=== PATIENT | female | born 1950 | race African-American/Black ===

== ENCOUNTER 2024-05-02 14:07 | Inpatient (IN) | payer OTHER, SELFPAY ==
--- NOTE | ~2024-05-02 | XR_ITS ---
EXAMINATION: XR chest 2V Exam Date/Time: 05/02/2024 17:30 CDT HISTORY: cough, sob Comparison: None. RESULT: Lines, tubes, and devices: None. Lungs and pleura: Mild diffuse reticular opacities with indistinct vessels. Segmental left lower lob e consolidation. Mild bilateral costophrenic angle blunting. Cardiomediastinal silhouette: Stable. Other: No acute osseous or upper abdominal finding. IMPRESSION: Segmental left lower lobe consolidation concerning for pneumonia, overlying changes of mild edema. Prater bsegmental opacities in the right lung base may represent atelectasis or additional sites of consolid ation. Small bilateral effusions. Reviewed, dictated and finalized at location K. IMPRESSION: Segmental left lower lobe consolidation concerning for pneumonia, overlying debbie nges of mild edema. Subsegmental opacities in the right lung base may represent atelectasis or additional sites of consolidation. Small bilateral effusions.
--- NOTE | ~2024-05-02 | XR_ITS ---
EXAMINATION: XR chest 2V DATE: 05/05/2024 14:23 INDICATION: Increased oxygen requirement. Shortness of breath. TECHNIQUE: Frontal and lateral views of the chest were obtained. COMPARISON: Chest 2 views 05/02/2024 FINDINGS: Calcified right lung nodules are consistent with old granulomatous disease. There are airsp alia opacities in the lower lung zones. No pleural effusion or pneumothorax. Cardiomegaly is noted. IMPRESSION: 1. Improved airspace opacities in the lower lung zones, consistent with atelectasis versus pneumonia. 2. Cardiomegaly. Reviewed, dictated and finalized at location A. IMPRESSION: 1. Improved airspace opacities in the lower lung zones, consistent with atelect asis versus pneumonia. 2. Cardiomegaly.
[2024-05-02 14:29] VITALS: BP 106/53; PULSE 98; RESP 20; TEMP 36.8; O2SAT 93
[2024-05-02 17:00] VITALS: BP 115/66; PULSE 93; RESP 20; TEMP 37.1; O2SAT 95; O2SAT 99
--- NOTE | 2024-05-02 17:14 | ED.SOB ---
HPI - SOB/Dyspnea General Chief Complaint: Shortness of Breath/Dyspnea Stated Complaint: SOb X1 month-weakness Time Seen by Provider: 05/02/24 17:00 History of Present Illness HPI Narrative: 74-year-old female history of hypertension presenting shortness of breath. Patient states that over the last month she has had progressive shortness of breath especially with exertion. States that she can barely go a few steps before she is out of breath. She went into urgent care today and she was found to be hypoxic on room air to 86 88%. She was placed on 2-3 L nasal cannula and her sats came up to the 90s. Patient states that she has used her 's inhaler a few times which seems to help. She denies any pain. She does complain of generalized weakness. No abdominal pain, leg swelling, vomiting, dysuria, lightheadedness, numbness, weakness, Fevers. States that she does start coughing if she tries to take a big breath. Related Data Allergies Allergy/AdvReac Type Severity Reaction Status Date / Time No Known Allergies Allergy Verified 05/02/24 14:08 Review of Systems Review of Systems: All systems reviewed & are unremarkable except as noted in HPI and below Exam Narrative: GENERAL: Nontoxic in no acute distress HEAD: Normocephalic, atraumatic. EYES: PERRLA and EOMI. ENT: Nares clear, no rhinorrhea or epistaxis NECK: Supple. CHEST: coarse sounds in the bases No respiratory distress. HEART: Regular rate and rhythm ABDOMEN: Soft, nontender, nondistended EXTREMITIES: Normal range of motion. No edema. SKIN: Warm, dry, no rash. NEURO: No focal deficits. Alert and oriented x3. PSYCH: Normal mood and affect. Course Vital Signs Vital signs: Vital Signs Temperature 98.3 F 05/02/24 14:29 Pulse Rate 98 05/02/24 14:29 Respiratory Rate 20 05/02/24 14:29 Blood Pressure 106/53 L 05/02/24 14:29 Pulse Oximetry 93 05/02/24 14:29 Oxygen Delivery Nasal Cannula 05/02/24 14:29 Oxygen Flow Rate 3 05/02/24 14:29 Temperature 98.7 F 05/02/24 17:00 Pulse Rate 91 05/02/24 18:29 Respiratory Rate 18 05/02/24 18:29 Blood Pressure 115/66 05/02/24 17:00 Pulse Oximetry 95 05/02/24 17:00 Oxygen Delivery Room Air 05/02/24 17:00 Oxygen Flow Rate 3 05/02/24 14:29 MDM - SOB/Dyspnea MDM Narrative Medical decision making narrative: 74-year-old female presenting with shortness of breath and hypoxia on room air. Patient was on 3 L nasal cannula on arrival, this was removed and she is actually maintaining her sats around 93%. EKG per my interpretation shows normal sinus rhythm, no ST elevations or depressions. chest x-ray is concerning for basilar consolidations. She does have a white count of nearly 13,000. Will cover her with Rocephin and azithromycin for community-acquired pneumonia. Patient states that she has had some symptomatic relief by using her 's inhaler, will order a breathing treatment as well. Feel she would benefit from admission for IV antibiotics given her age, multiple consolidations on x-ray, and the reported hypoxia earlier today. she is agreeable this plan. spoke with the hospitalist who has accepted her for admission. Differential Diagnosis Differential diagnosis: Likely acute exacerbation of chronic obstructive airways disease, congestive heart failure and community acquired pneumonia Medical Records Attestation: I reviewed the patient's medical records. Lab Data Attestation: I reviewed the patient's lab results. 05/02/24 17:52 05/02/24 17:52 Labs: Lab Results 05/02/24 05/02/24 Range/Units 17:52 17:52 WBC 12.3 H (4.5-10.0) K/mm3 RBC 4.76 (4.2-5.4) M/mm3 Hgb 12.9 (12.0-15.0) g/dL Hct 40.8 (37.0-47.0) % MCV 85.7 (80-100) fl MCH 27.1 (26-34) pg MCHC 31.6 L (32-36) g/dl RDW 15.1 H (11.5-14.5) % Plt Count 328 (150-375) k/mm3 MPV 9.2 (7.4-10.4) fl Immature Gran % (Auto) 0.8 H (0-0.5) % Neut % (Auto) 78.0 H (45.5-73.1) % Lymph % (Auto) 12.5 L (18.3-44.2) % [place] % (Auto) 5.9 (2.6-8.5) % Eos % (Auto) 2.2 (0-4.4) % Baso % (Auto) 0.6 (0.2-1.2) % Lymph # (Auto) 1.53 (0.9-3.2) K/mm3 [place] # (Auto) 0.7 H (0.1-0.6) K/mm3 Eos # (Auto) 0.3 (0-0.3) K/mm3 Baso # (Auto) 0.1 (0.0-0.1) K/mm3 Abs Immat Gran (auto) 0.10 H (0.00-0.031) K/mm3 Absolute Neuts (auto) 9.6 H (1.3-6.7) K/mm3 Absolute Nucleated RBC 0.000 (0.0-0.012) K/mm3 Nucleated RBC % 0.0 (0.0-0.2) % PT 15.1 H (11.1-14.7) Seconds INR 1.2 APTT 29.9 (22.3-36.8) Seconds Sodium 138 (137-145) mmol/L Potassium 4.2 (3.4-5.0) mmol/L Chloride 99 (98-107) mmol/L Carbon Dioxide 28 (22-30) mmol/L Anion Gap 11 (4-12) mmol/L BUN 24 H (7-17) mg/dL Creatinine 1.00 (0.7-1.0) mg/dL Estim Creat Clear Calc 46 ml/min Estimated GFR > 60 (59 - ) Glucose 88 (65-110) mg/dL Calcium 9.1 (8.4-10.2) mg/dL Total Bilirubin 0.4 (0.2-1.3) mg/dL AST 94 H (14-36) U/L ALT 27 (6-35) U/L Alkaline Phosphatase 56 (38-126) U/L Troponin I < 0.012 (0.000-0.034) ng/mL NT-Pro-B Natriuret Pep 101 H Cancelled (19.9-100) pg/mL Total Protein 8.0 (6.3-8.2) g/dL Albumin 3.7 (3.5-5.1) g/dL Influenza A (RT-PCR) Negative (Negative) Influenza B (RT-PCR) Negative (Negative) RSV (RT-PCR) Negative (Negative) SARS-CoV-2 RNA (RT-PCR) Negative (Negative) Imaging Data Radiologist's impression: ITS Impressions Chest X-Ray 05/02/24 17:40 IMPRESSION: Segmental left lower lobe consolidation concerning for pneumonia, overlying changes of mild edema. Subsegmental opacities in the right lung base may represent atelectasis or additional sites of consolidation. Small bilateral effusions. Critical Care Time Critical Care Time Critical Care Time: No Discharge Plan Discharge Clinical Impression: Community acquired pneumonia Patient Disposition: Still a Patient Condition: Stable Follow-up/Referrals: PHYSICIAN,INNOVATION ANALYST [Non-Staff] -
--- NOTE | 2024-05-02 17:17 | ECG_ITS ---
Test Date: 2024-05-02 18:10:30 Measurements Intervals [place] Rate: 87 P: 40 WA: 161 QRS: -3 QRSD: 87 T: 7 QT: 361 QTc: 436 Interpretive Statements SINUS RHYTHM NORMAL ELECTROCARDIOGRAM No previous ECG available for comparison Electronically Signed On 05-04-2024 07:12:05 CDT by Gregg Oneill M.D.
[2024-05-02] MEDS: SODIUM CHLORIDE 0.9% IV 1,000 ML 999 ML IV CONT (17:24)
[2024-05-02 17:59] LABS: Basophils Absolute Auto 0.1 K/mm3 (0.0-0.1); Basophils Percent Auto 0.6 % (0.2-1.2); Eosinophils Absolute Auto 0.3 K/mm3 (0-0.3); Eosinophils Percent Auto 2.2 % (0-4.4); Hematocrit 40.8 % (37.0-47.0); Hemoglobin 12.9 g/dL (12.0-15.0); Immature Granulocyte Percent A 0.8 % (0-0.5); Lymphocytes Absolute Auto 1.53 K/mm3 (0.9-3.2); Lymphocytes Percent Auto 12.5 % (18.3-44.2); Mean Corpuscular HGB Conc 31.6 g/dl (32-36); Mean Corpuscular Hemoglobin 27.1 pg (26-34); Mean Corpuscular Volume 85.7 fl (80-100); Mean Platelet Volume 9.2 fl (7.4-10.4); Monocytes Absolute Auto 0.7 K/mm3 (0.1-0.6); Monocytes Percent Auto 5.9 % (2.6-8.5); Neutrophils Absolute Auto 9.6 K/mm3 (1.3-6.7); Platelet Count Result 328 k/mm3 (150-375); Red Blood Count 4.76 M/mm3 (4.2-5.4); Red Cell Distribution Width 15.1 % (11.5-14.5); White Blood Count 12.3 K/mm3 (4.5-10.0)
[2024-05-02 18:10] LABS: INR 1.2; Partial Thromboplastin Time 29.9 Seconds (22.3-36.8); Prothrombin Time 15.1 Seconds (11.1-14.7)
[2024-05-02] MEDS: IPRATROPIUM BR 0.02% INH SOLN 0.5 MG/2.5 ML VIAL INHALATION (18:21)
[2024-05-02] MEDS: ALBUTEROL SULFATE NEB 2.5 MG/3 ML INH 5 MG INHALATION (18:21)
[2024-05-02 18:22] LABS: Alanine Aminotransferase 27 U/L (6-35); Albumin Level 3.7 g/dL (3.5-5.1); Alkaline Phosphatase 56 U/L (38-126); Anion Gap 11 mmol/L (4-12); Aspartate Amino Transferase 94 U/L (14-36); Bilirubin,Total 0.4 mg/dL (0.2-1.3); Blood Urea Nitrogen 24 mg/dL (7-17); Calcium 9.1 mg/dL (8.4-10.2); Carbon Dioxide 28 mmol/L (22-30); Chloride 99 mmol/L (98-107); Estimated CRCL calculation 46 ml/min; Estimated Glomerular Filt Rate > 60; Glucose 88 mg/dL (65-110); Potassium 4.2 mmol/L (3.4-5.0); Sodium 138 mmol/L (137-145)
[2024-05-02 18:23] VITALS: PULSE 85; RESP 15
[2024-05-02 18:29] VITALS: PULSE 91; RESP 18
[2024-05-02 18:34] LABS: NT Pro B Type Natriuretic Pept 101 pg/mL (19.9-100); Troponin I < 0.012 ng/mL (0.000-0.034)
[2024-05-02 18:36] LABS: Influenza A QL RT-PCR Negative (Negative); Influenza B QL RT-PCR Negative (Negative); RSV RNA, RT-PCR Negative (Negative); SARS-CoV-2 RNA PCR Negative (Negative)
--- NOTE | 2024-05-02 22:14 | P.HP_ITS ---
H&P: HPI History of Present Illness Date/Time: 05/02/24 22:14 Chief Complaint: shortness of breath/dyspnea Narrative: This is a 74-year-old female with a significant past medical history of hypertension who presents with shortness of breath/dyspnea and generalized weakness. patient was initially seen at the urgent care for her shortness of breath and they placed her on 2 L nasal cannula because they found her at 88% on room air. patient states that she has been feeling fatigued and short of breath for about a month. When her symptoms started she stated that she had some fevers, chills, and diaphoresis however that has resolved. She denies any fever, chills, nausea, vomiting, diarrhea, abdominal pain, chest pain. She states that her shortness of breath is more with exertion. Workup in the hospital included a chest x-ray which shown segmental left lower lobe consolidation concerning for pneumonia overlying changes of mild edema, subsegmental opacities in the right lung base representing atelectasis or additional sites of consolidation, small bilateral effusions. Initial labs included a white blood cell count of 12.3, AST 94, proBNP 101, troponin was negative. Respiratory panel was negative for influenza a and B, RSV, COVID. Blood cultures were obtained and are pending. Patient was given 1 L of normal saline, DuoNeb, Rocephin, azithromycin while in the ED. Review of Systems Review of Systems: All systems reviewed & are unremarkable except as noted in HPI and below Constitutional: Constitutional: Reports as per HPI and Reports no additional constitutional complaints Eyes: Eyes: Reports as per HPI and Reports no additional eye complaints ENT: Reports system reviewed and no additional complaints, except as documented and Reports as per HPI Cardiovascular: Cardiovascular: Reports as per HPI and Reports no additional cardiovascular complaints Respiratory: Respiratory: Reports as per HPI and Reports no additional respiratory complaints Gastrointestinal: Gastrointestinal: Reports as per HPI and Reports no additional gastrointestinal complaints Genitourinary: Genitourinary: Reports no additional female genitourinary complaints and Reports as per HPI Musculoskeletal: Musculoskeletal: Reports no additional musculoskeletal complaints and Reports as per HPI Integumentary/Breasts: Skin/Breast: Reports system reviewed and no additional complaints, except as docu and Reports as per HPI Neurologic: Reports system reviewed and no additional complaints, except as documented and Reports as per HPI Psychiatric: Psychiatric: Reports no additional psychiatric complaints and Reports as per HPI [facility] Past Medical History Medical History (Updated 05/02/24 @ 22:26 by Kandis Erickson APRN) Hypertension Family History Family History (Updated 05/02/24 @ 20:38 by Kelli Lisa RN) Sibling Acute myocardial infarction Other Dementia Social History Social History Smoking status: Never smoker Alcohol intake: never Substance use: never Substance use type: does not use Do You Feel Safe in your Home?: Yes Lack of Transportation: No Lack of Food: Never True Current Housing: I Have Housing Concerned About Future Housing: No Difficulty Paying Gas/Electric Bills: No Difficulty Paying for Meds: No Currently Unemployed: No Education: High School Diploma/GED Difficulty w/ Childcare or Family Care: No Spiritual care concerns: No Meds Home Medications and Allergies Home Medications Medication Instructions Recorded Confirmed Type cholecalciferol (vitamin D3) 50 50 mcg PO DAILY 05/02/24 05/02/24 History mcg (2,000 unit) tablet lisinopril 5 mg tablet 5 mg PO DAILY 05/02/24 05/02/24 History triamterene 37.5 1 tablet PO DAILY 05/02/24 05/02/24 History mg-hydrochlorothiazide 25 mg tablet Allergies Allergy/AdvReac Type Severity Reaction Status Date / Time No Known Allergies Allergy Verified 05/02/24 14:08 Vital Signs Vital Signs - 24 hr 05/02/24 14:29 05/02/24 17:00 05/02/24 17:00 Temperature 98.3 F 98.7 F Pulse Rate 98 93 Respiratory Rate 20 20 Blood Pressure 106/53 L 115/66 Pulse Oximetry 93 99 95 Oxygen Delivery Nasal Cannula Room Air Oxygen Flow Rate 3 05/02/24 18:23 05/02/24 18:29 Temperature Pulse Rate 85 91 Respiratory Rate 15 18 Blood Pressure Pulse Oximetry Oxygen Delivery Oxygen Flow Rate Exam Narrative: General: In no acute distress, well nourished Head: atraumatic, no encephalopathy Eyes: EOMI, PERRLA, sclera clear ENT: moist mucous membranes, nasal passages clear Neck: supple, no JVD, no adenopathy, trachea midline Cardiac: Normal S1 and S2. RRR,No murmur, gallops or friction rubs, peripheral pulses intact. Respiratory: crackles noted to bilateral lung bases, no adventitious lung sounds, currently on room air Gastrointestinal: soft, non-distended, non-tender, normoactive bowel sounds. : voiding without difficulty. Extremities: moves all extremities well, very mild pitting edema to bilateral lower extremity, good ROM, strength 5/5 Skin: clean, dry, intact. No wounds or lesions. Neuro: Alert and oriented x4, cranial nerves intact, no neuro deficits. Psych: normal mood, normal affect, interactive H&P: Results Labs Labs: Short CBC 05/02/24 Range/Units 17:52 WBC 12.3 H (4.5-10.0) K/mm3 Hgb 12.9 (12.0-15.0) g/dL Hct 40.8 (37.0-47.0) % Plt Count 328 (150-375) k/mm3 BMP 05/02/24 17:52 Sodium 138 Potassium 4.2 Chloride 99 Carbon Dioxide 28 BUN 24 H Creatinine 1.00 Glucose 88 Calcium 9.1 Cardiac Enzymes 05/02/24 Range/Units 17:52 Troponin I < 0.012 (0.000-0.034) ng/mL Liver Function 05/02/24 Range/Units 17:52 Total Bilirubin 0.4 (0.2-1.3) mg/dL AST 94 H (14-36) U/L ALT 27 (6-35) U/L Alkaline Phosphatase 56 (38-126) U/L Albumin 3.7 (3.5-5.1) g/dL Imaging Chest x-ray: Radiologist's impression: EXAMINATION: XR chest 2V Exam Date/Time: 05/02/2024 17:30 CDT HISTORY: cough, sob Comparison: None. RESULT: Lines, tubes, and devices: None. Lungs and pleura: Mild diffuse reticular opacities with indistinct vessels. Segmental left lower lobe consolidation. Mild bilateral costophrenic angle blunting. Cardiomediastinal silhouette: Stable. Other: No acute osseous or upper abdominal finding. IMPRESSION: Segmental left lower lobe consolidation concerning for pneumonia, overlying changes of mild edema. Subsegmental opacities in the right lung base may represent atelectasis or additional sites of consolidation. Small bilateral effusions. Reviewed, dictated and finalized at location K. Assessment and Plan Assessment and plan (1) Acute respiratory failure with hypoxia: Code(s): J96.01 - Acute respiratory failure with hypoxia Status: Acute Assessment and Plan: 05/02/24: * patient initially seen at the urgent care and was found to be hypoxic at 88% on room air and was placed on 2 L nasal cannula sent to the hospital for further evaluation. Patient was weaned to room air while in the ED. * likely secondary to pneumonia * chest x-ray showing pneumonia * Rocephin and azithromycin started * respiratory panel was negative for influenza a and B, RSV, COVID * continue DuoNebs (2) Community acquired pneumonia: Code(s): J18.9 - Pneumonia, unspecified organism Status: Acute Assessment and Plan: 05/02/24: * chest x-ray showing segmental left lower lobe consolidation concerning for pneumonia with overlying changes of mild edema, subsegmental opacities in the right lung base representing atelectasis verses additional site of consolidation, small bilateral effusions. * White blood cell count 12.3, proBNP was 101 * respiratory panel was negative for influenza a and B, RSV, COVID * continue Rocephin and azithromycin for community acquired pneumonia * continue DuoNebs (3) Hypertension: Code(s): I10 - Essential (primary) hypertension Status: Acute Assessment and Plan: 05/02/24: * continue lisinopril and Triamterene/HCTZ Quality VTE Prophylaxis VTE prophylaxis: pharmacologic ordered Hospitalist MIPS Advance Care Plan I have confirmed that the patient's Advanced Care Plan is present, code status is documented, or surrogate decision maker is listed in patient medical record.: Yes Medication Reconciliation I have utilized all available resources to obtain, update and review the patients current medications (includes all prescriptions, OTC, herbals, cannabis, and nutritional supplements).: Yes
--- NOTE | 2024-05-02 22:26 | PC.NURSE ---
Patient required multiple attempts at blood cultures. one set was successfully drawn and patient refused to allow any more sticks. patient stated you can come tomorrow and stick me in the morning phlebotomy is now making an attempt to draw labs. patient was taken to the bathroom with a tech who said that she didn't have an order for urine sample. patient unable to void at the time of transport to [facility].
[2024-05-02] MEDS: AZITHROMYCIN 500 MG/NS 250 ML 500 MG/250 ML BAG 250 MG IVPB (22:38)
[2024-05-02 22:42] VITALS: BMI 27.6
[2024-05-02 22:55] VITALS: BP 119/61; PULSE 110; RESP 22; TEMP 37; O2SAT 91
[2024-05-02 22:56] LABS: Troponin I < 0.012 ng/mL (0.000-0.034)
[2024-05-02 23:00] LABS: Add Urine Microscopic? YES; Appearance Urine Clear (Clear); Bacteria Urine 1+ /hpf; Bilirubin Urine Negative (Negative); Blood Urine Negative (Negative); Color Urine Yellow (Yellow); Glucose Urine UA Negative (Negative); Ketones Urine Negative (Negative); Leukocyte Esterase Ur 1+ LEU/UL (Negative); Nitrate Urine Negative (Negative); Non Pathogenic Casts 0-2; Protein Urine Negative (Negative); RBC Urine 0-2 /hpf (0-2); Specific Grav Ur 1.016 (1.001-1.035); Squamous Epithelial Cell Urine Few /hpf (Few)
[2024-05-03] VITALS (17 sets, daily range): BP systolic 102–125; BP diastolic 55–58; PULSE 79–108; RESP 18–22; TEMP 37–37.2; O2SAT 85–97
--- NOTE | 2024-05-03 | ECHO_ITS ---
Patient Info Name: Niraj Antonio Age: 74 years : 1950 Gender: Female Ht: 66 in Wt: 172 lbs BSA: 1.92 m2 HR: 87 bpm BP: 102 / 55 mmHg Heart Rhythm: Sinus Rhythm Technical Quality: Good Exam Date: 05/03/2024 11:31 AM Exam Location: Echo Lab Patient Status: Outpatient Admit Date: 05/02/2024 Staff Ordering Physician: Kandis Erickson APRN Manager Program Management: Faye Crowley RDCS Attending Provider: Gem Reyna PA-C Referring Physician: Dre HOLLIS; Exam Type: CA echo doppler color flow Study Info Indications - shortness of breath , fatigue Complete two-dimensional, color flow and Doppler transthoracic echocardiogram is performed. Summary 1. Complete two-dimensional, color flow and Doppler transthoracic echocardiogram is performed. 2. Normal left ventricular size and thickness with hyperdynamic systolic contractility. 3. Grade 1 diastolic noncompliance. 4. No valvular dysfunction. 5. Sinus rhythm. Left Ventricle Left ventricular chamber dimension is normal. Left ventricular systolic function is hyperdynamic, estimated at >70%. The left ventricular diastolic function is grade I diastolic dysfunction. Right Ventricle Right ventricular chamber dimension is normal. Left Atria Left atrial chamber dimension is normal. Right Atria Right atrial chamber dimension is normal. Aortic Valve The aortic valve is normal. Pulmonic Valve The pulmonic valve is not well visualized. Mitral Valve The mitral valve has normal leaflets. Tricuspid Valve The tricuspid valve leaflets are normal. Pericardium/Pleural The pericardium appears normal. Aorta The aortic root size at the sinus of Valsalva is normal. Left Ventricular Outflow Tract Name Value Normal LVOT 2D LVOT Diameter 2.1 cm LVOT Doppler LVOT Peak Gradient 5 mmHg LVOT Mean Gradient 3 mmHg LVOT VTI 19 cm LVOT VTI/AV VTI Ratio 0.8 LVOT Stroke Volume 65 ml LVOT CO 5.8 l/min LVOT CI 3.0 l/min/m2 Pulmonic Valve Name Value Normal PV Doppler PV Peak Gradient 6 mmHg Mitral Valve Name Value Normal MV Doppler MV Decel [place] 446 cm/s2 MV PHT 50 ms MV Area (PHT) 4.4 cm2 4.0-5.0 MV Diastolic Function MV E Peak Velocity 77 cm/s MV A Peak Velocity 94 cm/s MV E/A 0.8 MV Decel Time 172 ms MV Annular TDI MV E/e' (Septal) 8.1 <=8.0 MV E/e' (Lateral) 6.8 <=8.0 MV E/e' (Average) 7.5 Tricuspid Valve Name Value Normal TV Regurgitation Doppler TR Peak Velocity 202 cm/s TR Peak Gradient 9 mmHg Estimated PAP/RSVP RA Pressure 10 mmHg <=5 PA Systolic Pressure 26 mmHg <36 RV Systolic Pressure 26 mmHg <36 Aortic Valve Name Value Normal AV Doppler AV Peak Velocity 123 cm/s AV Peak Gradient 6 mmHg AV Mean Gradient 4 mmHg AV VTI 24 cm AV Area (Cont Eq VTI) 2.7 cm2 >=3.0 AV Area (Cont Eq Rinku) 3.0 cm2 AV Regurgitation 2D LVOT Area 3.4 cm2 Ventricles Name Value Normal LV Dimensions 2D/MM IVS Diastolic Thickness (2D) 0.9 cm 0.6-1.0 LVID Diastole (2D) 5.4 cm 3.8-5.2 LVIW Diastolic Thickness (2D) 0.9 cm 0.6-0.9 LVID Systole (2D) 3.4 cm 2.2-3.5 LVOT Diameter 2.1 cm LV Mass (2D Cubed) 176.77 g 67.00-162.00 LV Mass Index (2D Cubed) 92 g/m2 43-95 Relative Wall Thickness (2D) 0.33 LV Fractional Shortening/Ejection Fraction 2D/MM LV Fractional Shortening (2D) 37 % 27-45 LV EF (2D Teicholz) 67 % 54-74 LV Diastolic Volume (4C MOD) 99 ml LV EF (4C MOD) 61 % LV Diastolic Volume (2C MOD) 93 ml LV EF (2C MOD) 63 % LV Diastolic Volume (BP MOD) 96 ml 46-106 LV Diastolic Volume Index (BP MOD) 50 ml/m2 29-61 LV Systolic Volume (BP MOD) 38 ml 14-42 LV Systolic Volume Index (BP MOD) 20 ml/m2 8-24 LV EF (BP MOD) 60 % 54-74 LV Diastolic Length (4C) 8.2 cm LV Systolic Length (4C) 6.9 cm LV Stroke Volume (4C MOD) 60 ml Atria Name Value Normal LA Dimensions LA Volume (4C A-L) 25 ml LA Volume (BP A-L) 27 ml RA Dimensions RA Area (4C) 7.8 cm2 <=18.0 Report Signatures
[2024-05-03] MEDS: IPRATROPIUM 0.5 MG/ALBUTEROL SULFATE 2.5 MG AMPUL.NEB 3 ML INHALATION ×4 (01:39→19:44)
[2024-05-03 07:02] LABS: Basophils Absolute Auto 0.1 K/mm3 (0.0-0.1); Basophils Percent Auto 0.7 % (0.2-1.2); Eosinophils Absolute Auto 0.4 K/mm3 (0-0.3); Eosinophils Percent Auto 3.3 % (0-4.4); Hematocrit 36.1 % (37.0-47.0); Hemoglobin 10.9 g/dL (12.0-15.0); Immature Granulocyte Percent A 0.8 % (0-0.5); Lymphocytes Absolute Auto 1.63 K/mm3 (0.9-3.2); Lymphocytes Percent Auto 13.4 % (18.3-44.2); Mean Corpuscular HGB Conc 30.2 g/dl (32-36); Mean Corpuscular Hemoglobin 26.7 pg (26-34); Mean Corpuscular Volume 88.5 fl (80-100); Mean Platelet Volume 9.7 fl (7.4-10.4); Monocytes Absolute Auto 1.1 K/mm3 (0.1-0.6); Monocytes Percent Auto 9.2 % (2.6-8.5); Neutrophils Absolute Auto 8.8 K/mm3 (1.3-6.7); Neutrophils Percent Auto 72.6 % (45.5-73.1); Platelet Count Result 294 k/mm3 (150-375); Red Blood Count 4.08 M/mm3 (4.2-5.4); Red Cell Distribution Width 15.2 % (11.5-14.5); White Blood Count 12.1 K/mm3 (4.5-10.0)
[2024-05-03 07:31] LABS: Alanine Aminotransferase 22 U/L (6-35); Albumin Level 3.1 g/dL (3.5-5.1); Alkaline Phosphatase 45 U/L (38-126); Anion Gap 10 mmol/L (4-12); Aspartate Amino Transferase 73 U/L (14-36); Bilirubin,Total 0.3 mg/dL (0.2-1.3); Blood Urea Nitrogen 19 mg/dL (7-17); Calcium 8.2 mg/dL (8.4-10.2); Carbon Dioxide 23 mmol/L (22-30); Chloride 103 mmol/L (98-107); Estimated CRCL calculation 46 ml/min; Estimated Glomerular Filt Rate > 60; Glucose 108 mg/dL (65-110); Potassium 3.8 mmol/L (3.4-5.0); Sodium 136 mmol/L (137-145)
--- NOTE | 2024-05-03 07:39 | PM.IMPN ---
Progress Note: A&P Assessment and Plan (1) Acute respiratory failure with hypoxia: Code(s): J96.01 - Acute respiratory failure with hypoxia Status: Acute Assessment and Plan: Patient initially seen at the urgent care and was found to be hypoxic at 88% on room air and was placed on 2 L nasal cannula sent to the hospital for further evaluation. Patient was weaned to room air while in the ED. - likely secondary to pneumonia - chest x-ray: Segmental left lower lobe consolidation concerning for pneumonia, overlying changes of mild edema. Subsegmental opacities in the right lung base may represent atelectasis or additional sites of consolidation. Small bilateral effusions. - Rocephin and azithromycin started on 05/02 - respiratory panel was negative for influenza a and B, RSV, COVID - BNP 101 - Echo: LVEF > 70% and grade I diastolic dysfunction - continue DuoNebs (2) Community acquired pneumonia: Code(s): J18.9 - Pneumonia, unspecified organism Status: Acute Assessment and Plan: CXR: Segmental left lower lobe consolidation concerning for pneumonia, overlying changes of mild edema. Subsegmental opacities in the right lung base may represent atelectasis or additional sites of consolidation. Small bilateral effusions. - started on CAP tx: azithromycin ceftriaxone on 05/02 - Viral PCR: negative for Flu/COVID/RSV - Send sputum cultures - initially requiring 2L NC w/ EMS, weaned to baseline RA in ED. Keep SpO2 greater than 90%. - supportive treatment tyl and ibu prn nebs prn - Monitor vital signs, I&Os, neuro status and patient is a fall risk - Follow WBC, serum electrolytes, temperature curves and cultures (3) Hypertension: Code(s): I10 - Essential (primary) hypertension Status: Acute Assessment and Plan: Chronic, continue home medications. - continue lisinopril and Triamterene/HCTZ Time Spent With Patient Time with patient: 25 - 35 minutes Subjective Date/time seen: 05/03/24 07:39 Interval history: 74-year-old female with a significant past medical history of hypertension who presents with shortness of breath/dyspnea and generalized weakness. patient was initially seen at the urgent care for her shortness of breath and they placed her on 2 L nasal cannula because they found her at 88% on room air. Patient is pleasant lying comfortably in bed. She continues to endorse shortness of breath, but notes this has improved since admission. She denies chest pain, palpitations, nausea/vomiting and changes in bowel/bladder. She remains on CAP treatment at this time. Echo was normal. Review of Systems Review of Systems: All systems reviewed & are unremarkable except as noted in HPI and below Exam Narrative: AF HR 87 RR 20 SpO2 92 BP 102/55 General: female in no acute respiratory distress who is nontoxic appearing, lying semi recumbent in bed. HEENT: Normocephalic. Atraumatic. Extraocular movement intact. Sclera clear and anicteric. No facial asymmetry. Chest: Lungs with crackles to lower bases on auscultation bilaterally. No wheezes or crackles. CV: Heart was regular rate and rhythm. S1-S2. No murmurs, gallops, or rubs. Abd: Abdomen was soft. Nontender. Nondistended. Positive bowel sounds. No organomegaly or masses. Ext: No clubbing, cyanosis, or edema. 2+ DP pulses bilaterally. Neuro: Patient is alert and oriented x4. Cranial nerves 2-12 are intact. Speech is clear. Psych: Normal nood and affect. Patient is pleasant and cooperative. Objective Data Vital Signs Vital Signs: Vital Signs - 24 hr 05/02/24 14:29 05/02/24 17:00 05/02/24 17:00 Temperature 98.3 F 98.7 F Pulse Rate 98 93 Respiratory Rate 20 20 Blood Pressure 106/53 L 115/66 Pulse Oximetry 93 99 95 Oxygen Delivery Nasal Cannula Room Air Oxygen Flow Rate 3 05/02/24 18:23 05/02/24 18:29 05/02/24 22:55 Temperature 98.6 F Pulse Rate 85 91 110 H Respiratory Rate 15 18 22 H Blood Pressure 119/61 Pulse Oximetry 91 Oxygen Delivery Oxygen Flow Rate 05/03/24 01:42 05/03/24 01:46 05/03/24 00:00 Temperature Pulse Rate 92 95 108 H Respiratory Rate 20 20 Blood Pressure Pulse Oximetry Oxygen Delivery Oxygen Flow Rate 05/03/24 05:05 05/03/24 04:00 Temperature 98.6 F Pulse Rate 87 88 Respiratory Rate 20 Blood Pressure 102/55 L Pulse Oximetry 92 Oxygen Delivery Oxygen Flow Rate Intake/Output Intake/Output: Intake & Output 04/30/24 05/01/24 05/02/24 05/03/24 23:59 23:59 23:59 23:59 Intake Total 1000 75 Output Total 250 Balance 1000 -175 Meds/Results Medications: Active Medications Generic Name Dose Route Start Last Admin Trade Name Freq PRN Reason Stop Dose Admin Acetaminophen 650 mg 05/02/24 22:19 Acetaminophen 325 Mg Tablet PO Q4H PRN Mild Pain (1-3) or Fever Albuterol/Ipratropium 3 ml 05/03/24 02:00 05/03/24 01:39 Ipratropium 0.5 Mg/Albuterol Sulfate 2.5 Mg Ampul.Neb 3 Ml INHALATION 3 ml Q6HRT [facility] Administration Enoxaparin Sodium 40 mg 05/03/24 09:00 Enoxaparin 40 Mg/0.4 Ml Syringe SUB-Q DAILY [facility] Ceftriaxone Sodium 1 gm in 50 mls @ 100 mls/hr 05/03/24 21:00 Rocephin 1 Gm/Ns 50 Ml IVPB HS [facility] Azithromycin 500 mg in 250 mls @ 250 mls/hr 05/03/24 21:00 Zithromax IVPB HS [facility] Lisinopril 5 mg 05/03/24 18:00 Lisinopril 5 Mg Tablet PO QPM [facility] Ondansetron HCl 4 mg 05/02/24 22:19 Ondansetron Inj 4 Mg/2 Ml Vial IV PUSH Q6H PRN Nausea And Vomiting Perflutren Lipid Microsphere 0 ml 05/03/24 00:07 Perflutren Lipid Microspheres 1.5 Ml Vial Diluted To 10 Ml Total Volume IV PUSH 05/06/24 00:07 ONCE PRN adequate visualization Protocol Triamterene/Hydrochlorothiazide 1 tab 05/03/24 18:00 Triamterene 37.5 Mg/Hctz 25 Mg (Maxzide) Tablet PO QPM [facility] Vitamin D 2,000 units 05/03/24 09:00 Cholecalciferol 1,000 Units Tablet PO DAILY [facility] Radiology Results: ITS Impressions Chest X-Ray 05/02/24 17:40 IMPRESSION: Segmental left lower lobe consolidation concerning for pneumonia, overlying changes of mild edema. Subsegmental opacities in the right lung base may represent atelectasis or additional sites of consolidation. Small bilateral effusions. Labs Labs: Laboratory Results - last 24 hr 05/02/24 05/02/24 05/02/24 17:52 17:52 22:28 WBC 12.3 H RBC 4.76 Hgb 12.9 Hct 40.8 MCV 85.7 MCH 27.1 MCHC 31.6 L RDW 15.1 H Plt Count 328 MPV 9.2 Immature Gran % (Auto) 0.8 H Neut % (Auto) 78.0 H Lymph % (Auto) 12.5 L [place] % (Auto) 5.9 Eos % (Auto) 2.2 Baso % (Auto) 0.6 Lymph # (Auto) 1.53 [place] # (Auto) 0.7 H Eos # (Auto) 0.3 Baso # (Auto) 0.1 Abs Immat Gran (auto) 0.10 H Absolute Neuts (auto) 9.6 H Absolute Nucleated RBC 0.000 Nucleated RBC % 0.0 PT 15.1 H INR 1.2 APTT 29.9 Sodium 138 Potassium 4.2 Chloride 99 Carbon Dioxide 28 Anion Gap 11 BUN 24 H Creatinine 1.00 Estim Creat Clear Calc 46 Estimated GFR > 60 Glucose 88 Calcium 9.1 Total Bilirubin 0.4 AST 94 H ALT 27 Alkaline Phosphatase 56 Troponin I < 0.012 < 0.012 NT-Pro-B Natriuret Pep 101 H Cancelled Total Protein 8.0 Albumin 3.7 Urine Color Urine Appearance Urine pH Ur Specific [place] Urine Protein Urine Glucose (UA) Urine Ketones Ur Blood (Man) Urine Nitrate Urine Bilirubin Urine Urobilinogen Leukocyte Esterase Rfl Urine RBC Urine WBC Ur Squamous Epith Cells Urine Bacteria Urine Casts Influenza A (RT-PCR) Negative Influenza B (RT-PCR) Negative RSV (RT-PCR) Negative SARS-CoV-2 RNA (RT-PCR) Negative 05/02/24 05/03/24 22:46 06:12 WBC 12.1 H RBC 4.08 L Hgb 10.9 L Hct 36.1 L MCV 88.5 MCH 26.7 MCHC 30.2 L RDW 15.2 H Plt Count 294 MPV 9.7 Immature Gran % (Auto) 0.8 H Neut % (Auto) 72.6 Lymph % (Auto) 13.4 L [place] % (Auto) 9.2 H Eos % (Auto) 3.3 Baso % (Auto) 0.7 Lymph # (Auto) 1.63 [place] # (Auto) 1.1 H Eos # (Auto) 0.4 H Baso # (Auto) 0.1 Abs Immat Gran (auto) 0.10 H Absolute Neuts (auto) 8.8 H Absolute Nucleated RBC 0.000 Nucleated RBC % 0.0 PT INR APTT Sodium 136 L Potassium 3.8 Chloride 103 Carbon Dioxide 23 Anion Gap 10 BUN 19 H Creatinine 1.00 Estim Creat Clear Calc 46 Estimated GFR > 60 Glucose 108 Calcium 8.2 L Total Bilirubin 0.3 AST 73 H ALT 22 Alkaline Phosphatase 45 Troponin I NT-Pro-B Natriuret Pep Total Protein 7.0 Albumin 3.1 L Urine Color Yellow Urine Appearance Clear Urine pH 6.0 Ur Specific [place] 1.016 Urine Protein Negative Urine Glucose (UA) Negative Urine Ketones Negative Ur Blood (Man) Negative Urine Nitrate Negative Urine Bilirubin Negative Urine Urobilinogen 1.0 Leukocyte Esterase Rfl 1+ H Urine RBC 0-2 Urine WBC 6-10 H Ur Squamous Epith Cells Few Urine Bacteria 1+ H Urine Casts 0-2 Influenza A (RT-PCR) Influenza B (RT-PCR) RSV (RT-PCR) SARS-CoV-2 RNA (RT-PCR) Quality VTE Prophylaxis VTE prophylaxis: pharmacologic ordered Hospitalist [facility] Advance Care Plan I have confirmed that the patient's Advanced Care Plan is present, code status is documented, or surrogate decision maker is listed in patient medical record.: Yes Medication Reconciliation I have utilized all available resources to obtain, update and review the patients current medications (includes all prescriptions, OTC, herbals, cannabis, and nutritional supplements).: Yes
[2024-05-03 07:42] LABS: Troponin I < 0.012 ng/mL (0.000-0.034)
[2024-05-03] MEDS: ENOXAPARIN 40 MG/0.4 ML SYRINGE SUB-Q (09:06)
[2024-05-03] MEDS: CHOLECALCIFEROL 1,000 UNITS TABLET 2000 UNITS PO (09:06)
[2024-05-03] MEDS: lisinopriL 5 MG TABLET PO (17:44)
[2024-05-03] MEDS: TRIAMTERENE 37.5 MG/HCTZ 25 MG (MAXZIDE) TABLET 1 TAB PO (17:44)
[2024-05-03] MEDS: AZITHROMYCIN 500 MG/NS 250 ML 500 MG/250 ML BAG 250 MG IVPB (20:24)
[2024-05-04] VITALS (18 sets, daily range): BP systolic 112–133; BP diastolic 45–66; PULSE 83–97; RESP 18–20; TEMP 36.3–36.8; O2SAT 91–98
[2024-05-04] MEDS: IPRATROPIUM 0.5 MG/ALBUTEROL SULFATE 2.5 MG AMPUL.NEB 3 ML INHALATION ×4 (02:40→21:22)
[2024-05-04 06:53] LABS: Basophils Absolute Auto 0.1 K/mm3 (0.0-0.1); Basophils Percent Auto 0.9 % (0.2-1.2); Eosinophils Absolute Auto 0.5 K/mm3 (0-0.3); Eosinophils Percent Auto 3.7 % (0-4.4); Hematocrit 34.1 % (37.0-47.0); Hemoglobin 10.4 g/dL (12.0-15.0); Immature Granulocyte Absolute 0.08 K/mm3 (0.00-0.031); Immature Granulocyte Percent A 0.6 % (0-0.5); Lymphocytes Absolute Auto 1.86 K/mm3 (0.9-3.2); Lymphocytes Percent Auto 14.5 % (18.3-44.2); Mean Corpuscular HGB Conc 30.5 g/dl (32-36); Mean Corpuscular Hemoglobin 26.5 pg (26-34); Mean Corpuscular Volume 86.8 fl (80-100); Mean Platelet Volume 9.2 fl (7.4-10.4); Monocytes Absolute Auto 1.1 K/mm3 (0.1-0.6); Monocytes Percent Auto 8.5 % (2.6-8.5); Neutrophils Absolute Auto 9.2 K/mm3 (1.3-6.7); Neutrophils Percent Auto 71.8 % (45.5-73.1); Platelet Count Result 277 k/mm3 (150-375); Red Blood Count 3.93 M/mm3 (4.2-5.4); Red Cell Distribution Width 14.9 % (11.5-14.5); White Blood Count 12.8 K/mm3 (4.5-10.0)
[2024-05-04 07:04] LABS: Alanine Aminotransferase 22 U/L (6-35); Alkaline Phosphatase 41 U/L (38-126); Anion Gap 8 mmol/L (4-12); Aspartate Amino Transferase 67 U/L (14-36); Bilirubin,Total 0.2 mg/dL (0.2-1.3); Blood Urea Nitrogen 15 mg/dL (7-17); Calcium 8.1 mg/dL (8.4-10.2); Carbon Dioxide 25 mmol/L (22-30); Chloride 102 mmol/L (98-107); Estimated CRCL calculation 51 ml/min; Estimated Glomerular Filt Rate > 60; Glucose 101 mg/dL (65-110); Potassium 3.6 mmol/L (3.4-5.0); Sodium 135 mmol/L (137-145)
--- NOTE | 2024-05-04 07:30 | P.PNIM_ITS ---
Progress Note: A&P Assessment and Plan (1) Acute respiratory failure with hypoxia: Code(s): J96.01 - Acute respiratory failure with hypoxia Status: Acute Assessment and Plan: Patient initially seen at the urgent care and was found to be hypoxic at 88% on room air and was placed on 2 L nasal cannula sent to the hospital for further evaluation. Patient was weaned to room air while in the ED. - likely secondary to pneumonia - chest x-ray: Segmental left lower lobe consolidation concerning for pneumonia, overlying changes of mild edema. Subsegmental opacities in the right lung base may represent atelectasis or additional sites of consolidation. Small bilateral effusions. - Rocephin and azithromycin started on 05/02 - respiratory panel was negative for influenza a and B, RSV, COVID - BNP 101 - Echo: LVEF > 70% and grade I diastolic dysfunction - continue DuoNebs 05/04: Patient has been placed back on supplemental oxygen. Per RN patient was dropping into the mid 80s with ambulation. She is now on 1L NC at rest. Will continue to wean as tolerated. If patient continues to require O2 supplementation a home O2 eval will need to be done prior to discharge. (2) Community acquired pneumonia: Code(s): J18.9 - Pneumonia, unspecified organism Status: Acute Assessment and Plan: CXR: Segmental left lower lobe consolidation concerning for pneumonia, overlying changes of mild edema. Subsegmental opacities in the right lung base may represent atelectasis or additional sites of consolidation. Small bilateral effusions. - started on CAP tx: azithromycin ceftriaxone on 05/02 - Viral PCR: negative for Flu/COVID/RSV - initially requiring 2L NC w/ EMS, weaned to baseline RA in ED. Now require 1L NC with rest and 2 L NC with ambulation. Continue to wean as tolerated for a SpO2 > 90. - supportive treatment tyl and ibu prn nebs prn - Monitor vital signs, I&Os, neuro status and patient is a fall risk - Follow WBC, serum electrolytes, temperature curves and cultures (3) Hypertension: Code(s): I10 - Essential (primary) hypertension Status: Acute Assessment and Plan: Chronic, continue home medications. - continue lisinopril and Triamterene/HCTZ Plan Diet: Regular diet DVT ppx: Lovenox Code: Full Disposition: Patient reports for SOB and new O2 requirement from an urgent care. Chest XR showing pneumonia. Was weaned back to baseline RA, however last night started having drops to mid 80s. Now on 1L at rest and 2 L with ambulation. She remains on rocephin and azithro. Time Spent With Patient Time with patient: 25 - 35 minutes Subjective Date/time seen: 05/04/24 07:30 Interval history: 74-year-old female with a significant past medical history of hypertension who presents with shortness of breath/dyspnea and generalized weakness. Patient was initially seen at the urgent care for her shortness of breath and they placed her on 2 L nasal cannula because they found her at 88% on room air. Patient is pleasant sitting on the side of the bed. Per RN she had a drop in her saturation overnight with SpO2 in the mid 80s with ambulation. She was started on 2 L with ambulation and remains on 1 L NC at rest. Will continue to wean as tolerated. Patient states that her shortness of breath has been improving. She denies chest pain, nausea/vomiting and changes in bowel/bladder. She did endorse slight dizziness when initially standing to ambulate to her bathroom. Discussed with patient the importance of slow position changes as she has been more bed bound while in the hospital. PT/OT continues to follow. Review of Systems Review of Systems: All systems reviewed & are unremarkable except as noted in HPI and below Exam Narrative: AF HR 86 RR 18 SpO2 96 1L NC BP 112/45 General: female in no acute respiratory distress who is nontoxic appearing, lying semi recumbent in bed. HEENT: Normocephalic. Atraumatic. Extraocular movement intact. Sclera clear and anicteric. No facial asymmetry. Chest: Lungs with crackles to lower bases on auscultation bilaterally. No wheezes. [address] CV: Heart was regular rate and rhythm. S1-S2. No murmurs, gallops, or rubs. Abd: Abdomen was soft. Nontender. Nondistended. Positive bowel sounds. No organomegaly or masses. Neuro: Speech is clear. Objective Data Vital Signs Vital Signs: Vital Signs - 24 hr 05/03/24 08:14 05/03/24 08:14 05/03/24 08:57 Temperature Pulse Rate 79 88 Respiratory Rate 20 18 Blood Pressure Pulse Oximetry 91 Oxygen Delivery Room Air Oxygen Flow Rate 05/03/24 09:10 05/03/24 14:05 05/03/24 14:13 Temperature Pulse Rate 83 87 Respiratory Rate 18 18 Blood Pressure Pulse Oximetry Oxygen Delivery Room Air Oxygen Flow Rate 05/03/24 08:00 05/03/24 12:00 05/03/24 14:00 Temperature 98.6 F Pulse Rate 84 93 102 H Respiratory Rate 22 H Blood Pressure 104/58 L Pulse Oximetry 85 L Oxygen Delivery Oxygen Flow Rate 05/03/24 16:00 05/03/24 19:44 05/03/24 19:44 Temperature Pulse Rate 87 88 Respiratory Rate 18 Blood Pressure Pulse Oximetry 94 Oxygen Delivery Nasal Cannula Oxygen Flow Rate 1 05/03/24 19:50 05/03/24 20:59 05/03/24 20:00 Temperature 99 F Pulse Rate 89 95 99 Respiratory Rate 18 18 Blood Pressure 125/55 L Pulse Oximetry 97 Oxygen Delivery Oxygen Flow Rate 05/03/24 20:00 05/04/24 02:40 05/04/24 00:00 Temperature Pulse Rate 89 91 Respiratory Rate Blood Pressure Pulse Oximetry 92 Oxygen Delivery Nasal Cannula Oxygen Flow Rate 2 05/04/24 04:00 05/04/24 05:14 Temperature 98.2 F Pulse Rate 96 86 Respiratory Rate 18 Blood Pressure 112/45 L Pulse Oximetry 96 Oxygen Delivery Oxygen Flow Rate Intake/Output Intake/Output: Intake & Output 05/01/24 05/02/24 05/03/24 05/04/24 23:59 23:59 23:59 23:59 Intake Total 1000 995 300 Output Total 250 Balance 1000 745 300 Meds/Results Medications: Active Medications Generic Name Dose Route Start Last Admin Trade Name Freq PRN Reason Stop Dose Admin Acetaminophen 650 mg 05/02/24 22:19 Acetaminophen 325 Mg Tablet PO Q4H PRN Mild Pain (1-3) or Fever Albuterol/Ipratropium 3 ml 05/03/24 02:00 05/04/24 02:40 Ipratropium 0.5 Mg/Albuterol Sulfate 2.5 Mg Ampul.Neb 3 Ml INHALATION 3 ml Q6HRT [facility] Administration Enoxaparin Sodium 40 mg 05/03/24 09:00 05/03/24 09:06 Enoxaparin 40 Mg/0.4 Ml Syringe SUB-Q 40 mg DAILY [facility] Administration Ceftriaxone Sodium 1 gm in 50 mls @ 100 mls/hr 05/03/24 21:00 05/03/24 20:24 Rocephin 1 Gm/Ns 50 Ml IVPB 100 mls/hr HS [facility] Administration Azithromycin 500 mg in 250 mls @ 250 mls/hr 05/03/24 21:00 05/03/24 20:24 Zithromax IVPB 250 mls/hr HS [facility] Administration Lisinopril 5 mg 05/03/24 18:00 05/03/24 17:44 Lisinopril 5 Mg Tablet PO 5 mg QPM [facility] Administration Ondansetron HCl 4 mg 05/02/24 22:19 Ondansetron Inj 4 Mg/2 Ml Vial IV PUSH Q6H PRN Nausea And Vomiting Perflutren Lipid Microsphere 0 ml 05/03/24 00:07 Perflutren Lipid Microspheres 1.5 Ml Vial Diluted To 10 Ml Total Volume IV PUSH 05/06/24 00:07 ONCE PRN adequate visualization Protocol Triamterene/Hydrochlorothiazide 1 tab 05/03/24 18:00 05/03/24 17:44 Triamterene 37.5 Mg/Hctz 25 Mg (Maxzide) Tablet PO 1 tab QPM [facility] Administration Vitamin D 2,000 units 05/03/24 09:00 05/03/24 09:06 Cholecalciferol 1,000 Units Tablet PO 2,000 units DAILY [facility] Administration Radiology Results: ITS Impressions Chest X-Ray 05/02/24 17:40 IMPRESSION: Segmental left lower lobe consolidation concerning for pneumonia, overlying changes of mild edema. Subsegmental opacities in the right lung base may represent atelectasis or additional sites of consolidation. Small bilateral effusions. Labs Labs: Laboratory Results - last 24 hr 05/03/24 05/04/24 06:12 06:43 WBC 12.8 H RBC 3.93 L Hgb 10.4 L Hct 34.1 L MCV 86.8 MCH 26.5 MCHC 30.5 L RDW 14.9 H Plt Count 277 MPV 9.2 Immature Gran % (Auto) 0.6 H Neut % (Auto) 71.8 Lymph % (Auto) 14.5 L [place] % (Auto) 8.5 Eos % (Auto) 3.7 Baso % (Auto) 0.9 Lymph # (Auto) 1.86 [place] # (Auto) 1.1 H Eos # (Auto) 0.5 H Baso # (Auto) 0.1 Abs Immat Gran (auto) 0.08 H Absolute Neuts (auto) 9.2 H Absolute Nucleated RBC 0.000 Nucleated RBC % 0.0 Sodium 136 L 135 L Potassium 3.8 3.6 Chloride 103 102 Carbon Dioxide 23 25 Anion Gap 10 8 BUN 19 H 15 Creatinine 1.00 0.90 Estim Creat Clear Calc 46 51 Estimated GFR > 60 > 60 Glucose 108 101 Calcium 8.2 L 8.1 L Total Bilirubin 0.3 0.2 AST 73 H 67 H ALT 22 22 Alkaline Phosphatase 45 41 Troponin I < 0.012 Total Protein 7.0 7.0 Albumin 3.1 L 3.0 L Quality VTE Prophylaxis VTE prophylaxis: mechanical ordered and pharmacologic ordered Hospitalist [facility] Advance Care Plan I have confirmed that the patient's Advanced Care Plan is present, code status is documented, or surrogate decision maker is listed in patient medical record.: Yes Medication Reconciliation I have utilized all available resources to obtain, update and review the patients current medications (includes all prescriptions, OTC, herbals, cannabis, and nutritional supplements).: Yes
[2024-05-04] MEDS: CHOLECALCIFEROL 1,000 UNITS TABLET 2000 UNITS PO (08:34)
[2024-05-04] MEDS: ACETAMINOPHEN 325 MG TABLET 650 MG PO ×2 (08:36→16:09)
[2024-05-04] MEDS: lisinopriL 5 MG TABLET PO (17:22)
[2024-05-04] MEDS: TRIAMTERENE 37.5 MG/HCTZ 25 MG (MAXZIDE) TABLET 1 TAB PO (17:22)
[2024-05-04] MEDS: AZITHROMYCIN 500 MG/NS 250 ML 500 MG/250 ML BAG 250 MG IVPB (20:50)
[2024-05-05] VITALS (17 sets, daily range): BP systolic 123–129; BP diastolic 59–70; PULSE 87–106; RESP 14–20; TEMP 36.4–36.8; O2SAT 93–97
[2024-05-05] MEDS: IPRATROPIUM 0.5 MG/ALBUTEROL SULFATE 2.5 MG AMPUL.NEB 3 ML INHALATION ×4 (02:55→20:00)
[2024-05-05] MEDS: ACETAMINOPHEN 325 MG TABLET 650 MG PO ×3 (04:41→18:23)
[2024-05-05 05:53] LABS: Basophils Absolute Auto 0.1 K/mm3 (0.0-0.1); Basophils Percent Auto 0.7 % (0.2-1.2); Eosinophils Absolute Auto 0.6 K/mm3 (0-0.3); Eosinophils Percent Auto 4.9 % (0-4.4); Hematocrit 32.7 % (37.0-47.0); Hemoglobin 10.3 g/dL (12.0-15.0); Immature Granulocyte Absolute 0.09 K/mm3 (0.00-0.031); Immature Granulocyte Percent A 0.8 % (0-0.5); Lymphocytes Absolute Auto 1.44 K/mm3 (0.9-3.2); Lymphocytes Percent Auto 12.6 % (18.3-44.2); Mean Corpuscular HGB Conc 31.5 g/dl (32-36); Mean Corpuscular Hemoglobin 27.5 pg (26-34); Mean Corpuscular Volume 87.4 fl (80-100); Mean Platelet Volume 9.2 fl (7.4-10.4); Monocytes Absolute Auto 0.9 K/mm3 (0.1-0.6); Monocytes Percent Auto 8.1 % (2.6-8.5); Neutrophils Absolute Auto 8.3 K/mm3 (1.3-6.7); Neutrophils Percent Auto 72.9 % (45.5-73.1); Platelet Count Result 270 k/mm3 (150-375); Red Blood Count 3.74 M/mm3 (4.2-5.4); White Blood Count 11.4 K/mm3 (4.5-10.0)
[2024-05-05 06:11] LABS: Alanine Aminotransferase 22 U/L (6-35); Alkaline Phosphatase 55 U/L (38-126); Anion Gap 8 mmol/L (4-12); Aspartate Amino Transferase 65 U/L (14-36); Bilirubin,Total 0.1 mg/dL (0.2-1.3); Blood Urea Nitrogen 16 mg/dL (7-17); Calcium 8.3 mg/dL (8.4-10.2); Carbon Dioxide 25 mmol/L (22-30); Chloride 103 mmol/L (98-107); Estimated CRCL calculation 51 ml/min; Estimated Glomerular Filt Rate > 60; Glucose 107 mg/dL (65-110); Potassium 3.6 mmol/L (3.4-5.0); Sodium 136 mmol/L (137-145)
[2024-05-05] MEDS: ENOXAPARIN 40 MG/0.4 ML SYRINGE SUB-Q (08:03)
[2024-05-05] MEDS: CHOLECALCIFEROL 1,000 UNITS TABLET 2000 UNITS PO (08:03)
--- NOTE | 2024-05-05 11:26 | PM.IMPN ---
Progress Note: A&P Assessment and Plan (1) Acute respiratory failure with hypoxia: Code(s): J96.01 - Acute respiratory failure with hypoxia Status: Acute Assessment and Plan: Patient initially seen at the urgent care and was found to be hypoxic at 88% on room air and was placed on 2 L nasal cannula sent to the hospital for further evaluation. Patient was weaned to room air while in the ED. - likely secondary to pneumonia - chest x-ray: Segmental left lower lobe consolidation concerning for pneumonia, overlying changes of mild edema. Subsegmental opacities in the right lung base may represent atelectasis or additional sites of consolidation. Small bilateral effusions. - Rocephin and azithromycin started on 05/02 - respiratory panel was negative for influenza a and B, RSV, COVID - BNP 101 - Echo: LVEF > 70% and grade I diastolic dysfunction - continue DuoNebs 05/04: Patient has been placed back on supplemental oxygen. Per RN patient was dropping into the mid 80s with ambulation. She is now on 1L NC at rest. Will continue to wean as tolerated. If patient continues to require O2 supplementation a home O2 eval will need to be done prior to discharge. 05/05- home o2 eval- for possible discharge requires up to 5 l with ambulation. coarse and weak. will repeat chest xray and keep pt in hospital overnight- re evaluate tomorrow for dischargee (2) Community acquired pneumonia: Code(s): J18.9 - Pneumonia, unspecified organism Status: Acute Assessment and Plan: CXR: Segmental left lower lobe consolidation concerning for pneumonia, overlying changes of mild edema. Subsegmental opacities in the right lung base may represent atelectasis or additional sites of consolidation. Small bilateral effusions. - started on CAP tx: azithromycin ceftriaxone on 05/02 - Viral PCR: negative for Flu/COVID/RSV - initially requiring 2L NC w/ EMS, weaned to baseline RA in ED. Now require 1L NC with rest and 2 L NC with ambulation. Continue to wean as tolerated for a SpO2 > 90. - supportive treatment tyl and ibu prn nebs prn - Monitor vital signs, I&Os, neuro status and patient is a fall risk - Follow WBC, serum electrolytes, temperature curves and cultures 05/05- home o2 eval- for possible discharge requires up to 5 l with ambulation. coarse and weak. will repeat chest xray and keep pt in hospital overnight- re evaluate tomorrow for dischargee (3) Hypertension: Code(s): I10 - Essential (primary) hypertension Status: Acute Assessment and Plan: Chronic, continue home medications. - continue lisinopril and Triamterene/HCTZ Plan Diet: Regular diet DVT ppx: Lovenox Code: Full Disposition: Patient reports for SOB and new O2 requirement from an urgent care. Chest XR showing pneumonia. Was weaned back to baseline RA, however last night started having drops to mid 80s. Now on 1L at rest and 2 L with ambulation. She remains on rocephin and azithro. de escalated to oral antibiotics today Time Spent With Patient Time with patient: Greater than 35 minutes Subjective Date/time seen: 05/05/24 11:26 Interval history: 74-year-old female with a significant past medical history of hypertension who presents with shortness of breath/dyspnea and generalized weakness. Patient was initially seen at the urgent care for her shortness of breath and they placed her on 2 L nasal cannula because they found her at 88% on room air. Patient is pleasant sitting on the side of the bed. Per RN she had a drop in her saturation overnight with SpO2 in the mid 80s with ambulation. She was started on 2 L with ambulation and remains on 1 L NC at rest. Will continue to wean as tolerated. Patient states that her shortness of breath has been improving. She denies chest pain, nausea/vomiting and changes in bowel/bladder. She did endorse slight dizziness when initially standing to ambulate to her bathroom. Discussed with patient the importance of slow position changes as she has been more bed bound while in the hospital. PT/OT continues to follow. 05/05- home o2 eval- will require oxygen at home. She is somewhat better but still coarse and weak Review of Systems Review of Systems: All systems reviewed & are unremarkable except as noted in HPI and below Constitutional: Constitutional: Reports as per HPI and Reports no additional constitutional complaints Eyes: Eyes: Reports as per HPI and Reports no additional eye complaints ENT: Reports system reviewed and no additional complaints, except as documented and Reports as per HPI Cardiovascular: Cardiovascular: Reports as per HPI and Reports no additional cardiovascular complaints Respiratory: Respiratory: Reports as per HPI and Reports no additional respiratory complaints Gastrointestinal: Gastrointestinal: Reports as per HPI and Reports no additional gastrointestinal complaints Genitourinary: Genitourinary: Reports no additional female genitourinary complaints and Reports as per HPI Musculoskeletal: Musculoskeletal: Reports no additional musculoskeletal complaints and Reports as per HPI Integumentary/Breasts: Skin/Breast: Reports system reviewed and no additional complaints, except as docu and Reports as per HPI Neurologic: Reports system reviewed and no additional complaints, except as documented and Reports as per HPI Psychiatric: Psychiatric: Reports no additional psychiatric complaints and Reports as per HPI Exam Narrative: AF HR 86 RR 18 SpO2 96 1L NC BP 112/45 General: female in no acute respiratory distress who is nontoxic appearing, lying semi recumbent in bed. HEENT: Normocephalic. Atraumatic. Extraocular movement intact. Sclera clear and anicteric. No facial asymmetry. Chest: Lungs with crackles to lower bases on auscultation bilaterally. No wheezes. [address] CV: Heart was regular rate and rhythm. S1-S2. No murmurs, gallops, or rubs. Abd: Abdomen was soft. Nontender. Nondistended. Positive bowel sounds. No organomegaly or masses. Neuro: Speech is clear. Objective Data Vital Signs Vital Signs: Vital Signs - 24 hr 05/04/24 12:05 05/04/24 13:53 05/04/24 14:11 Temperature Pulse Rate 90 89 Respiratory Rate 20 Blood Pressure Pulse Oximetry Oxygen Delivery Nasal Cannula Oxygen Flow Rate 1 Fraction of Inspired Oxygen 05/04/24 14:00 05/04/24 14:22 05/04/24 16:05 Temperature 98.0 F Pulse Rate 85 90 95 Respiratory Rate 18 20 Blood Pressure 119/64 Pulse Oximetry 91 Oxygen Delivery Oxygen Flow Rate Fraction of Inspired Oxygen 05/04/24 21:14 05/04/24 21:23 05/04/24 21:24 Temperature 97.3 F L Pulse Rate 97 83 Respiratory Rate 20 20 Blood Pressure 133/66 Pulse Oximetry 98 97 Oxygen Delivery Nasal Cannula Oxygen Flow Rate 2 Fraction of Inspired Oxygen 05/04/24 20:00 05/05/24 02:57 05/04/24 21:33 Temperature Pulse Rate 96 87 Respiratory Rate 18 20 Blood Pressure Pulse Oximetry 93 Oxygen Delivery Nasal Cannula Oxygen Flow Rate 1 Fraction of Inspired Oxygen 05/05/24 04:40 05/05/24 00:00 05/05/24 04:00 Temperature 98.3 F Pulse Rate 106 H 105 H 97 Respiratory Rate 20 Blood Pressure 126/63 Pulse Oximetry 93 Oxygen Delivery Oxygen Flow Rate Fraction of Inspired Oxygen 05/05/24 07:36 05/05/24 07:36 05/05/24 07:43 Temperature Pulse Rate 88 92 Respiratory Rate 16 16 Blood Pressure Pulse Oximetry 95 Oxygen Delivery Nasal Cannula Oxygen Flow Rate 2 Fraction of Inspired Oxygen 05/05/24 08:05 05/05/24 08:04 Temperature Pulse Rate 94 Respiratory Rate Blood Pressure Pulse Oximetry 95 Oxygen Delivery Nasal Cannula Oxygen Flow Rate 2 Fraction of Inspired Oxygen Intake/Output Intake/Output: Intake & Output 05/02/24 05/03/24 05/04/24 05/05/24 23:59 23:59 23:59 23:59 Intake Total 1000 1295 1570 930 Output Total 250 Balance 1000 1045 1570 930 Meds/Results Medications: Active Medications Generic Name Dose Route Start Last Admin Trade Name Freq PRN Reason Stop Dose Admin Acetaminophen 650 mg 05/02/24 22:19 05/05/24 04:41 Acetaminophen 325 Mg Tablet PO 650 mg Q4H PRN Administration Mild Pain (1-3) or Fever Albuterol/Ipratropium 3 ml 05/03/24 02:00 05/05/24 07:36 Ipratropium 0.5 Mg/Albuterol Sulfate 2.5 Mg Ampul.Neb 3 Ml INHALATION 3 ml Q6HRT RANDALL Administration Enoxaparin Sodium 40 mg 05/03/24 09:00 05/05/24 08:03 Enoxaparin 40 Mg/0.4 Ml Syringe SUB-Q 40 mg DAILY RANDALL Administration Ceftriaxone Sodium 1 gm in 50 mls @ 100 mls/hr 05/03/24 21:00 05/04/24 20:50 Rocephin 1 Gm/Ns 50 Ml IVPB 100 mls/hr HS RANDALL Administration Azithromycin 500 mg in 250 mls @ 250 mls/hr 05/03/24 21:00 05/04/24 20:50 Zithromax IVPB 250 mls/hr HS RANDALL Administration Lisinopril 5 mg 05/03/24 18:00 05/04/24 17:22 Lisinopril 5 Mg Tablet PO 5 mg QPM RANDALL Administration Ondansetron HCl 4 mg 05/02/24 22:19 Ondansetron Inj 4 Mg/2 Ml Vial IV PUSH Q6H PRN Nausea And Vomiting Perflutren Lipid Microsphere 0 ml 05/03/24 00:07 Perflutren Lipid Microspheres 1.5 Ml Vial Diluted To 10 Ml Total Volume IV PUSH 05/06/24 00:07 ONCE PRN adequate visualization Protocol Triamterene/Hydrochlorothiazide 1 tab 05/03/24 18:00 05/04/24 17:22 Triamterene 37.5 Mg/Hctz 25 Mg (Maxzide) Tablet PO 1 tab QPM RANDALL Administration Vitamin D 2,000 units 05/03/24 09:00 05/05/24 08:03 Cholecalciferol 1,000 Units Tablet PO 2,000 units DAILY RANDALL Administration Radiology Results: ITS Impressions Chest X-Ray 05/02/24 17:40 IMPRESSION: Segmental left lower lobe consolidation concerning for pneumonia, overlying changes of mild edema. Subsegmental opacities in the right lung base may represent atelectasis or additional sites of consolidation. Small bilateral effusions. Labs Labs: Laboratory Results - last 24 hr 05/05/24 05:39 WBC 11.4 H RBC 3.74 L Hgb 10.3 L Hct 32.7 L MCV 87.4 MCH 27.5 MCHC 31.5 L RDW 15.0 H Plt Count 270 MPV 9.2 Immature Gran % (Auto) 0.8 H Neut % (Auto) 72.9 Lymph % (Auto) 12.6 L [place] % (Auto) 8.1 Eos % (Auto) 4.9 H Baso % (Auto) 0.7 Lymph # (Auto) 1.44 [place] # (Auto) 0.9 H Eos # (Auto) 0.6 H Baso # (Auto) 0.1 Abs Immat Gran (auto) 0.09 H Absolute Neuts (auto) 8.3 H Absolute Nucleated RBC 0.000 Nucleated RBC % 0.0 Sodium 136 L Potassium 3.6 Chloride 103 Carbon Dioxide 25 Anion Gap 8 BUN 16 Creatinine 0.90 Estim Creat Clear Calc 51 Estimated GFR > 60 Glucose 107 Calcium 8.3 L Total Bilirubin 0.1 L AST 65 H ALT 22 Alkaline Phosphatase 55 Total Protein 7.0 Albumin 3.0 L Quality VTE Prophylaxis VTE prophylaxis: mechanical ordered and pharmacologic ordered
[2024-05-05] MEDS: AZITHROMYCIN 250 MG TABLET 500 MG PO (14:07)
[2024-05-05] MEDS: TRIAMTERENE 37.5 MG/HCTZ 25 MG (MAXZIDE) TABLET 1 TAB PO (17:18)
[2024-05-05] MEDS: lisinopriL 5 MG TABLET PO (17:18)
[2024-05-05] MEDS: AMOXICILLIN/CLAVULANATE K 875-125 MG TAB 1 TABLET PO (20:06)
[2024-05-06] VITALS (15 sets, daily range): BP systolic 121–122; BP diastolic 64; PULSE 83–108; RESP 14–18; TEMP 36.8–37.1; O2SAT 86–94
[2024-05-06] MEDS: IPRATROPIUM 0.5 MG/ALBUTEROL SULFATE 2.5 MG AMPUL.NEB 3 ML INHALATION ×3 (02:02→14:00)
[2024-05-06] MEDS: ACETAMINOPHEN 325 MG TABLET 650 MG PO (04:26)
[2024-05-06 05:34] LABS: Glucose Point of Care 116 mg/dl (65-105)
[2024-05-06 05:54] LABS: Basophils Absolute Auto 0.1 K/mm3 (0.0-0.1); Basophils Percent Auto 0.6 % (0.2-1.2); Eosinophils Absolute Auto 0.5 K/mm3 (0-0.3); Hematocrit 34.3 % (37.0-47.0); Hemoglobin 10.7 g/dL (12.0-15.0); Immature Granulocyte Absolute 0.06 K/mm3 (0.00-0.031); Immature Granulocyte Percent A 0.6 % (0-0.5); Lymphocytes Absolute Auto 1.44 K/mm3 (0.9-3.2); Lymphocytes Percent Auto 13.3 % (18.3-44.2); Mean Corpuscular HGB Conc 31.2 g/dl (32-36); Mean Corpuscular Hemoglobin 27.2 pg (26-34); Mean Corpuscular Volume 87.1 fl (80-100); Mean Platelet Volume 9.2 fl (7.4-10.4); Monocytes Absolute Auto 0.7 K/mm3 (0.1-0.6); Monocytes Percent Auto 6.6 % (2.6-8.5); Neutrophils Percent Auto 73.9 % (45.5-73.1); Platelet Count Result 287 k/mm3 (150-375); Red Blood Count 3.94 M/mm3 (4.2-5.4); White Blood Count 10.8 K/mm3 (4.5-10.0)
[2024-05-06 06:15] LABS: Alanine Aminotransferase 22 U/L (6-35); Albumin Level 3.1 g/dL (3.5-5.1); Alkaline Phosphatase 63 U/L (38-126); Anion Gap 7 mmol/L (4-12); Aspartate Amino Transferase 67 U/L (14-36); Bilirubin,Total 0.2 mg/dL (0.2-1.3); Blood Urea Nitrogen 16 mg/dL (7-17); Calcium 8.6 mg/dL (8.4-10.2); Carbon Dioxide 26 mmol/L (22-30); Chloride 102 mmol/L (98-107); Estimated CRCL calculation 56 ml/min; Estimated Glomerular Filt Rate > 60; Glucose 99 mg/dL (65-110); Potassium 3.7 mmol/L (3.4-5.0); Sodium 135 mmol/L (137-145)
[2024-05-06] MEDS: CHOLECALCIFEROL 1,000 UNITS TABLET 2000 UNITS PO (08:28)
[2024-05-06] MEDS: AMOXICILLIN/CLAVULANATE K 875-125 MG TAB 1 TABLET PO (08:28)
[2024-05-06] MEDS: AZITHROMYCIN 250 MG TABLET 500 MG PO (08:29)
--- NOTE | 2024-05-06 13:56 | P.DS_ITS ---
DS: Admitting Diagnosis Discharge Date 05/06 Admitting Diagnosis sob DS: Discharge Diagnosis Discharge Diagnosis (1) Acute respiratory failure with hypoxia: Code(s): J96.01 - Acute respiratory failure with hypoxia Status: Acute Assessment and Plan: Patient initially seen at the urgent care and was found to be hypoxic at 88% on room air and was placed on 2 L nasal cannula sent to the hospital for further evaluation. Patient was weaned to room air while in the ED. - likely secondary to pneumonia - chest x-ray: Segmental left lower lobe consolidation concerning for pneumonia, overlying changes of mild edema. Subsegmental opacities in the right lung base may represent atelectasis or additional sites of consolidation. Small bilateral effusions. - Rocephin and azithromycin started on 05/02 - respiratory panel was negative for influenza a and B, RSV, COVID - BNP 101 - Echo: LVEF > 70% and grade I diastolic dysfunction - continue DuoNebs 05/04: Patient has been placed back on supplemental oxygen. Per RN patient was dropping into the mid 80s with ambulation. She is now on 1L NC at rest. Will continue to wean as tolerated. If patient continues to require O2 supplementation a home O2 eval will need to be done prior to discharge. 05/05- home o2 eval- for possible discharge requires up to 5 l with ambulation. coarse and weak. will repeat chest xray and keep pt in hospital overnight- re evaluate tomorrow for dischargee (2) Community acquired pneumonia: Code(s): J18.9 - Pneumonia, unspecified organism Status: Acute Assessment and Plan: CXR: Segmental left lower lobe consolidation concerning for pneumonia, overlying changes of mild edema. Subsegmental opacities in the right lung base may represent atelectasis or additional sites of consolidation. Small bilateral effusions. - started on CAP tx: azithromycin ceftriaxone on 05/02 - Viral PCR: negative for Flu/COVID/RSV - initially requiring 2L NC w/ EMS, weaned to baseline RA in ED. Now require 1L NC with rest and 2 L NC with ambulation. Continue to wean as tolerated for a SpO2 > 90. - supportive treatment tyl and ibu prn nebs prn - Monitor vital signs, I&Os, neuro status and patient is a fall risk - Follow WBC, serum electrolytes, temperature curves and cultures 05/05- home o2 eval- for possible discharge requires up to 5 l with ambulation. coarse and weak. will repeat chest xray and keep pt in hospital overnight- re evaluate tomorrow for dischargee 05/06-improved- ra at rest, 2-3 l with eversion (3) Hypertension: Code(s): I10 - Essential (primary) hypertension Status: Acute Assessment and Plan: Chronic, continue home medications. - continue lisinopril and Triamterene/HCTZ Plan Diet: Regular diet DVT ppx: Lovenox Code: Full Disposition: Patient reports for SOB and new O2 requirement from an urgent care. Chest XR showing pneumonia. Was weaned back to baseline RA, however last night started having drops to mid 80s. Now on 1L at rest and 2 L with ambulation. She remains on rocephin and azithro. de escalated to oral antibiotics today DS: Summary Hospital Course Hospital Course: Interval history: 74-year-old female with a significant past medical history of hypertension who presents with shortness of breath/dyspnea and generalized weakness. Patient was initially seen at the urgent care for her shortness of breath and they placed her on 2 L nasal cannula because they found her at 88% on room air. Patient is pleasant sitting on the side of the bed. Per RN she had a drop in her saturation overnight with SpO2 in the mid 80s with ambulation. She was started on 2 L with ambulation and remains on 1 L NC at rest. Will continue to wean as tolerated. Patient states that her shortness of breath has been improving. She denies chest pain, nausea/vomiting and changes in bowel/bladder. She did endorse slight dizziness when initially standing to ambulate to her bathroom. Discussed with patient the importance of slow position changes as she has been more bed bound while in the hospital. PT/OT continues to follow. 05/05- home o2 eval- will require oxygen at home. She is somewhat better but still coarse and weak 05/06- redid home o2- ra during rest and 3l with activity today- improvement from yesterday. will discharge home Status at Discharge Functional status at discharge: independent ambulation Overall status at discharge: patient is progressing back to baseline Time Spent with Patient Time attestation: Total time spent providing and/or coordinating discharge services: Time spent: Greater than 30 minutes Exam Narrative: General: female in no acute respiratory distress who is nontoxic appearing, lying semi recumbent in bed. HEENT: Normocephalic. Atraumatic. Extraocular movement intact. Sclera clear and anicteric. No facial asymmetry. Chest: Lungs with crackles to lower bases on auscultation bilaterally. No wheezes. [address] CV: Heart was regular rate and rhythm. S1-S2. No murmurs, gallops, or rubs. Abd: Abdomen was soft. Nontender. Nondistended. Positive bowel sounds. No organomegaly or masses. Neuro: Speech is clear. Const: General: comfortable Resp: Effort & Inspection: normal respiratory effort DS: Data Data Completed and Pending Completed studies during hospitalization: chest xray Labs on day of discharge: Labs from last 24 hours 05/06/24 05/05/24 05:40 20:42 WBC 10.8 H RBC 3.94 L Hgb 10.7 L Hct 34.3 L MCV 87.1 MCH 27.2 MCHC 31.2 L RDW 15.0 H Plt Count 287 MPV 9.2 Immature Gran % (Auto) 0.6 H Neut % (Auto) 73.9 H Lymph % (Auto) 13.3 L Richardson % (Auto) 6.6 Eos % (Auto) 5.0 H Baso % (Auto) 0.6 Lymph # (Auto) 1.44 [place] # (Auto) 0.7 H Eos # (Auto) 0.5 H Baso # (Auto) 0.1 Abs Immat Gran (auto) 0.06 H Absolute Neuts (auto) 8.0 H Absolute Nucleated RBC 0.000 Nucleated RBC % 0.0 Sodium 135 L Potassium 3.7 Chloride 102 Carbon Dioxide 26 Anion Gap 7 BUN 16 Creatinine 0.80 Estim Creat Clear Calc 56 Estimated GFR > 60 Glucose 99 POC Capillary Glucose 116 H Calcium 8.6 Total Bilirubin 0.2 AST 67 H ALT 22 Alkaline Phosphatase 63 Total Protein 7.0 Albumin 3.1 L Preliminary micro results at discharge 05/03/24 06:12 Blood Culture - Preliminary Blood 05/02/24 21:52 Blood Culture - Preliminary Blood Discharge Plan Discharge Discharging Clinician: Socorro Curiel Patient Disposition: Home, Self-Care Activity: may shower Diet: as tolerated and heart healthy Discharge Instructions: please finish your antibiotics- i am sending you last dose of azithromycin and you ill need 6 more doses of Augmentin. Take probiotics over the counter to avoid diarrhea (side effect from taking antibiotics). Please follow up with your PCP. Watch for worsening in respiratory status- worse shortness of breath, increase work of breathing, increased sputum productions, chest pain- if any of these happens- report to ER Patient Instructions: Antibiotic Form, Pain Management (DC) Stand Alone Forms: General Discharge Information Follow-up/Referrals: Vilma,Madhavi Otero MD [Primary Care Provider] - 2 Weeks Discharge Medications: New azithromycin [Zithromax] 500 mg tablet 500 mg PO DAILY 14 Days Qty: 1 0RF amoxicillin-pot clavulanate 875-125 mg tablet 1 tablet PO Q12H Qty: 6 0RF Continued triamterene-hydrochlorothiazid 37.5-25 mg tablet 1 tablet PO DAILY Rx Instructions: administer in evening lisinopril 5 mg tablet 5 mg PO DAILY Rx Instructions: administer in evening cholecalciferol (vitamin D3) 50 mcg (2,000 unit) Tablet 50 mcg PO DAILY Date of admission: 05/04/24 09:54 Primary Care Provider: BeliaMadhavi Admitting Provider: Bereket Westfall Attending physician on admission: Gem Reyna Condition: Stable Quality VTE Prophylaxis VTE prophylaxis: mechanical ordered and pharmacologic ordered
--- NOTE | 2024-05-06 14:05 | HOMEO2EVAL ---
Evaluation was performed at [facility] Home Oxygen Evaluation RC: Home Oxygen (O2) Evaluation Start: 05/05/24 11:18 Freq: ONCE Status: Active Protocol: RPE Activity Type Activity Date Activity User E-sign Co-sign Detail Recorded Client Recorded Date Recorded By Document 05/06/24 13:00 [email or web address] [email or web address] 05/06/24 14:05 DJO Document 05/06/24 13:05 [email or web address] [email or web address] 05/06/24 14:05 DJO Document 05/06/24 13:10 [email or web address] [email or web address] 05/06/24 14:05 DJO Document 05/06/24 13:15 [email or web address] [email or web address] 05/06/24 14:05 DJO Document 05/06/24 13:20 [email or web address] [email or web address] 05/06/24 14:05 DJO Document 05/06/24 13:40 [email or web address] [email or web address] 05/06/24 14:05 DJO 05/06/24 05/06/24 05/06/24 13:00 13:05 13:10 Home O2 Evaluation [Oxygen] -Test Phase Resting Exercise Exercise -Oxygen Delivery Room Air Room Air Nasal Cannula -Oxygen Flow Rate (L/min) 1 [Pulse Oximetry] -Pulse Oximetry (90-100 %) 90 86 L 87 L [Pulse Rate] -Pulse Rate (60-100 beats/min) 86 107 H 107 H [Evaluation] -Activity Tolerance 05/06/24 05/06/24 05/06/24 13:15 13:20 13:40 Home O2 Evaluation [Oxygen] -Test Phase Exercise Exercise Resting -Oxygen Delivery Nasal Cannula Nasal Cannula Room Air -Oxygen Flow Rate (L/min) 2 3 [Pulse Oximetry] -Pulse Oximetry (90-100 %) 88 L 91 90 [Pulse Rate] -Pulse Rate (60-100 beats/min) 108 H 108 H 88 [Evaluation] -Activity Tolerance Good
== END 2024-05-06 15:45 | disposition home or self-care (01) | DRG 195 ==
LOC: ANHED 18:31 → ANH3MEDSUR 19:41 → ANH3MED 21:47
PROVIDERS: Nurse Practitioner Acute Care; Student in an Organized Health Care Education/Training Program; Admitting Provider Internal Medicine; Emergency Provider Emergency Medicine; PCP Family Medicine Sports Medicine; Visit Provider Nurse Practitioner
DX: J18.9 Pneumonia, unspecified organism (principal); I10 Essential (primary) hypertension; Z20.822 Contact with and (suspected) exposure to COVID-19
CPT/HCPCS: 36415; 71046; 80053; 81001; 82948; 83880; 84484; 85025; 85610; 85730; 87040; 87086; 87637; 93005; 93306; 94640; 96361; 96365; 96368; 96372; 96375; 96376; 97161; 97165; 99285; A9270; G0378; J0456; J0696; J1650; J7030

== ENCOUNTER 2024-09-12 13:13 | Inpatient (IN) | payer MEDICARE, SELFPAY ==
[2024-09-12] VITALS (50 sets, daily range): BP systolic 85–125; BP diastolic 24–85; PULSE 96–114; RESP 19–33; TEMP 36.2–37.4; O2SAT 91–100; BMI 24.7
--- NOTE | ~2024-09-12 | XR_ITS ---
XR chest 1V portable 09/13/2024 07:53 Indication: Bilateral pneumonia Procedure: AP portable chest Comparison: 09/12/2024 Findings: Cardiomegaly with pulmonary edema which has progressed. Central line tip near the cavoatria l junction. Possible small effusion. No pneumothorax. Impression: 1: Interval progression of pulmonary edema. 2: Possible small effusions. 3: Cardiomegaly. Reviewed, dictated and finalized at location B. N HULLER Impression: 1: Interval progression of pulmonary edema. 2: Possible small effusions. 3: Cardiomegaly.
--- NOTE | ~2024-09-12 | CT_ITS ---
CT brain wo con Ordering provider: Gurjit Cope MD History: 74 years Female with . encephalopathy . Comparison: None. Technique: CT of the head without contrast. Radiation reduction technique utilized. The dose-length product was 605.33 mGy-cm. FINDINGS: BRAIN PARENCHYMA AND CSF SPACES: Hypodensity in the left side of the lon. MRI evaluation advised. No midline shift, mass effect or hemorrhage. The brain parenchyma and CSF spaces are otherwise normal. VISUALIZED PARANASAL SINUSES: Right maxillary sinus disease. MASTOIDS: Well aerated. BONES: The bones appear intact. SOFT TISSUES: Visualized nasopharynx is normal. Superficial soft tissues are normal. IMPRESSION: Hypodensity in the left side of the lon. MRI evaluation advised. Otherwise, No acute intracranial fi ndings. Reviewed, dictated and finalized at location A. NCIAL DATA ANALYST IMPRESSION: Hypodensity in the left side of the lon. MRI evaluation advised. Otherwise, No acute intracranial findings.
--- NOTE | ~2024-09-12 | US_ITS ---
Renal-Bladder ultrasound Clinical History: Acute renal insufficiency Technique: Real-time sonographic imaging of the kidneys and urinary bladder was performed. Findings: The right kidney measures 12.6 cm in length and the left kidney measures 9.2 cm. There is n o hydronephrosis or renal calculus identified. Renal cortical echogenicity is within normal limits. N o renal mass lesion is identified. The urinary bladder is collapsed around a Robertson catheter. Impression: Unremarkable ultrasound of the kidneys. Limited evaluation of urinary bladder due to Robertson catheter.. Reviewed, dictated and finalized at location M. ICULTURE TEACHER Impression: Unremarkable ultrasound of the kidneys. Limited evaluation of urinary bladder d ue to Robertson catheter..
--- NOTE | ~2024-09-12 | CT_ITS ---
CLINICAL INDICATION: GI hemorrhage, sepsis COMPARISON: None. TECHNIQUE: Multiple contiguous axial images of the abdomen and pelvis were performed following the ad ministration of with 100 mL Omnipaque-350 intravenous contrast The dose-length product (DLP) was 565.84 mGy-cm. Automated exposure control and iterative reconstruction technique were employed. FINDINGS/OBSERVATIONS: Visualized lower thorax: Moderate bilateral pleural effusions with adjacent consolidation. The heart is enlarged, without pericardial effusion. Small hiatal hernia is present. Liver: The liver enhances homogeneously and is not enlarged measuring 14 cm in longitudinal dimension. Gallbladder and biliary system: The gallbladder is distended, and otherwise unremarkable. Pancreas: The pancreas demonstrates ductal dilatation, and is heterogeneous in enhancement for which a primary mass in the pancreatic head is suspected (measuring 14 x 12 mm). Spleen: The spleen enhances homogeneously and is not enlarged measuring 8 cm in longitudinal dimension. Kidneys: 15mm well circumscribed focus of fluid attenuation is identified within the upper pole of the left ki dney, statistically a cyst. The remainder of the bilateral kidneys enhance symmetrically without hydronephrosis or renal calculi. Adrenal glands: Unremarkable. Gastrointestinal tract: Colonic diverticulosis without surrounding inflammatory change. Appendix: The air-filled appendix is of normal caliber (axial series, images 117-127). Vasculature: Unremarkable. No aneurysmal dilatation or significant stenosis. Lymph nodes: No pathologically enlarged or morphologically suspicious lymph nodes within the retroperitoneum or at the root of the mesentery. Pelvic structures: The bladder is only minimally distended, and otherwise unremarkable. The uterus is either surgically absent or markedly atrophic . Body wall and musculoskeletal: Trace degenerative disease within the lumbosacral spine, with osteophyte formation, disc space narrow ing, endplate changes and vacuum phenomena. IMPRESSION: Moderate bilateral pleural effusions with bibasilar infiltrates. Heterogeneous enhancement of the pancreas with ductal dilatation for which a malignancy is suspected. Examination was performed as a CT abdomen and pelvis with contrast rather than CTA of the abdomen and pelvis limiting the detection for an active GI hemorrhage. Reviewed, dictated and finalized at location A. CE MOVER IMPRESSION: Moderate bilateral pleural effusions with bibasilar infiltrates. Heterogeneous enhancement of the pancreas with ductal dilatation for which a ma lignancy is suspected. Examination was performed as a CT abdomen and pelvis with contrast rather than CTA of the abdomen and pelvis limiting the detection for an active GI hemorrhag e.
--- NOTE | ~2024-09-12 | XR_ITS ---
CHEST RADIOGRAPH CLINICAL HISTORY: DONALDO . COMPARISON: 05/05/2024 TECHNIQUE: Single portable view of the chest. FINDINGS The cardiomediastinal silhouette is partially obscured. There bronchograms and dense opacification detected within the left upper and to a lesser extent the left lower lobes. The right hemithorax appears clear. IMPRESSION: Left upper and left lower lobe infiltrates, as detailed above. Reviewed, dictated and finalized at location A. OR VISUAL DESIGNER
--- NOTE | ~2024-09-12 | XR_ITS ---
Portable chest x-ray Comparison: 09/13/2024 Clinical History: Pneumonia Findings: There is left basilar and left perihilar hazy airspace consolidation. Possible minimal haz iness right lung base. Stable left-sided central venous line. Cardiomediastinal silhouette is stable . Bones and soft tissues are unremarkable. Impression: Hazy bibasilar airspace disease, left worse than right. Correlate for asymmetric pulmonary edema vers us bilateral pneumonia. Stable support line. Reviewed, dictated and finalized at location . ASSISTANT Impression: Hazy bibasilar airspace disease, left worse than right. Correlate for asymmetri c pulmonary edema versus bilateral pneumonia. Stable support line.
--- NOTE | ~2024-09-12 | US_ITS ---
BILATERAL LOWER EXTREMITY VENOUS ULTRASOUND Ordering provider: Brie Curiel APRN History: . shortness of breath, rule out DVT . Comparison: None FINDINGS: RIGHT LOWER EXTREMITY VEINS: --COMMON FEMORAL: Patent and free of thrombus. Normal compressibility, phasic flow and augmentation. --PROXIMAL SUPERFICIAL FEMORAL: Patent and free of thrombus. Normal compressibility, phasic flow and augmentation. --DISTAL SUPERFICIAL FEMORAL: Patent and free of thrombus. Normal compressibility, phasic flow and au gmentation. --POPLITEAL: Patent and free of thrombus. Normal compressibility, phasic flow and augmentation. --POSTERIOR TIBIAL: Patent and free of thrombus. Normal compressibility, phasic flow and augmentation . LEFT LOWER EXTREMITY VEINS: --COMMON FEMORAL: Patent and free of thrombus. Normal compressibility, phasic flow and augmentation. --PROXIMAL SUPERFICIAL FEMORAL: Patent and free of thrombus. Normal compressibility, phasic flow and augmentation. --DISTAL SUPERFICIAL FEMORAL: Patent and free of thrombus. Normal compressibility, phasic flow and au gmentation. --POPLITEAL: Patent and free of thrombus. Normal compressibility, phasic flow and augmentation. --POSTERIOR TIBIAL: Patent and free of thrombus. Normal compressibility, phasic flow and augmentation . IMPRESSION: Negative bilateral lower extremity venous US. No deep vein thrombosis. Reviewed, dictated and finalized at location A. NER SPRAYER
--- NOTE | ~2024-09-12 | XR_ITS ---
CHEST RADIOGRAPH CLINICAL HISTORY: central line placement . COMPARISON: 09/12/2024 approximately 2 hours earlier TECHNIQUE: Single portable view of the chest. FINDINGS Interval placement of a left subclavian central venous catheter with its tip projecting over the righ t atrium. The remainder of the cardiomediastinal silhouette is otherwise unremarkable. Redemonstration of multifocal infiltrates, unchanged from prior (although improved positioning). The left lung is fully inflated. IMPRESSION: Left subclavian central venous catheter in good position and ready for immediate use. Reviewed, dictated and finalized at location A. ARCHITECT IMPRESSION: Left subclavian central venous catheter in good position and ready for immediat e use.
--- NOTE | ~2024-09-12 | US_ITS ---
Limited ABDOMINAL ULTRASOUND (Doppler ultrasound interrogation techniques used as needed for this exa m.) Ordering provider: Gurjit Cope MD History: . Hyperbilirubinemia . Comparison: None. FINDINGS: PANCREAS: Normal echotexture and size. Pancreatic duct measures 4 mm. PORTAL VEIN: Hepatopedal flow demonstrated. LIVER: Normal size and echotexture. The liver measures 15.4 cm. No focal hepatic lesions or perihepat ic fluid collections are identified. BILIARY DUCTS: No intra or extrahepatic biliary dilation. Common bile duct measures 2.8 mm in diamete r which is normal for patient's age. GALLBLADDER: Internal echoes are noted suggestive of sludge. Pus is less likely although cannot be e xcluded. No stones. Gallbladder wall thickening is noted with an edema and the wall measuring 6 mm. M inimal pericholecystic fluid is seen.. Negative sonographic Mccauley's sign. FREE FLUID: None visualized within the upper abdomen. IMPRESSION: Internal echoes in the gallbladder with wall edema and pericholecystic fluid which raises the possibi lity of cholecystitis. Clinical correlation advised. Otherwise, normal right upper quadrant ultrasoun d. Reviewed, dictated and finalized at location A. OGRAPHY TECHNICIAN IMPRESSION: Internal echoes in the gallbladder with wall edema and pericholecystic fluid wh ich raises the possibility of cholecystitis. Clinical correlation advised. Othe rwise, normal right upper quadrant ultrasound.
--- NOTE | 2024-09-12 13:19 | ECG_ITS ---
Test Date: 2024-09-12 13:22:23 Measurements Intervals [place] Rate: 110 P: 52 MI: 141 QRS: -9 QRSD: 93 T: 205 QT: 366 QTc: 495 Interpretive Statements SINUS TACHYCARDIA WITH FREQUENT SUPRAVENTRICULAR PREMATURE COMPLEXES VOLTAGE CRITERIA FOR LVH [MEETS CRITERIA IN ONE OF: R(aVL), S(V1), R(V5), R(V5/V6)+S(V1)] NONSPECIFIC T-WAVE ABNORMALITY Compared to ECG 05/02/2024 18:10:30 Left ventricular hypertrophy now present T-wave abnormality now present Electronically Signed On 09-15-2024 16:45:46 [employer] by Tim Smith M.D.
--- NOTE | 2024-09-12 13:23 | ED_ITS ---
HPI - Weakness General Chief complaint: Weakness Stated complaint: weakness Time Seen by Provider: 09/12/24 13:13 History of Present Illness HPI Narrative: 74-year-old female with a past medical history including hypertension and recent pneumonia. Patient presents to the emergency department in respiratory distress via EMS from home. Patient was recently treated with pneumonia and completed a course of antibiotics 2 days prior. She was also recently seen late last year for pneumonia and hospitalized. Reportedly she has no chronic medical conditions such as COPD or asthma or heart failure. Her last echocardiogram showed an EF about 70% with grade 1 diastolic dysfunction. Patient herself is awake alert but is in respiratory distress with tachypnea in the 40s, hypoxia 82% even on oxygen supplementation via EMS requiring non-rebreather for improvement to 95%. She is tachycardic with a pulse of 110, blood pressure soft in the 100s systolic. She was made a medical resuscitation and brought into Room H3 for further evaluation and treatment. Patient states she feels generally weak and short of breath but denies any chest pain, headache, vision changes, back pain, abdominal pain. She is diaphoretic and expressing chills. Related Data Home Medications ?Medication ?Instructions ?Recorded ?Confirmed ?Last Taken ?Type cholecalciferol (vitamin D3) 50 50 mcg PO DAILY 05/02/24 05/02/24 Unknown History mcg (2,000 unit) tablet lisinopril 5 mg tablet 5 mg PO DAILY 05/02/24 05/02/24 Unknown History triamterene 37.5 1 tablet PO DAILY 05/02/24 05/02/24 Unknown History mg-hydrochlorothiazide 25 mg tablet Allergies Allergy/AdvReac Type Severity Reaction Status Date / Time No Known Allergies Allergy Verified 05/02/24 14:08 Review of Systems 2 Review of Systems: As reviewed above in HPI [facility] Past Medical History Medical History Hypertension Family History Family History Sibling Acute myocardial infarction Other Dementia Social History Social History Smoking status: Never smoker Alcohol intake: never Substance use: never Substance use type: does not use Do You Feel Safe in your Home?: Yes Lack of Transportation: No Lack of Food: Never True Current Housing: I Have Housing Concerned About Future Housing: No Difficulty Paying Gas/Electric Bills: No Difficulty Paying for Meds: No Currently Unemployed: No Education: High School Diploma/GED Difficulty w/ Childcare or Family Care: No Spiritual care concerns: No Exam 2 Narrative: GENERAL: Respiratory distress, diaphoretic and ill-appearing HEAD: [Normocephalic, atraumatic.] EYES: [PERRLA and EOMI.] ENT: Nasal flaring, dry mucous membranes NECK: Supple. CHEST: Coarse breath sounds bilaterally in the bases, respiratory distress with tachypnea, tracheal tugging and retractions HEART: Tachycardic rate, regular rhythm. No murmur heard. [Normal peripheral pulses.] ABDOMEN: [Soft, nondistended], [nontender], [No rigidity or guarding] EXTREMITIES: Normal range of motion. [No edema.] SKIN: Warm, dry, no rash. NEURO: [No focal deficits]. Alert and oriented [x3.] PSYCH: [Normal mood and affect.] Course Vital Signs Vital signs: Vital Signs Temperature 36.4 C 09/12/24 13:14 Pulse Rate 105 H 09/12/24 13:14 Respiratory Rate 27 H 09/12/24 13:14 Blood Pressure 125/74 09/12/24 13:14 Pulse Oximetry 100 09/12/24 13:14 Oxygen Delivery Non-Rebreather Mask 09/12/24 13:14 Oxygen Flow Rate 15 09/12/24 13:14 Temperature 36.2 C L 09/12/24 16:46 Pulse Rate 108 H 09/12/24 16:46 Respiratory Rate 22 H 09/12/24 16:46 Blood Pressure 105/67 09/12/24 16:46 Pulse Oximetry 97 09/12/24 16:45 Oxygen Delivery High Flow Therapy with Nasal Cannula 09/12/24 13:38 Oxygen Flow Rate 30 09/12/24 13:38 Fraction of Inspired Oxygen 40 09/12/24 13:38 Procedures Central Line Placement Left SC: Central Line Date: 09/12/24 Central Line Time: 16:45 Discussed w/ the patient/family/POA,the placement of a central venous catheter, including its clinical necessity/indication & associated potential risks, benifits and alternatives.: Yes The patient/family/POA understand(s) and acknowledge(s) the need to proceed with central venous catheter insertion as an important element of the patient's clinical management.: Yes Time Out Performed: Yes Patient Placed on Monitor/Pulse Ox: Yes Max. Sterile Barrier Technique: Caps, large sterile sheet and hand hygiene Central Line Prep: 2% chlorhexidine scrub and sterile drapes applied Technique: seldinger Local Anesthetic: lidocaine 1% Amount of anesthesia used (mL): 3 Ultrasound Used for Placement: No Central Line Lumen Inserted: triple Post Procedure: sutured in place, good blood return, all ports aspirated, flushed, capped and sterile dressing applied Post Procedure X-Ray: tip of catheter in good position and no pneumothorax seen Patient Tolerated Procedure: well and no complications Complications: none MDM - Weakness MDM Narrative Medical decision making narrative: 74-year-old female presenting from home in respiratory distress. She was recently diagnosed and treated for pneumonia, completed antibiotics 2 days prior. She presents via EMS after patient was found to be hypoxic, tachycardic and tachypneic at home with soft blood pressures. Reportedly by family she is not on any kind of medications at this time, no history of COPD, CHF for asthma. She is very coarse breath sounds, is diaphoretic and tachycardic and tachypneic with dry mucous membranes. Blood pressure is okay 125/74 but she is tachycardic at 110, requiring non-rebreather for 100% saturation. Reportedly was 82% saturating even on 6 L nasal cannula by EMS. Present concern is for sepsis given the recent pneumonia and SIRS criteria. Other considerations include pneumothorax, ACS, less likely thromboembolic event such as PE as she has no signs or symptoms of a DVT or any other risk factors for Wells criteria workup was ordered with septic bundle, she is given 30 cc/kg bolus secondary to sepsis, started empirically on vancomycin cefepime, blood cultures drawn, cardiac workup ordered, chest x-ray and urinalysis obtained. Respiratory therapy was called to bedside for assistance in setting her on a high-flow nasal cannula as well as obtain ABG for respiratory status. Patient's family (Son and daughter in law) later came to the emergency department and were able to provide a little collateral information. Patient has a history of some pulmonary hypertension that she sees a resolution specialist for an outpatient basis and schedule for an outpatient EGD tomorrow for gerd symptoms. They also informed me that patient is DNR/DNI and has signed paperwork and does not want aggressive measures. Patient did have an episode of coffee-ground emesis here in the emergency department provided 4 mg of IV Zofran while being placed on high-flow nasal cannula. Will hold off on BiPAP at this time secondary to the emesis and see how she does on high-flow. Patient's chest x-ray was obtained and shows what appears to be multifocal pneumonia. She has a significant leukocytosis of 36.7, anemia of 6.9, platelets of 69. Compared to her previous levels her hemoglobin has always been around 10-12. Patient's MyChart provided by the family shows her hemoglobin over 1 month prior was 11.8. Her coagulation studies show slightly prolonged PT but normal INR and APTT. Blood gas shows a normal pH is 7.41, normal pCO2 of 36, normal pCO2 of 22.8 and a PO2 of 91.5 on high-flow nasal cannula. No metabolic respiratory acidosis or alkalosis seen here. Her respiratory distress is likely a combination of pneumonia, hypovolemia, anemia with decreased oxygen carrying capacity. Chemistry panel shows a BUN and creatinine of 85 and 3.7 respectively indicative of acute renal failure compared to her normal creatinine several months prior. Glucose normal, lactic acid elevated 3.6, elevated sodium and chloride indicative of dehydration. BUN of 85 combined with dehydration likely a combination of prerenal azotemia and potentially blood products as she does have coffee-ground emesis and a 5 g hemoglobin drop in the last month. Type and screen and 2 units of packed red blood cells will be transfused at this time. Her troponin came back elevated 1.12 likely type 2 NJ as her EKG shows no evidence of acute ischemic changes. I updated the patient's family members multiple times throughout my encounter here in the emergency department spent greater than 25 minutes with family including her , son, [id number] and coordinated patient's care and wishes with them. Patient did sign DNI/DNR paperwork. Patient is a hard vascular access patient and require central access for blood draws and infusion of multiple medications. She is started on Protonix, already getting IV antibiotics with vancomycin cefepime, needs 2 units of blood and hydration. Family okay with central venous access at this time. CT abdomen pelvis with IV contrast ordered to evaluate for any active extravasation and further delineation of the potential GI bleeding prior to having GI evaluate for urgent versus emergent endoscopy based on results. I independently reviewed patient's CT scan and scrotal to the images, there appears to be a significant bilateral pleural effusion and infiltrates consistent with multifocal pneumonia. Radiology also interprets a heterogenous enhancement of the pancreatic duct with potential for mass versus malignancy. No active GI extravasation although limited by lack of angiography phase. I called and discussed the case with the on-call optician Dr. Whitley. We went over patient's imaging studies, hemoglobin dropped from prior, episode of coffee-ground emesis x2, vital signs and concerned that she is septic from pneumonia and complicated by GI bleed. He is less concerned about an active GI bleed special with the CT scan results but the hemoglobin dropped does require attention with transfusion, recommendations presently are for initiation of Reglan and q.6 for bowel cleaning and motility as well as replenishing the hemoglobin with 2 units and repeat H&H serially. Protonix infusion also be started. Patient does not need any emergent endoscopy per the recommendations at this time until she can be stabilized from a respiratory standpoint. I discussed the case with the ICU flatwork washer Dr. Cope. Went over the patient's care plan and consult recommendations with them. He recommended an NG tube placement and agreed for admission to the intensive care unit at this time. I spoke to the hospitalist team currently being covered by the midlevel provider. We went over patient's care, recommendations by both consultants, diagnosis of severe sepsis with multifocal pneumonia and multiorgan failure complicated from the above, type 2 NJ, acute kidney injury, pancreatic duct dilatation versus mass, and hypoxic respiratory failure requiring high-flow. Patient was accepted to the ICU at this time. NG tube to be placed by nursing staff and x-ray will be obtained confirm. Left- sided subclavian central venous catheter was placed. I interpreted the x-ray postprocedure early as appropriate positioning without any complications. Confirmed by radiology and ready for use. Admission orders placed as well as serial H&H. Medical Records Attestation: I reviewed the patient's medical records. Lab Data Attestation: I reviewed the patient's lab results. 09/12/24 15:10 09/12/24 15:10 Labs: Lab Results 09/12/24 09/12/24 09/12/24 Range/Units 13:21 13:58 14:21 WBC (4.5-10.0) K/mm3 RBC (4.2-5.4) M/mm3 Hgb (12.0-15.0) g/dL Hct (37.0-47.0) % MCV (80-100) fl MCH (26-34) pg MCHC (32-36) g/dl RDW (11.5-14.5) % Plt Count (150-375) k/mm3 MPV Immature Gran % (Auto) Neut % (Auto) Lymph % (Auto) Irion % (Auto) Eos % (Auto) Baso % (Auto) Lymph # (Auto) Irion # (Auto) Eos # (Auto) Baso # (Auto) Abs Immat Gran (auto) Absolute Neuts (auto) Absolute Nucleated RBC Total Counted Neutrophils % (Manual) (46-73) % Band Neutrophils % (0-6) % Lymphocytes % (Manual) (18-44) % Nucleated RBC % Abs Neuts (Manual) (1.7-7.2) K/mm3 Abs Lymphs (Manual) (1.1-4.5) K/mm3 Nucleated RBCs % Platelet Estimate (Adequate) Polychromasia Hypochromasia Poikilocytosis Basophilic Stippling Anisocytosis Pappenheimer Bodies Target Cells Tear Drop Cells Acanthocytes (Spur) Schistocytes PT 17.4 H (11.1-14.7) Seconds INR 1.4 APTT 25.3 (22.3-36.8) Seconds Methemoglobin 1.0 (0-1.5) %THb Sodium (137-145) mmol/L Potassium (3.4-5.0) mmol/L Chloride (98-107) mmol/L Carbon Dioxide (22-30) mmol/L Anion Gap (4-12) mmol/L BUN (7-17) mg/dL Creatinine (0.7-1.0) mg/dL Estim Creat Clear Calc ml/min Estimated GFR (59 - ) Glucose (65-110) mg/dL POC Capillary Glucose 103 (65-105) mg/dl Lactic Acid 3.6 H (0.7-2.0) mmol/L Calcium (8.4-10.2) mg/dL Total Bilirubin (0.2-1.3) mg/dL AST (14-36) U/L ALT (6-35) U/L Alkaline Phosphatase (38-126) U/L Troponin I (0.000-0.034) ng/mL C-Reactive Protein (<1.0) mg/dL Total Protein (6.3-8.2) g/dL Albumin (3.5-5.1) g/dL Nasal MRSA (PCR) (NOT DETECTE) Influenza A (RT-PCR) (Negative) Influenza B (RT-PCR) (Negative) RSV (RT-PCR) (Negative) SARS-CoV-2 RNA (RT-PCR) (Negative) Blood Type Antibody Screen Crossmatch 09/12/24 09/12/24 09/12/24 Range/Units 15:10 15:43 16:14 WBC 36.7 H (4.5-10.0) K/mm3 RBC 2.44 L (4.2-5.4) M/mm3 Hgb 6.9 L* D (12.0-15.0) g/dL Hct 22.7 L (37.0-47.0) % MCV 93.0 (80-100) fl MCH 28.3 (26-34) pg MCHC 30.4 L (32-36) g/dl RDW 31.3 H (11.5-14.5) % Plt Count 69 L D (150-375) k/mm3 MPV TNP Immature Gran % (Auto) Not Reportable Neut % (Auto) Not Reportable Lymph % (Auto) Not Reportable Irion % (Auto) Not Reportable Eos % (Auto) Not Reportable Baso % (Auto) Not Reportable Lymph # (Auto) Not Reportable Irion # (Auto) Not Reportable Eos # (Auto) Not Reportable Baso # (Auto) Not Reportable Abs Immat Gran (auto) Not Reportable Absolute Neuts (auto) Not Reportable Absolute Nucleated RBC Not Reportable Total Counted 100 Neutrophils % (Manual) 81 H (46-73) % Band Neutrophils % 5 (0-6) % Lymphocytes % (Manual) 14 L (18-44) % Nucleated RBC % Not Reportable Abs Neuts (Manual) 31.56 H (1.7-7.2) K/mm3 Abs Lymphs (Manual) 5.13 H (1.1-4.5) K/mm3 Nucleated RBCs 15 % Platelet Estimate Decreased (Adequate) Polychromasia 1+ Hypochromasia 1+ Poikilocytosis 1+ Basophilic Stippling 1+ Anisocytosis 3+ Pappenheimer Bodies 2+ Target Cells 1+ Tear Drop Cells 1+ Acanthocytes (Spur) 2+ Schistocytes 1+ PT (11.1-14.7) Seconds INR APTT (22.3-36.8) Seconds Methemoglobin (0-1.5) %THb Sodium 147 H (137-145) mmol/L Potassium 3.8 (3.4-5.0) mmol/L Chloride 111 H (98-107) mmol/L Carbon Dioxide 25 (22-30) mmol/L Anion Gap 11 (4-12) mmol/L BUN 85 H D (7-17) mg/dL Creatinine 3.70 H (0.7-1.0) mg/dL Estim Creat Clear Calc 12 ml/min Estimated GFR 15 L (59 - ) Glucose 112 H (65-110) mg/dL POC Capillary Glucose (65-105) mg/dl Lactic Acid (0.7-2.0) mmol/L Calcium 8.5 (8.4-10.2) mg/dL Total Bilirubin 2.9 H (0.2-1.3) mg/dL AST 73 H (14-36) U/L ALT 31 (6-35) U/L Alkaline Phosphatase 44 (38-126) U/L Troponin I 1.120 H* (0.000-0.034) ng/mL C-Reactive Protein 5.3 H (<1.0) mg/dL Total Protein 7.0 (6.3-8.2) g/dL Albumin 3.2 L (3.5-5.1) g/dL Nasal MRSA (PCR) Not detected (NOT DETECTE) Influenza A (RT-PCR) Negative (Negative) Influenza B (RT-PCR) Negative (Negative) RSV (RT-PCR) Negative (Negative) SARS-CoV-2 RNA (RT-PCR) Negative (Negative) Blood Type O Positive Antibody Screen Negative Crossmatch See Detail ABG Data ABG results: 09/12/24 13:58 Puncture Site Right radial ABG pH 7.412 ABG pCO2 36.6 ABG pO2 91.5 ABG PO2/FiO2 Ratio 2.29 ABG HCO3 22.8 ABG O2 Saturation 97.1 ABG O2 Content 9.2 L ABG Base Excess -1.6 A-a Gradient 151.6 Oxyhemoglobin 93.0 Carboxyhemoglobin 2.8 H Reduced Hemoglobin 3.2 Total Hemoglobin 6.9 L* O2 Delivery Device High flow therapy O2 Liters/Min 30.0 FiO2 40 Attestation: I personally reviewed and interpreted this ABG as follows: Interpretation: Normal ABG, no acidosis, normal pCO2, O2 appropriate with supplemental oxygen, normal bicarbonate Imaging Data Attestation: I personally reviewed and interpreted this imaging study as follows: My impression: Impressions Chest X-Ray 09/12/24 16:13 IMPRESSION: Left upper and left lower lobe infiltrates, as detailed above. Abdomen/Pelvis CT 09/12/24 16:49 IMPRESSION: Moderate bilateral pleural effusions with bibasilar infiltrates. Heterogeneous enhancement of the pancreas with ductal dilatation for which a malignancy is suspected. Examination was performed as a CT abdomen and pelvis with contrast rather than CTA of the abdomen and pelvis limiting the detection for an active GI hemorrhage. Chest X-Ray 09/12/24 17:28 IMPRESSION: Left subclavian central venous catheter in good position and ready for immediate use. ECG Data EKG #1: Attestation: I personally reviewed and interpreted this ECG as follows: ECG completion date: 09/12/24 ECG completion time: 13:22 Prior ECG tracings: available for review Interpretation: Sinus tachycardia, occasional supraventricular premature complex, no ST segment elevations, depressions or any brought inversions. Nonspecific T-waves, no acute evidence of occlusive myocardial infarction, QTC 495, QRS 93, NM interval 141, final impression sinus tachycardia with occasional ectopy Critical Care Time Critical Care Time Critical Care Time: Yes Total Critical Care Time: 125 Discharge Plan Discharge Clinical Impression: Severe sepsis, Acute hypoxic respiratory failure, Multifocal pneumonia, GI (gastrointestinal bleed), Coffee ground emesis, Severe anemia, MOF (multiple organ failure), Type 2 NJ (myocardial infarction), Acute renal failure, Abnormality of pancreatic duct Patient Disposition: Still a Patient Condition: Critical Patient Language: Puerto [place]ican Prescriptions: No Action triamterene-hydrochlorothiazid 37.5-25 mg tablet 1 tablet PO DAILY Rx Instructions: administer in evening lisinopril 5 mg tablet 5 mg PO DAILY Rx Instructions: administer in evening cholecalciferol (vitamin D3) 50 mcg (2,000 unit) Tablet 50 mcg PO DAILY azithromycin [Zithromax] 500 mg tablet 500 mg PO DAILY 14 Days Qty: 1 0RF amoxicillin-pot clavulanate 875-125 mg tablet 1 tablet PO Q12H Qty: 6 0RF Follow-up/Referrals: Belia,Madhavi Otero MD [Primary Care Provider] - Time of Disposition: 18:23
[2024-09-12 13:24] LABS: Glucose Point of Care 103 mg/dl (65-105)
[2024-09-12] MEDS: LACTATED RINGERS 1,000 ML 999 ML IV CONT ×2 (13:35)
[2024-09-12] MEDS: LACTATED RINGERS 200 ML 999 ML IV CONT (13:35)
[2024-09-12] MEDS: ONDANSETRON INJ 4 MG/2 ML VIAL IV PUSH (13:58)
[2024-09-12 14:02] LABS: Alveolar/Arterial O2 Gradient 151.6 mmHg; Base Excess ABG -1.6 mEq/l (+/-2.0); Carboxyhemoglobin 2.8 % THb (0-2.0); Fractional Inspired Oxygen 40 %; HCO3 ABG 22.8 mEq/l (22.0-26.0); Oxygen Content ABG 9.2 %vol (16.0-22.0); Oxygen Saturation ABG 97.1 % (95.0-100.0); PCO2 ABG 36.6 mmHg (35.0-45.0); PO2 ABG 91.5 mmHg (80.0-100.0); PO2 FiO2 Ratio Arterial Blood 2.29 %; Reduced Hemoglobin 3.2 %THb (0-5.0); pH ABG 7.412 (7.350-7.450)
[2024-09-12 14:06] LABS: Site Drawn RIGHT RADIAL; Total Hemoglobin 6.9 g/dL (12.0-18.0)
[2024-09-12 14:07] LABS: Device HIGH FLOW THERAPY; Modified Allen's Test Pass
[2024-09-12] MEDS: CEFEPIME 2 GM/NS 50 ML 2 GM/50 ML BAG IVPB (14:25)
[2024-09-12] MEDS: PANTOPRAZOLE SODIUM IV 40 MG VIAL 80 MG IV PUSH (14:39)
[2024-09-12 15:01] LABS: INR 1.4; Lactic Acid Reflex 3.6 mmol/L (0.7-2.0); Prothrombin Time 17.4 Seconds (11.1-14.7)
[2024-09-12 15:02] LABS: Partial Thromboplastin Time 25.3 Seconds (22.3-36.8)
[2024-09-12 15:17] LABS: Hematocrit 22.7 % (37.0-47.0); Mean Corpuscular HGB Conc 30.4 g/dl (32-36); Mean Corpuscular Hemoglobin 28.3 pg (26-34); Platelet Count Result 69 k/mm3 (150-375); Red Blood Count 2.44 M/mm3 (4.2-5.4); Red Cell Distribution Width 31.3 % (11.5-14.5); White Blood Count 36.7 K/mm3 (4.5-10.0)
[2024-09-12 15:19] LABS: Hemoglobin 6.9 g/dL (12.0-15.0)
[2024-09-12 15:22] LABS: Neutrophils Percent Manual 81 % (46-73); Total Cells Counted 100
[2024-09-12 15:23] LABS: Band Neutrophils Percent 5 % (0-6); Lymphocytes Absolute Manual 5.13 K/mm3 (1.1-4.5); Lymphocytes Percent Manual 14 % (18-44); Neutrophils Absolute Manual 31.56 K/mm3 (1.7-7.2); Platelet Estimate Decreased (Adequate)
[2024-09-12 15:25] LABS: Basophilic Stippling 1+; Hypochromasia 1+; Poikilocytosis 1+; Polychromasia 1+; Schistocytes 1+
[2024-09-12 15:28] LABS: Alanine Aminotransferase 31 U/L (6-35); Albumin Level 3.2 g/dL (3.5-5.1); Alkaline Phosphatase 44 U/L (38-126); Anion Gap 11 mmol/L (4-12); Anisocytosis 3+; Aspartate Amino Transferase 73 U/L (14-36); Bilirubin,Total 2.9 mg/dL (0.2-1.3); Blood Urea Nitrogen 85 mg/dL (7-17); Calcium 8.5 mg/dL (8.4-10.2); Carbon Dioxide 25 mmol/L (22-30); Chloride 111 mmol/L (98-107); Estimated CRCL calculation 12 ml/min; Estimated Glomerular Filt Rate 15; Glucose 112 mg/dL (65-110); Pappenheimer Bodies 2+; Potassium 3.8 mmol/L (3.4-5.0); Sodium 147 mmol/L (137-145); Target Cells 1+
[2024-09-12 15:29] LABS: Acanthocytes 2+; Tear Drop Cells 1+
[2024-09-12 15:36] LABS: Nucleated Red Blood Cells 15 %
[2024-09-12 15:53] LABS: CRP 5.3 mg/dL (<1.0)
--- NOTE | 2024-09-12 16:24 | PM.IMHP ---
H&P: HPI History of Present Illness Date/Time: 09/12/24 16:24 Chief Complaint: Shortness of breath Narrative: 74-year-old female with a past medical history including hypertension, dementia, and pneumonia in April, discharged with 2-3liters of oxygen with activity, admitted for acute respiratory distress from home with EMS. Patient was recently treated for pneumonia and completed a course of antibiotics 2 days prior to admission. When EMS arrived she was satting 82% on 6L, then placed on a nonrebreather, sats improved to 95%. In the ED, she was in acute distress and placed on a high flow nasal cannula and treated for pneumonia and sepsis given multifocal opacities on chest x-ray and CT. Had an episode of coffee ground emesis in the ER and GI is planning for a scope when she is stable. Also noted have a pancreatic mass on CT concerning for malignancy that will need further workup when stabilized. Labs significant for a WBC up to 36.7, H&H 6.9/22.7, Plt 69, Creatinine 3.70 up from normal baseline with potassium 3.7, bilirubin 2.9, and troponin 1.120. ABG 7.41/CO2 36.6/p(2 91.5/HCO3 22.8 She indicated that she had gradually increasing shortness of breath, without fevers, and she denied dysuria or pain, but interview was limited by her fatigue. DNR/DNI but escalation of care until that point. Patient has a central line as noted below. NG tube for meds. Copied ED note below by Dr. Rosado, as it is quite detailed: 74-year-old female presenting from home in respiratory distress. She was recently diagnosed and treated for pneumonia, completed antibiotics 2 days prior. She presents via EMS after patient was found to be hypoxic, tachycardic and tachypneic at home with soft blood pressures. Reportedly by family she is not on any kind of medications at this time, no history of COPD, CHF for asthma. She is very coarse breath sounds, is diaphoretic and tachycardic and tachypneic with dry mucous membranes. Blood pressure is okay 125/74 but she is tachycardic at 110, requiring non-rebreather for 100% saturation. Reportedly was 82% saturating even on 6 L nasal cannula by EMS. Present concern is for sepsis given the recent pneumonia and SIRS criteria. Other considerations include pneumothorax, ACS, less likely thromboembolic event such as PE as she has no signs or symptoms of a DVT or any other risk factors for Wells criteria workup was ordered with septic bundle, she is given 30 cc/kg bolus secondary to sepsis, started empirically on vancomycin cefepime, blood cultures drawn, cardiac workup ordered, chest x-ray and urinalysis obtained. Respiratory therapy was called to bedside for assistance in setting her on a high-flow nasal cannula as well as obtain ABG for respiratory status. Patient's family (Son and daughter in law) later came to the emergency department and were able to provide a little collateral information. Patient has a history of some pulmonary hypertension that she sees a lean specialist for an outpatient basis and schedule for an outpatient EGD tomorrow for gerd symptoms. They also informed me that patient is DNR/DNI and has signed paperwork and does not want aggressive measures. Patient did have an episode of coffee-ground emesis here in the emergency department provided 4 mg of IV Zofran while being placed on high-flow nasal cannula. Will hold off on BiPAP at this time secondary to the emesis and see how she does on high-flow. Patient's chest x-ray was obtained and shows what appears to be multifocal pneumonia. She has a significant leukocytosis of 36.7, anemia of 6.9, platelets of 69. Compared to her previous levels her hemoglobin has always been around 10-12. Patient's MyChart provided by the family shows her hemoglobin over 1 month prior was 11.8. Her coagulation studies show slightly prolonged PT but normal INR and APTT. Blood gas shows a normal pH is 7.41, normal pCO2 of 36, normal pCO2 of 22.8 and a PO2 of 91.5 on high-flow nasal cannula. No metabolic respiratory acidosis or alkalosis seen here. Her respiratory distress is likely a combination of pneumonia, hypovolemia, anemia with decreased oxygen carrying capacity. Chemistry panel shows a BUN and creatinine of 85 and 3.7 respectively indicative of acute renal failure compared to her normal creatinine several months prior. Glucose normal, lactic acid elevated 3.6, elevated sodium and chloride indicative of dehydration. BUN of 85 combined with dehydration likely a combination of prerenal azotemia and potentially blood products as she does have coffee-ground emesis and a 5 g hemoglobin drop in the last month. Type and screen and 2 units of packed red blood cells will be transfused at this time. Her troponin came back elevated 1.12 likely type 2 WY as her EKG shows no evidence of acute ischemic changes. I updated the patient's family members multiple times throughout my encounter here in the emergency department spent greater than 25 minutes with family including her , son, [id number] and coordinated patient's care and wishes with them. Patient did sign DNI/DNR paperwork. Patient is a hard vascular access patient and require central access for blood draws and infusion of multiple medications. She is started on Protonix, already getting IV antibiotics with vancomycin cefepime, needs 2 units of blood and hydration. Family okay with central venous access at this time. CT abdomen pelvis with IV contrast ordered to evaluate for any active extravasation and further delineation of the potential GI bleeding prior to having GI evaluate for urgent versus emergent endoscopy based on results. I independently reviewed patient's CT scan and scrotal to the images, there appears to be a significant bilateral pleural effusion and infiltrates consistent with multifocal pneumonia. Radiology also interprets a heterogenous enhancement of the pancreatic duct with potential for mass versus malignancy. No active GI extravasation although limited by lack of angiography phase. I called and discussed the case with the on-call director on air Dr. Whitley. We went over patient's imaging studies, hemoglobin dropped from prior, episode of coffee-ground emesis x2, vital signs and concerned that she is septic from pneumonia and complicated by GI bleed. He is less concerned about an active GI bleed special with the CT scan results but the hemoglobin dropped does require attention with transfusion, recommendations presently are for initiation of Reglan and q.6 for bowel cleaning and motility as well as replenishing the hemoglobin with 2 units and repeat H&H serially. Protonix infusion also be started. Patient does not need any emergent endoscopy per the recommendations at this time until she can be stabilized from a respiratory standpoint. I discussed the case with the ICU community engagement coordinator Dr. Cope. Went over the patient's care plan and consult recommendations with them. He recommended an NG tube placement and agreed for admission to the intensive care unit at this time. I spoke to the hospitalist team currently being covered by the midlevel provider. We went over patient's care, recommendations by both consultants, diagnosis of severe sepsis with multifocal pneumonia and multiorgan failure complicated from the above, type 2 W[place], acute kidney injury, pancreatic duct dilatation versus mass, and hypoxic respiratory failure requiring high-flow. Patient was accepted to the ICU at this time. NG tube to be placed by nursing staff and x-ray will be obtained confirm. Left-sided subclavian central venous catheter was placed. I interpreted the x-ray postprocedure early as appropriate positioning without any complications. Confirmed by radiology and ready for use. Admission orders placed as well as serial H&H. Patient is DNR She was also recently seen late last year for pneumonia and hospitalized. Reportedly she has no chronic medical conditions such as COPD or asthma or heart failure. Her last echocardiogram showed an EF about 70% with grade 1 diastolic dysfunction. Patient herself is awake alert but is in respiratory distress with tachypnea in the 40s, hypoxia 82% even on oxygen supplementation via EMS requiring non-rebreather for improvement to 95%. She is tachycardic with a pulse of 110, blood pressure soft in the 100s systolic. She was made a medical resuscitation and brought into Room H3 for further evaluation and treatment. Patient states she feels generally weak and short of breath but denies any chest pain, headache, vision changes, back pain, abdominal pain. She is diaphoretic and expressing chills. [facility] Past Medical History Medical History Hypertension Family History Family History Sibling Acute myocardial infarction Other Dementia Social History Social History Smoking status: Never smoker Alcohol intake: never Substance use: never Substance use type: does not use Do You Feel Safe in your Home?: Yes Lack of Transportation: No Lack of Food: Never True Current Housing: I Have Housing Concerned About Future Housing: No Difficulty Paying Gas/Electric Bills: No Difficulty Paying for Meds: No Currently Unemployed: No Education: High School Diploma/GED Difficulty w/ Childcare or Family Care: No Spiritual care concerns: No Meds Home Medications and Allergies Home Medications ?Medication ?Instructions ?Recorded ?Confirmed ?Type No Home Medications 09/12/24 09/12/24 History Allergies Allergy/AdvReac Type Severity Reaction Status Date / Time No Known Allergies Allergy Verified 05/02/24 14:08 Vital Signs Vital Signs - 24 hr 09/12/24 13:14 09/12/24 13:38 09/12/24 14:43 Temperature 97.6 F Pulse Rate 105 H 107 H Respiratory Rate 27 H 25 H Blood Pressure 125/74 Pulse Oximetry 100 100 Oxygen Delivery Non-Rebreather Mask High Flow Therapy with Na Oxygen Flow Rate 15 30 Fraction of Inspired Oxygen 40 09/12/24 14:45 09/12/24 14:46 09/12/24 15:00 Temperature Pulse Rate 105 H 105 H 108 H Respiratory Rate 25 H 24 H 27 H Blood Pressure 116/70 Pulse Oximetry Oxygen Delivery Oxygen Flow Rate Fraction of Inspired Oxygen 09/12/24 15:01 09/12/24 15:15 09/12/24 15:16 Temperature Pulse Rate 107 H 107 H 106 H Respiratory Rate 29 H 24 H 23 H Blood Pressure 85/24 L 108/68 Pulse Oximetry 94 Oxygen Delivery Oxygen Flow Rate Fraction of Inspired Oxygen 09/12/24 15:20 Temperature Pulse Rate 108 H Respiratory Rate Blood Pressure Pulse Oximetry Oxygen Delivery Oxygen Flow Rate Fraction of Inspired Oxygen Exam Narrative: General - Awake and alert. Fatigued and in acute respiratory distress Eyes - PERRLA, EOM intact ENT - No thrush, No erythema. High flow nasal cannula Neck - No noticeable or palpable swelling Lymph Nodes - No lymphadenopathy Cardiovascular - RRR, + murmur/rub, no JVD Lungs: Coars to auscultation with accessory muscles use and crackles. No wheezes. Skin - Skin warm and dry, no wounds or rashes Abdomen - Normal bowel sounds, abdomen soft and nontender Extremities - No edema, cyanosis or clubbing Musculoskeletal - 5/5 strength, normal range of motion, no swollen or erythematous joints. Neurological ? Alert and oriented x 3, CN 2-12 grossly intact but exam limited by fatigue Psych: Pleasant but in respiratory distress H&P: Results Labs Labs: Short CBC 09/12/24 Range/Units 15:10 WBC 36.7 H (4.5-10.0) K/mm3 Hgb 6.9 L* D (12.0-15.0) g/dL Hct 22.7 L (37.0-47.0) % Plt Count 69 L D (150-375) k/mm3 BMP 09/12/24 15:10 Sodium 147 H Potassium 3.8 Chloride 111 H Carbon Dioxide 25 BUN 85 H D Creatinine 3.70 H Glucose 112 H Calcium 8.5 Cardiac Enzymes 09/12/24 Range/Units 15:10 Troponin I 1.120 H* (0.000-0.034) ng/mL Liver Function 09/12/24 Range/Units 15:10 Total Bilirubin 2.9 H (0.2-1.3) mg/dL AST 73 H (14-36) U/L ALT 31 (6-35) U/L Alkaline Phosphatase 44 (38-126) U/L Albumin 3.2 L (3.5-5.1) g/dL Assessment and Plan Assessment and plan (1) Acute respiratory failure with hypoxia: Code(s): J96.01 - Acute respiratory failure with hypoxia Status: Acute Assessment and Plan: DNR/DNI but otherwise wants all available treatments. Currently on high flow nasal cannula. No wheezing on exam, course lung davidson. Negative for Flu/Covid/RSV. --Pulmonary consult --Strep pneumo, legionella urine antigen --Check mycoplasma IgM, HIV, Full RVP --Sputum culture if able to obtain --differential includes PE specially with possible malignancy, however high risk for anticoagulation given coffee-ground emesis and acute anemia. She also have other explanation for respiratory distress. Check venous Dopplers in AM. --Check D-dimer, but likely to be elevated in the setting of acute bleeding --consider V/Q scan when stabilized or CT r/o PE if not improving and Hgb stabilizes --Treatment of bilateral pleural effusions, thoracentesis --Empiric antibiotics: Cefepime, Vanc. Change to meropenem if worsening (2) GI (gastrointestinal bleed): Code(s): K92.2 - Gastrointestinal hemorrhage, unspecified Status: Acute Assessment and Plan: Report of coffee-ground emesis the ER. 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 Heterogeneous enhancement of the pancreas with ductal dilatation for which a malignancy is suspected. Examination was performed as a CT abdomen and pelvis with contrast rather than CTA of the abdomen and pelvis limiting the detection for an active GI hemorrhage. --MRCP once stabilized, eventual ERCP if still concerning for malignancy (4) Type 2 [place] (myocardial infarction): Code(s): I21.A1 - Myocardial infarction type 2 Status: Acute Assessment and Plan: TTE 05/03/24 showed a normal LVEF. Has a mumur/rub on exam. Hx of pulmonary HTN. --Trend trop --Repeat Echo (5) MOF (multiple organ failure): Status: Acute Assessment and Plan: Treatment of acute renal failure, and respiratory failure, possible heart failure, has type II demand (6) Hypertension: Code(s): I10 - Essential (primary) hypertension Status: Acute Assessment and Plan: Home meds: lisinopril 5mg, triamterene-hctz 37.5-25mg daily Blood pressure 92/69-100/64 --Monitor off meds with soft blood pressures (7) Severe sepsis: Code(s): A41.9 - Sepsis, unspecified organism; R65.20 - Severe sepsis without septic shock Status: Acute Assessment and Plan: Meets criteria for sepsis with WBC 36.7 and elevated lactate, Tachycardia, and pneumonia with evidence of multisystem organ failure --Trend lactate --Fluids as tolerated with respiratory, heart, and renal failure (8) USMAN (acute kidney injury): Code(s): N17.9 - Acute kidney failure, unspecified Status: Acute Assessment and Plan: Creatinine elevated acutely in the setting of sepsis --Strict I&O --UA, Urine Na/Creatinine --Place a peterson for accurate I&O's --Renal consult (9) Bilateral pleural effusion: Code(s): J90 - Pleural effusion, not elsewhere classified Status: Acute Assessment and Plan: Moderate bilateral pleural effusions on CT --Thoracentesis in AM. Send for cytology, and fluid analysis. Quality VTE Prophylaxis VTE prophylaxis: mechanical ordered Hospitalist MIPS Advance Care Plan I have confirmed that the patient's Advanced Care Plan is present, code status is documented, or surrogate decision maker is listed in patient medical record.: Yes Medication Reconciliation I have utilized all available resources to obtain, update and review the patients current medications (includes all prescriptions, OTC, herbals, cannabis, and nutritional supplements).: Yes
[2024-09-12 16:53] LABS: Influenza A QL RT-PCR Negative (Negative); Influenza B QL RT-PCR Negative (Negative); RSV RNA, RT-PCR Negative (Negative); SARS-CoV-2 RNA PCR Negative (Negative)
--- NOTE | 2024-09-12 16:54 | PC.NURSE ---
consents for Central line and Blood products gained and placed in rounder
[2024-09-12] MEDS: VANCOMYCIN 1,000 MG/NS 250 ML 1,000 MG/250 ML BAG 250 MG IVPB (17:03)
[2024-09-12] MEDS: LACTATED RINGERS 1,000 ML 150 ML IV CONT ×2 (17:04→23:40)
[2024-09-12] MEDS: TUBING, BLOOD SET 1 EACH XX (17:04)
[2024-09-12 17:28] LABS: MRSA (PCR) NOT DETECTED (NOT DETECTE)
[2024-09-12 17:46] LABS: Reflex Lactic Acid Yes or No Add Lactic
[2024-09-12] MEDS: PANTOPRAZOLE SODIUM IV 80 MG in SODIUM CHLORIDE 0.9% IV 500 ML 50 MG IV CONT (18:11)
[2024-09-12] MEDS: METOCLOPRAMIDE HCL INJ 10 MG/2 ML VIAL 5 MG IV PUSH ×2 (18:11→23:39)
--- NOTE | 2024-09-12 18:44 | PC.NURSE ---
pt self removed ng tube laced in left nare per EDP no new tube needed
--- NOTE | 2024-09-12 18:46 | PC.NURSE ---
pt Self removed ng tube per edp no new tube needed
--- NOTE | 2024-09-12 20:43 | P.CONGI_ITS ---
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 Status: Acute (4) Acute renal failure: Code(s): N17.9 - Acute kidney failure, unspecified Status: Acute (5) Coffee ground emesis: Code(s): K92.0 - Hematemesis Status: Acute (6) GI (gastrointestinal bleed): Code(s): K92.2 - Gastrointestinal hemorrhage, unspecified Status: Acute (7) Acute hypoxic respiratory failure: Code(s): J96.01 - Acute respiratory failure with hypoxia Status: Acute (8) Severe sepsis: Code(s): A41.9 - Sepsis, unspecified organism; R65.20 - Severe sepsis without septic shock Status: Acute Plan Patient overall is extremely sick with respiratory failure, acute renal failure, sepsis, pneumonia, elevated lactic acid level questionable mass in the head of the pancreas and pancreatic duct dilation and coffee-ground emesis. Patient appears to be hemodynamically stable From the GI perspective patient is not fit for endoscopy at this point because of severe dehydration acute renal failure, respiratory failure and pneumonia At this point would recommend Resuscitation and IV fluids and repeating the labs Close monitoring of vitals as per ICU protocol Broad-spectrum antibiotics as per ICU team Transfusing him 2units of blood and repeating the H&H and checking it every 6 to 8 hours Protonix drip NPO high risk for aspiration Reglan 5mg IV q.6 hours Patient's bilirubin was elevated 2.9 will check direct bilirubin and also ordered the ultrasound of the gallbladder and to see the size of the bile duct at this time patient is not stable to go for MRI Panculture Further recommendations will follow along the hospital course. Patient needs to be stabilized from respiratory standpoint Regular GI team will assume patient care tomorrow morning GI Consult Note Consult date/time: 09/12/24 20:43 Reason for consult: Coffee-ground emesis Respiratory failure Sepsis Pneumonia Elevated lactic acid Shortness of breath Dehydration Renal failure Questionable pancreatic head mass with the pancreatic ductal dilation HPI: Niraj Antonio is a 74 year old female admitted to the hospital through the ER because of shortness of breath and pneumonia patient usually goes to [facility] patient records from there were reviewed patient has chronic problems with shortness of breath pneumonia is recently she has finished antibiotic round stool. Patient had some testing done there patient was brought to the hospital here because of worsening shortness of breath because of the weather conditions patient could not go to [facility] and came to [facility]. Patient usually uses 2 to 3 L of oxygen at home according to the records but here patient has to be kept on non-rebreather face mask to keep the sats up patient has bilateral coarse breath I was unable to get much history from the patient she is able to open up her eyes but with being short of breath she could not even talk but does understand the commands. Also in the records patient has a history of dementia Patient is just transferred to the ICU. According to the staff as well as to the ER physician in the emergency room patient did have coffee-ground emesis and GI consulted for that patient lab workup shows white cell count of 36,000 hemoglobin of 6.9 her baseline hemoglobin is above 10 platelets are 69 lactic acid is 3.6 patient's total bilirubin is 2.9 AST ALT are 73 and 31 creatinine is 3.7 patient did undergo a CT scan of the chest abdomen that showed bilateral pleural effusions infiltrates concerning for pneumonia as an also [id number] heterogenicity in the head of the pancreas noted concerning for a pancreatic mass with pancreatic duct dilation Review of Systems 2 Review of Systems: Unable to get much review of systems as patient is currently on non-rebreather face mask appears to be very short of breath able to understand the commands by opening her eyes but ?cannot give any history PMFSH Past Medical History Medical History Hypertension Family History Family History Sibling Acute myocardial infarction Other Dementia Social History Social History Smoking status: Never smoker Alcohol intake: never Substance use: never Substance use type: does not use Do You Feel Safe in your Home?: Yes Lack of Transportation: No Lack of Food: Never True Current Housing: I Have Housing Concerned About Future Housing: No Difficulty Paying Gas/Electric Bills: No Difficulty Paying for Meds: No Currently Unemployed: No Education: High School Diploma/GED Difficulty w/ Childcare or Family Care: No Spiritual care concerns: No Meds Home Medications and Allergies Home Medications ?Medication ?Instructions ?Recorded ?Confirmed ?Type cholecalciferol (vitamin D3) 50 50 mcg PO DAILY 05/02/24 05/02/24 History mcg (2,000 unit) tablet lisinopril 5 mg tablet 5 mg PO DAILY 05/02/24 05/02/24 History triamterene 37.5 1 tablet PO DAILY 05/02/24 05/02/24 History mg-hydrochlorothiazide 25 mg tablet amoxicillin 875 mg-potassium 1 tablet PO Q12H #6 tabs 05/06/24 Rx clavulanate 125 mg tablet azithromycin 500 mg tablet 500 mg PO DAILY 14 days #1 tablet 05/06/24 Rx (Zithromax) Allergies Allergy/AdvReac Type Severity Reaction Status Date / Time No Known Allergies Allergy Verified 05/02/24 14:08 Vital Signs Vital Signs - 24 hr 09/12/24 13:14 09/12/24 13:38 09/12/24 14:43 Temperature 97.6 F Pulse Rate 105 H 107 H Respiratory Rate 27 H 25 H Blood Pressure 125/74 Pulse Oximetry 100 100 Oxygen Delivery Non-Rebreather Mask High Flow Therapy with Na Oxygen Flow Rate 15 30 Fraction of Inspired Oxygen 40 09/12/24 14:45 09/12/24 14:46 09/12/24 15:00 Temperature Pulse Rate 105 H 105 H 108 H Respiratory Rate 25 H 24 H 27 H Blood Pressure 116/70 Pulse Oximetry Oxygen Delivery Oxygen Flow Rate Fraction of Inspired Oxygen 09/12/24 15:01 09/12/24 15:15 09/12/24 15:16 Temperature Pulse Rate 107 H 107 H 106 H Respiratory Rate 29 H 24 H 23 H Blood Pressure 85/24 L 108/68 Pulse Oximetry 94 Oxygen Delivery Oxygen Flow Rate Fraction of Inspired Oxygen 09/12/24 15:19 09/12/24 15:20 09/12/24 15:32 Temperature Pulse Rate 105 H 108 H 96 Respiratory Rate 23 H 28 H Blood Pressure Pulse Oximetry Oxygen Delivery Oxygen Flow Rate Fraction of Inspired Oxygen 09/12/24 15:45 09/12/24 15:46 09/12/24 16:12 Temperature Pulse Rate 108 H 108 H 108 H Respiratory Rate 26 H 24 H 28 H Blood Pressure 105/63 Pulse Oximetry 94 93 94 Oxygen Delivery Oxygen Flow Rate Fraction of Inspired Oxygen 09/12/24 16:16 09/12/24 16:30 09/12/24 16:36 Temperature Pulse Rate 108 H 112 H 111 H Respiratory Rate 29 H 29 H 33 H Blood Pressure 103/85 Pulse Oximetry 95 95 91 Oxygen Delivery Oxygen Flow Rate Fraction of Inspired Oxygen 09/12/24 16:37 09/12/24 16:45 09/12/24 16:46 Temperature 97.2 F L Pulse Rate 110 H 108 H 108 H Respiratory Rate 26 H 21 H 22 H Blood Pressure 105/67 Pulse Oximetry 96 97 Oxygen Delivery Oxygen Flow Rate Fraction of Inspired Oxygen 09/12/24 16:47 09/12/24 17:00 09/12/24 17:01 Temperature Pulse Rate 109 H 106 H 103 H Respiratory Rate 28 H 28 H 30 H Blood Pressure 101/67 Pulse Oximetry Oxygen Delivery Oxygen Flow Rate Fraction of Inspired Oxygen 09/12/24 17:15 09/12/24 17:16 09/12/24 17:30 Temperature Pulse Rate 107 H 113 H 105 H Respiratory Rate 32 H 27 H 28 H Blood Pressure 108/61 Pulse Oximetry Oxygen Delivery Oxygen Flow Rate Fraction of Inspired Oxygen 09/12/24 17:31 09/12/24 17:45 09/12/24 17:46 Temperature Pulse Rate 108 H 105 H 110 H Respiratory Rate 31 H 31 H 28 H Blood Pressure 97/66 L 101/63 Pulse Oximetry Oxygen Delivery Oxygen Flow Rate Fraction of Inspired Oxygen 09/12/24 18:00 09/12/24 18:01 09/12/24 18:15 Temperature Pulse Rate 109 H 106 H 104 H Respiratory Rate 29 H 30 H 22 H Blood Pressure 96/65 L Pulse Oximetry Oxygen Delivery Oxygen Flow Rate Fraction of Inspired Oxygen 09/12/24 18:16 09/12/24 18:30 09/12/24 18:32 Temperature Pulse Rate 106 H 108 H 114 H Respiratory Rate 23 H 19 26 H Blood Pressure 98/64 L Pulse Oximetry Oxygen Delivery Oxygen Flow Rate Fraction of Inspired Oxygen 09/12/24 18:45 09/12/24 18:46 09/12/24 19:00 Temperature Pulse Rate 104 H 107 H 110 H Respiratory Rate 26 H 24 H 26 H Blood Pressure 92/69 L Pulse Oximetry Oxygen Delivery Oxygen Flow Rate Fraction of Inspired Oxygen 09/12/24 19:01 09/12/24 19:37 09/12/24 19:46 Temperature 99 F Pulse Rate 108 H 109 H 105 H Respiratory Rate 26 H 30 H 29 H Blood Pressure 100/64 111/73 116/67 Pulse Oximetry 96 100 100 Oxygen Delivery Oxygen Flow Rate Fraction of Inspired Oxygen 09/12/24 19:57 Temperature 98.2 F Pulse Rate 109 H Respiratory Rate 32 H Blood Pressure 116/67 Pulse Oximetry 99 Oxygen Delivery Oxygen Flow Rate Fraction of Inspired Oxygen Exam 2 Narrative: facemask tachypneic appears to be sick. With blood transfusion hanging. Const: General: uncomfortable Other: Able to open the eyes on commands HENMT: Mouth: Yes dry mucous membranes Eyes: General: appearance normal, both eyes and all related structures Neck: Neck: supple Chest: Other: Normal Resp: Other: Air entry equal bilateral. coarse breath sounds bilateral Cardio: Rate: regular rate Rhythm: regular rhythm GI: GI Palp: Yes Soft to palpation Auscultation: normal bowel sounds O ther: No rebound no guarding no Mccauley sign Skin: General skin exam: normal color Neuro: Other: Unable to check as patient only opens up her eyes Extrem: General: normal to inspection Psych: Other: Unable to check at this point Results Labs 09/12/24 15:10 09/12/24 15:10 Labs: Short CBC 09/12/24 Range/Units 15:10 WBC 36.7 H (4.5-10.0) K/mm3 Hgb 6.9 L* D (12.0-15.0) g/dL Hct 22.7 L (37.0-47.0) % Plt Count 69 L D (150-375) k/mm3 BMP 09/12/24 15:10 Sodium 147 H Potassium 3.8 Chloride 111 H Carbon Dioxide 25 BUN 85 H D Creatinine 3.70 H Glucose 112 H Calcium 8.5 Cardiac Enzymes 09/12/24 Range/Units 15:10 Troponin I 1.120 H* (0.000-0.034) ng/mL Liver Function 09/12/24 Range/Units 15:10 Total Bilirubin 2.9 H (0.2-1.3) mg/dL AST 73 H (14-36) U/L ALT 31 (6-35) U/L Alkaline Phosphatase 44 (38-126) U/L Albumin 3.2 L (3.5-5.1) g/dL
[2024-09-12] MEDS: CENTRAL LINE FLUSH 10 ML IV PUSH (21:41)
[2024-09-12 21:46] LABS: Hematocrit 22.3 % (37.0-47.0)
--- NOTE | 2024-09-12 21:47 | ADMGEN ---
This patient, Niraj Antonio, was admitted to Intensive Care Unit-3. Patient/family oriented to hospital policies and general routines including ID bracelet, bed and alarms, visiting hours, pain management, procedures, bathroom and other care routines, personal items, smoking policy, room service/diet, and visiting hours. Information on how to activate the Rapid Response Team has been discussed. Patient/Family are encouraged to report perceived risks to care and to ask questions if they do not understand what they are told or what they should do.
[2024-09-12 22:13] LABS: Anion Gap 6 mmol/L (4-12); Blood Urea Nitrogen 85 mg/dL (7-17); Calcium 8.3 mg/dL (8.4-10.2); Carbon Dioxide 27 mmol/L (22-30); Chloride 111 mmol/L (98-107); Estimated CRCL calculation 11 ml/min; Estimated Glomerular Filt Rate 13; Glucose 143 mg/dL (65-110); Potassium 4.1 mmol/L (3.4-5.0); Sodium 144 mmol/L (137-145)
[2024-09-12 22:20] LABS: Add Urine Microscopic? YES; Appearance Urine Clear (Clear); Bacteria Urine None Seen /hpf; Bilirubin Urine Negative (Negative); Blood Urine 3+ (Negative); Budding Yeast Urine Present /hpf; Color Urine Dark Yellow (Yellow); Glucose Urine UA Negative (Negative); Ketones Urine Trace mg/dL (Negative); Leukocyte Esterase Ur 1+ LEU/UL (Negative); Need Manual Microscopic Reviewed; Nitrate Urine Negative (Negative); Non Pathogenic Casts 0-2; Protein Urine 2+ mg/dL (Negative); RBC Urine >100 /hpf (0-2); Specific Grav Ur 1.017 (1.001-1.035); Squamous Epithelial Cell Urine None Seen /hpf (Few); WBC Urine 21-50 /hpf (0-3)
[2024-09-12 22:38] LABS: Creatinine Urine 90.8 mg/dL
[2024-09-12 22:42] LABS: NT Pro B Type Natriuretic Pept > 30000 pg/mL (19.9-100); Sodium Urine Random 46 meq/L
[2024-09-12] MEDS: SODIUM CHLORIDE 0.9% IV 250 ML 30 ML IV CONT (22:42)
[2024-09-12 22:45] LABS: Hepatitis B Surface Antigen Negative (Negative)
[2024-09-12 22:51] LABS: HAV RESULT Negative (Negative); Hepatitis B Core IgM Result Negative (Negative)
[2024-09-12 23:02] LABS: Hepatitis C Virus Antibody Negative (Negative)
[2024-09-12 23:23] LABS: Amphetamine Screen Urine Negative (Negative); Barbiturate Screen Urine Negative (Negative); Benzodiazepines Screen Urine Negative (Negative); Cannabinoid Screen Urine Negative (Negative); Cocaine Screen Urine Negative (Negative); Methadone Screen Urine Negative (Negative); Opiate Screen Urine Negative (Negative); Phencyclidine Screen Urine Negative (Negative)
[2024-09-13] VITALS (29 sets, daily range): BP systolic 116–164; BP diastolic 72–103; PULSE 83–102; RESP 15–22; TEMP 36.3–37.4; O2SAT 86–100; BMI 25.6
[2024-09-13] MEDS: ONDANSETRON INJ 4 MG/2 ML VIAL IV PUSH (00:16)
[2024-09-13 00:32] LABS: Glucose Point of Care 116 mg/dl (65-105)
[2024-09-13 01:59] LABS: Hematocrit 27.5 % (37.0-47.0); Hematocrit 27.9 % (37.0-47.0); Hemoglobin 8.8 g/dL (12.0-15.0); Hemoglobin 8.9 g/dL (12.0-15.0); Immature Platelet Fraction Pct 20.3 % (0.9-11.2); Mean Corpuscular HGB Conc 31.5 g/dl (32-36); Mean Corpuscular Hemoglobin 28.6 pg (26-34); Mean Corpuscular Volume 90.6 fl (80-100); Platelet Count Result 76 k/mm3 (150-375); Red Blood Count 3.08 M/mm3 (4.2-5.4); Red Cell Distribution Width 22.3 % (11.5-14.5); White Blood Count 33.5 K/mm3 (4.5-10.0)
[2024-09-13 02:41] LABS: Band Neutrophils Percent 5 % (0-6); Lymphocytes Absolute Manual 1.67 K/mm3 (1.1-4.5); Metamyelocytes Percent 2 %; Monocytes Absolute Manual 2.01 K/mm3 (0.1-0.90); Monocytes Percent Manual 6 % (3-9); Neutrophils Absolute Manual 29.14 K/mm3 (1.7-7.2); Neutrophils Percent Manual 82 % (46-73); Nucleated Red Blood Cells 9 %; Total Cells Counted 100
[2024-09-13 02:42] LABS: Anisocytosis 1+; Platelet Estimate Decreased (Adequate); Poikilocytosis 2+
[2024-09-13 02:43] LABS: Hypochromasia 1+; Ovalocytes 1+; Schistocytes 1+; Target Cells 1+
[2024-09-13 02:44] LABS: Basophilic Stippling 1+; Helmet Cells 1+; Polychromasia 1+; Smudge Cells PRESENT
[2024-09-13 04:20] LABS: Hematocrit 26.5 % (37.0-47.0); Hemoglobin 8.7 g/dL (12.0-15.0); Immature Platelet Fraction Pct 18.6 % (0.9-11.2); Mean Corpuscular HGB Conc 32.8 g/dl (32-36); Mean Corpuscular Hemoglobin 29.2 pg (26-34); Mean Corpuscular Volume 88.9 fl (80-100); Platelet Count Result 73 k/mm3 (150-375); Red Blood Count 2.98 M/mm3 (4.2-5.4); Red Cell Distribution Width 23.1 % (11.5-14.5); White Blood Count 32.1 K/mm3 (4.5-10.0)
[2024-09-13 04:28] LABS: Alanine Aminotransferase 31 U/L (6-35); Alkaline Phosphatase 49 U/L (38-126); Anion Gap 8 mmol/L (4-12); Aspartate Amino Transferase 62 U/L (14-36); Bilirubin,Total 2.9 mg/dL (0.2-1.3); Blood Urea Nitrogen 84 mg/dL (7-17); Carbon Dioxide 25 mmol/L (22-30); Chloride 111 mmol/L (98-107); Estimated CRCL calculation 10 ml/min; Estimated Glomerular Filt Rate 13; Glucose 127 mg/dL (65-110); Magnesium 2.1 mg/dL (1.6-2.3); Phosphorus 6.1 mg/dL (2.5-4.5); Potassium 3.9 mmol/L (3.4-5.0); Sodium 144 mmol/L (137-145)
[2024-09-13 04:32] LABS: INR 1.4; Prothrombin Time 17.8 Seconds (11.1-14.7)
[2024-09-13 04:39] LABS: Vancomycin Random 12.9 ug/mL (10-20)
[2024-09-13 04:40] LABS: D Dimer 3.94 ug/mL (<0.48)
[2024-09-13] MEDS: PANTOPRAZOLE SODIUM IV 80 MG in SODIUM CHLORIDE 0.9% IV 500 ML 50 MG IV CONT ×2 (05:06→15:11)
[2024-09-13] MEDS: METOCLOPRAMIDE HCL INJ 10 MG/2 ML VIAL 5 MG IV PUSH ×4 (05:06→23:55)
[2024-09-13] MEDS: CENTRAL LINE FLUSH 10 ML IV PUSH ×3 (05:06→20:55)
[2024-09-13] MEDS: LACTATED RINGERS 1,000 ML 150 ML IV CONT (05:08)
[2024-09-13 05:09] LABS: HIV 1/2 Ab P24 Ag Result Negative (Negative)
[2024-09-13 06:21] LABS: Alveolar/Arterial O2 Gradient 136.5 mmHg; Base Excess ABG -3.3 mEq/l (+/-2.0); Carboxyhemoglobin 2.6 % THb (0-2.0); Fractional Inspired Oxygen 30 %; HCO3 ABG 22.2 mEq/l (22.0-26.0); Methemoglobin ABG 0.3 %THb (0-1.5); Oxygen Content ABG 6.3 %vol (16.0-22.0); PCO2 ABG 41.6 mmHg (35.0-45.0); PO2 ABG 28.5 mmHg (80.0-100.0); PO2 FiO2 Ratio Arterial Blood 0.95 %; Reduced Hemoglobin 50.9 %THb (0-5.0); Total Hemoglobin 9.7 g/dL (12.0-18.0); pH ABG 7.345 (7.350-7.450)
[2024-09-13 06:22] LABS: Device HIGH FLOW THERAPY; Oxygen Saturation ABG 50.4 % (95.0-100.0); Oxyhemoglobin 46.2 % THb (90.0-100.0); Site Drawn RIGHT BRACHIAL
[2024-09-13] MEDS: VANCOMYCIN 1,000 MG/NS 250 ML 1,000 MG/250 ML BAG 250 MG IVPB (06:43)
[2024-09-13 10:47] LABS: Total Protein Urine Random 191 mg/dL
[2024-09-13 10:53] LABS: Creatinine Urine 65.2 mg/dL; Ur Ttl Prot Creatinine Ratio 2.93 mg/mg (0-0.20)
[2024-09-13 10:55] LABS: Hemoglobin 8.8 g/dL (12.0-15.0)
[2024-09-13 10:57] LABS: Urea Random Urine 315 MG/DL
[2024-09-13 11:02] LABS: Lactic Acid 1.2 mmol/L (0.7-2.0)
[2024-09-13 11:04] LABS: Sodium Urine Random 47 meq/L
[2024-09-13 11:08] LABS: Creatine Kinase 514 U/L (30-135)
[2024-09-13 11:16] LABS: Complement C3 78 mg/dL (88-165)
[2024-09-13 11:24] LABS: Eosinophil Urine None Seen % (None Seen); Urine Eos QC 2nd Tech Confirmed
[2024-09-13 11:41] LABS: Hepatitis B Surface Antigen Negative (Negative)
--- NOTE | 2024-09-13 11:44 | WPDCNINT ---
Assessment and Plan Assessment and plan (1) Severe sepsis: Code(s): A41.9 - Sepsis, unspecified organism; R65.20 - Severe sepsis without septic shock Status: Acute Assessment and Plan: 09/12/2024: Patient present ED from home with complains of shortness of breath, hypoxic respiratory failure. Recently completed antibiotics 2 days prior to admission for pneumonia. Patient was also lethargic with generalized weakness. She was saturating ETT% on 6 L when EMS arrived at the house, improved with shows non-rebreather, in the ED she was placed on high-flow therapy with improvement of her respiratory distress and oxygenation -patient was started on vancomycin and Zosyn, MRSA nares was negative, will discontinue vancomycin -continue Zosyn, add doxycycline -09/12: Blood cultures have been obtained and pending -09/12: Urine cultures have been obtained and pending 09/13: Will order sputum culture -patient has been adequately fluid-resuscitated, hold maintenance IV fluids as patient is 5 L positive since admission -if volume expansion is required will use albumin (2) Acute hypoxic respiratory failure: Code(s): J96.01 - Acute respiratory failure with hypoxia Status: Acute Assessment and Plan: Acute respiratory failure likely related to multifocal pneumonia -continue antibiotics as above -currently on high-flow therapy 30% FiO2 and 30 L flow rate -have asked the respiratory therapist to switch to high-flow nasal cannula with humidified air. Patient does not tolerate will switch back to high-flow therapy -will start bronchodilators (3) Multifocal pneumonia: Code(s): J18.9 - Pneumonia, unspecified organism Status: Acute Assessment and Plan: Continue antibiotics as above (4) GI (gastrointestinal bleed): Code(s): K92.2 - Gastrointestinal hemorrhage, unspecified Status: Acute Assessment and Plan: Patient had coffee-ground emesis in the ER -hemoglobin was 6.9, received 2 units of packed RBCs, -appreciate GI evaluation and recommendation -hemoglobin stable this morning, continue serial hemoglobin/hematocrit -Protonix infusion per GI (5) 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 Heterogeneous enhancement of the pancreas with ductal dilatation for which a malignancy is suspected. Examination was performed as a CT abdomen and pelvis with contrast rather than CTA of the abdomen and pelvis limiting the detection for an active GI hemorrhage (6) Elevated troponin: Code(s): R79.89 - Other specified abnormal findings of blood chemistry Status: Acute Assessment and Plan: Troponins were elevated but flat, likely related to type 2 infarct -will obtain echocardiogram to evaluate wall motion abnormality (7) Hypertension: Code(s): I10 - Essential (primary) hypertension Status: Acute Assessment and Plan: Will hold antihypertensives as patient was hypotensive on admission, blood pressures have been stable for now Plan DVT prophylaxis: SCDs, no chemoprophylaxis secondary to GI bleed, anemia and coffee-ground emesis Stress ulcer prophylaxis: Protonix infusion Nutrition: NPO for now Code Status: Do not resuscitate Critical Care Time Spent: 49 minutes Due to a high probability of clinically significant, life threatening deterioration, the patient required my highest level of preparedness to intervene emergently and I personally spent this critical care time directly and personally managing the patient. This critical care time included obtaining a history; examining the patient; pulse oximetry; ordering and review of studies; arranging urgent treatment with development of a management plan; evaluation of patient's response to treatment; frequent reassessment; and discussions with other providers. It was exclusive of separately billable procedures and treating other patients and teaching time. Please see Assessment and Plan section and the rest of the note for further information on patient assessment and treatment This dictation may have been done utilizing a voice recognition system. Attempts have been made to correct errors. However, there may be uncorrected grammatical, spelling, and recognitions errors present. 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 Also recently had pneumonia and completed a course of antibiotics 2 days prior to admission, presented to the ED on 09/12/2024 with complains of shortness of breath, altered mental status, respiratory distress, tachycardia, hypoxia, hypotension. Upon arrival of EMS to the home patient was saturating 82% on 6 L, then the placed on non-rebreather with improvement in her O2 sats. In the ED patient was placed on high-flow therapy with improvement in her respiratory status. WBC count was up to 36.7, hemoglobin was 6.9 after she had coffee-ground emesis in the ER. Creatinine was up to 3.70 from a baseline of 0.80 -1.00 in 04/2024). Troponins were elevated but flat, ABGs were adequate. Patient was started on vancomycin and Zosyn and transferred to the ICU for further management. Central line was inserted for venous insufficiency, patient responded well to IV fluid bolus and not require pressors. Patient seen and examined the ICU this morning. Remains on high-flow therapy 30% FiO2 and 30 L flow rate with good O2 sats, hemodynamically stable, low urine output despite being 5 L positive fluid balance. Patient is awake, alert, oriented to place and person and was able to did tell me her date of . Slow to respond. Patient does have a history of dementia. Afebrile. Denies any chest pain, shortness of breath abdominal pain, nausea, vomiting at this time Review of Systems Review of Systems: All systems reviewed & are unremarkable except as noted in HPI and below PMFSH Past Medical History Medical History Hypertension Family History Family History Sibling Acute myocardial infarction Other Dementia Social History Social History Smoking status: Never smoker Alcohol intake: never Substance use: never Substance use type: does not use Do You Feel Safe in your Home?: Yes Lack of Transportation: No Lack of Food: Never True Current Housing: I Have Housing Concerned About Future Housing: No Difficulty Paying Gas/Electric Bills: No Difficulty Paying for Meds: No Currently Unemployed: No Education: High School Diploma/GED Difficulty w/ Childcare or Family Care: No Spiritual care concerns: No Meds Home Medications and Allergies Home Medications ?Medication ?Instructions ?Recorded ?Confirmed ?Type No Home Medications 09/12/24 09/12/24 History Allergies Allergy/AdvReac Type Severity Reaction Status Date / Time No Known Allergies Allergy Verified 05/02/24 14:08 Vital Signs Vital Signs - 24 hr 09/12/24 13:14 09/12/24 13:38 09/12/24 14:43 Temperature 97.6 F Pulse Rate 105 H 107 H Respiratory Rate 27 H 25 H Blood Pressure 125/74 Pulse Oximetry 100 100 Oxygen Delivery Non-Rebreather Mask High Flow Therapy with Na Oxygen Flow Rate 15 30 Fraction of Inspired Oxygen 40 09/12/24 14:45 09/12/24 14:46 09/12/24 15:00 Temperature Pulse Rate 105 H 105 H 108 H Respiratory Rate 25 H 24 H 27 H Blood Pressure 116/70 Pulse Oximetry Oxygen Delivery Oxygen Flow Rate Fraction of Inspired Oxygen 09/12/24 15:01 09/12/24 15:15 09/12/24 15:16 Temperature Pulse Rate 107 H 107 H 106 H Respiratory Rate 29 H 24 H 23 H Blood Pressure 85/24 L 108/68 Pulse Oximetry 94 Oxygen Delivery Oxygen Flow Rate Fraction of Inspired Oxygen 09/12/24 15:19 09/12/24 15:20 09/12/24 15:32 Temperature Pulse Rate 105 H 108 H 96 Respiratory Rate 23 H 28 H Blood Pressure Pulse Oximetry Oxygen Delivery Oxygen Flow Rate Fraction of Inspired Oxygen 09/12/24 15:45 09/12/24 15:46 09/12/24 16:12 Temperature Pulse Rate 108 H 108 H 108 H Respiratory Rate 26 H 24 H 28 H Blood Pressure 105/63 Pulse Oximetry 94 93 94 Oxygen Delivery Oxygen Flow Rate Fraction of Inspired Oxygen 09/12/24 16:16 09/12/24 16:30 09/12/24 16:36 Temperature Pulse Rate 108 H 112 H 111 H Respiratory Rate 29 H 29 H 33 H Blood Pressure 103/85 Pulse Oximetry 95 95 91 Oxygen Delivery Oxygen Flow Rate Fraction of Inspired Oxygen 09/12/24 16:37 09/12/24 16:45 09/12/24 16:46 Temperature 97.2 F L Pulse Rate 110 H 108 H 108 H Respiratory Rate 26 H 21 H 22 H Blood Pressure 105/67 Pulse Oximetry 96 97 Oxygen Delivery Oxygen Flow Rate Fraction of Inspired Oxygen 09/12/24 16:47 09/12/24 17:00 09/12/24 17:01 Temperature Pulse Rate 109 H 106 H 103 H Respiratory Rate 28 H 28 H 30 H Blood Pressure 101/67 Pulse Oximetry Oxygen Delivery Oxygen Flow Rate Fraction of Inspired Oxygen 09/12/24 17:15 09/12/24 17:16 09/12/24 17:30 Temperature Pulse Rate 107 H 113 H 105 H Respiratory Rate 32 H 27 H 28 H Blood Pressure 108/61 Pulse Oximetry Oxygen Delivery Oxygen Flow Rate Fraction of Inspired Oxygen 09/12/24 17:31 09/12/24 17:45 09/12/24 17:46 Temperature Pulse Rate 108 H 105 H 110 H Respiratory Rate 31 H 31 H 28 H Blood Pressure 97/66 L 101/63 Pulse Oximetry Oxygen Delivery Oxygen Flow Rate Fraction of Inspired Oxygen 09/12/24 18:00 09/12/24 18:01 09/12/24 18:15 Temperature Pulse Rate 109 H 106 H 104 H Respiratory Rate 29 H 30 H 22 H Blood Pressure 96/65 L Pulse Oximetry Oxygen Delivery Oxygen Flow Rate Fraction of Inspired Oxygen 09/12/24 18:16 09/12/24 18:30 09/12/24 18:32 Temperature Pulse Rate 106 H 108 H 114 H Respiratory Rate 23 H 19 26 H Blood Pressure 98/64 L Pulse Oximetry Oxygen Delivery Oxygen Flow Rate Fraction of Inspired Oxygen 09/12/24 18:45 09/12/24 18:46 09/12/24 19:00 Temperature Pulse Rate 104 H 107 H 110 H Respiratory Rate 26 H 24 H 26 H Blood Pressure 92/69 L Pulse Oximetry Oxygen Delivery Oxygen Flow Rate Fraction of Inspired Oxygen 09/12/24 19:01 09/12/24 19:37 09/12/24 19:46 Temperature 99 F Pulse Rate 108 H 109 H 105 H Respiratory Rate 26 H 30 H 29 H Blood Pressure 100/64 111/73 116/67 Pulse Oximetry 96 100 100 Oxygen Delivery Oxygen Flow Rate Fraction of Inspired Oxygen 09/12/24 19:57 09/12/24 20:40 09/12/24 20:57 Temperature 98.2 F 98.0 F Pulse Rate 109 H 100 Respiratory Rate 32 H 24 H Blood Pressure 116/67 110/69 Pulse Oximetry 99 96 96 Oxygen Delivery High Flow Therapy with Na Oxygen Flow Rate 35 Fraction of Inspired Oxygen 35 09/12/24 21:57 09/12/24 22:00 09/12/24 22:00 Temperature 99.0 F 99.2 F Pulse Rate 100 99 99 Respiratory Rate 22 H 23 H Blood Pressure 117/59 L 117/60 Pulse Oximetry 97 96 Oxygen Delivery Oxygen Flow Rate Fraction of Inspired Oxygen 09/12/24 22:46 09/12/24 22:49 09/12/24 23:02 Temperature 99.3 F 98.0 F 99.3 F Pulse Rate 101 H 100 101 H Respiratory Rate 19 24 H 20 Blood Pressure 118/74 110/69 107/74 Pulse Oximetry 100 96 98 Oxygen Delivery Oxygen Flow Rate Fraction of Inspired Oxygen 09/13/24 00:00 09/13/24 00:00 09/13/24 00:00 Temperature 99.3 F Pulse Rate 99 90 Respiratory Rate 22 H Blood Pressure 121/74 Pulse Oximetry 98 96 Oxygen Delivery High Flow Therapy with Na Oxygen Flow Rate 30 Fraction of Inspired Oxygen 35 09/13/24 00:02 09/13/24 01:02 09/13/24 01:15 Temperature 99.3 F 99.1 F 99.1 F Pulse Rate 99 96 95 Respiratory Rate 22 H 20 21 H Blood Pressure 121/74 126/85 127/80 Pulse Oximetry 98 96 96 Oxygen Delivery Oxygen Flow Rate Fraction of Inspired Oxygen 09/13/24 02:00 09/13/24 02:00 09/13/24 02:30 Temperature 99.0 F Pulse Rate 94 92 95 Respiratory Rate 22 H Blood Pressure 116/90 Pulse Oximetry 95 95 Oxygen Delivery High Flow Therapy with Na Oxygen Flow Rate 30 Fraction of Inspired Oxygen 30 09/13/24 04:00 09/13/24 04:00 09/13/24 04:00 Temperature 98.5 F Pulse Rate 96 102 H Respiratory Rate 20 Blood Pressure 140/78 Pulse Oximetry 94 94 Oxygen Delivery High Flow Therapy with Na Oxygen Flow Rate 30 Fraction of Inspired Oxygen 35 09/13/24 06:00 09/13/24 06:00 09/13/24 06:00 Temperature 98.4 F Pulse Rate 90 93 Respiratory Rate 22 H Blood Pressure 124/90 Pulse Oximetry 94 94 Oxygen Delivery High Flow Therapy with Na Oxygen Flow Rate 30 Fraction of Inspired Oxygen 30 09/13/24 08:00 09/13/24 08:00 09/13/24 09:18 Temperature 97.9 F Pulse Rate 91 94 Respiratory Rate 18 21 H Blood Pressure 141/91 H Pulse Oximetry 94 94 95 Oxygen Delivery High Flow Therapy with Na High Flow Therapy with Na Oxygen Flow Rate 30 30 Fraction of Inspired Oxygen 30 30 09/13/24 10:00 09/13/24 11:00 Temperature 97.9 F Pulse Rate 94 Respiratory Rate 21 H Blood Pressure 149/99 H Pulse Oximetry 94 100 Oxygen Delivery High Flow Nasal Cannula Oxygen Flow Rate 5 Fraction of Inspired Oxygen Exam Narrative: General: Pleasant female, appears older than her stated age, in no acute distress HEENT:? Pupils equal and reactive, sclera is clear, moist oral mucosa Neck:? Supple Respiratory:? Coarse breath sounds bilaterally, decreased at bases, no wheezing Cardiac:? S1-S2 was normal, regular rate and rhythm Abdomen:? Soft, nontender, nondistended, normoactive bowel sounds Extremities:? No edema, palpable pedal pulses Neuro:? Patient is awake, alert, oriented to place, unable to tell me her date of and the year, follows simple commands in all extremities Skin:? Warm and dry Psych:? Flat affect Results Labs 09/13/24 10:44 09/13/24 04:01 Labs: Short CBC 09/12/24 09/12/24 09/13/24 Range/Units 15:10 21:27 01:50 WBC 36.7 H 33.5 H (4.5-10.0) K/mm3 Hgb 6.9 L* D 7.0 L 8.8 L (12.0-15.0) g/dL Hct 22.7 L 22.3 L (37.0-47.0) % Plt Count 69 L D (150-375) k/mm3 09/13/24 09/13/24 09/13/24 Range/Units 01:50 01:50 04:01 WBC 32.1 H (4.5-10.0) K/mm3 Hgb 8.9 L 8.7 L (12.0-15.0) g/dL Hct 27.9 L 27.5 L 26.5 L (37.0-47.0) % Plt Count 76 L 73 L (150-375) k/mm3 09/13/24 Range/Units 10:44 WBC (4.5-10.0) K/mm3 Hgb 8.8 L (12.0-15.0) g/dL Hct 27.0 L (37.0-47.0) % Plt Count (150-375) k/mm3 BMP 09/12/24 09/12/24 09/13/24 15:10 21:31 04:01 Sodium 147 H 144 144 Potassium 3.8 4.1 3.9 Chloride 111 H 111 H 111 H Carbon Dioxide 25 27 25 BUN 85 H D 85 H 84 H Creatinine 3.70 H 4.00 H 4.20 H Glucose 112 H 143 H 127 H Calcium 8.5 8.3 L 8.0 L Cardiac Enzymes 09/12/24 09/12/24 09/13/24 Range/Units 15:10 21:31 01:50 Total Creatine Kinase (30-135) U/L Troponin I 1.120 H* 1.100 H* 1.240 H* (0.000-0.034) ng/mL 09/13/24 09/13/24 Range/Units 04:01 10:44 Total Creatine Kinase 514 H (30-135) U/L Troponin I 1.250 H* (0.000-0.034) ng/mL Liver Function 09/12/24 09/12/24 09/13/24 Range/Units 15:10 21:31 04:01 Total Bilirubin 2.9 H 2.9 H (0.2-1.3) mg/dL Direct Bilirubin 0.0 (0-0.3) mg/dL AST 73 H 62 H (14-36) U/L ALT 31 31 (6-35) U/L Alkaline Phosphatase 44 49 (38-126) U/L Albumin 3.2 L 3.0 L (3.5-5.1) g/dL Urine 09/12/24 Range/Units 21:31 Urine Color Dark yellow (Yellow) Urine Appearance Clear (Clear) Urine pH 5.0 (5.0-9.0) Ur Specific [place] 1.017 (1.001-1.035) Urine Protein 2+ H (Negative) mg/dL Urine Glucose (UA) Negative (Negative) mg/dL Quality VTE Prophylaxis VTE prophylaxis: mechanical ordered If No VTE Prophylaxis Answer both mechanical and pharmacologic: Reason no pharmacologic proph: medical contraindication active bleeding/bleeding risk and thrombocytopenia Hospitalist MIPS Advance Care Plan I have confirmed that the patient's Advanced Care Plan is present, code status is documented, or surrogate decision maker is listed in patient medical record.: Yes Medication Reconciliation I have utilized all available resources to obtain, update and review the patients current medications (includes all prescriptions, OTC, herbals, cannabis, and nutritional supplements).: Yes
--- NOTE | 2024-09-13 12:03 | P.CONNP_ITS ---
Assessment and Plan Assessment and plan (1) USMAN (acute kidney injury): Code(s): N17.9 - Acute kidney failure, unspecified Status: Acute Assessment and Plan: * as note on admission with a creatinine 3.7mg/dl -- up to 4.2mg/dl today * normal creatinine in April 2024 (0.80mg/dl) and August 2024 (0.98mg/dl - from MyChart review) * suspect multifactorial etiology: * sepsis/infection * relative hypotension * prerenal factors * hypoxia * anemia * ROSALIND-I and diuretic use prior to admission * other (?) * evaluation to date noted: * urine electrolytes prerenal by FeUrea * urine eosinophils negative * CPK mildly elevated (but not enough to affect kidney function) * UA suggestive of infection * renal ultrasound without obstruction * 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 * follow trend of repeat labs and UOP (2) Severe sepsis: Code(s): A41.9 - Sepsis, unspecified organism; R65.20 - Severe sepsis without septic shock Status: Acute Assessment and Plan: * suspected based on presentation * SOB + hypoxia + AMS/lethargy + weakness * suspect secondary to pneumonia based on imaging * s/p aggressive IVF resuscitation * follow culture data * on antibiotics * stable hemodynamics noted (3) Acute hypoxic respiratory failure: Code(s): J96.01 - Acute respiratory failure with hypoxia Status: Acute Assessment and Plan: * due to #4 * on high flow oxygen therapy * on bronchodilators * follow respiratory status closely (4) Multifocal pneumonia: Code(s): J18.9 - Pneumonia, unspecified organism Status: Acute Assessment and Plan: * as noted by admission imaging * follow culture data * on antibiotics (5) GI (gastrointestinal bleed): Code(s): K92.2 - Gastrointestinal hemorrhage, unspecified Status: Acute Assessment and Plan: * coffee-ground emesis noted in the ER * admission hemoglobin was 6.9 * s/p PRBC transfusion (2 units) * GI following with recommendations noted * H/H stable since transfusion * on PPI * follow trend of H/H (6) Hypertension: Code(s): I10 - Essential (primary) hypertension Status: Acute Assessment and Plan: * soft BP noted on admission * holding ROSALIND-I and diuretis due to #1 at this time * follow trend of hemodynamics (7) 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 I voiced my concerns that if her renal function continues to deteriorate of if she develops issues with hyperkalemia, worsening acidosis, volume overload, and/or uremia, she may require renal replacement therapy/dialysis. Initially, the patient indicated that she would not want to do dialysis but when I mentioned that dialysis might just be a temporary measure she indicated that might have to think about it. I will continue to follow the patient with you while she remains hospitalized and make further recommendations as deemed necessary. Thank you for allowing me to participate in the care of this patient. L History of Present Illness Reason for Consult Consult date: 09/13/24 Reason for consult: acute renal failure Chief Complaint Chief complaint: Severe sepsis, Multifocal pneumonia, Multiorgan fa Review of Systems 2 Review of Systems: As per HPI. [facility] Past Medical History Medical History Hypertension Family History Family History Sibling Acute myocardial infarction Other Dementia Social History Social History Smoking status: Never smoker Alcohol intake: never Substance use: never Substance use type: does not use Do You Feel Safe in your Home?: Yes Lack of Transportation: No Lack of Food: Never True Current Housing: I Have Housing Concerned About Future Housing: No Difficulty Paying Gas/Electric Bills: No Difficulty Paying for Meds: No Currently Unemployed: No Education: High School Diploma/GED Difficulty w/ Childcare or Family Care: No Spiritual care concerns: No Meds Home Medications and Allergies Home Medications ?Medication ?Instructions ?Recorded ?Confirmed ?Type No Home Medications 09/12/24 09/12/24 History Allergies Allergy/AdvReac Type Severity Reaction Status Date / Time No Known Allergies Allergy Verified 05/02/24 14:08 Vital Signs Vital Signs Temp Pulse Resp BP Pulse Ox O2 Del Method O2 Flow Rate 09/13/24 12:00 97.8 F 89 20 143/84 H 100 High Flow Therapy with Na 5 09/13/24 11:18 100 High Flow Nasal Cannula 5 09/13/24 11:00 100 High Flow Nasal Cannula 5 09/13/24 10:58 96 High Flow Therapy with Na 30 09/13/24 10:00 95 09/13/24 10:00 97.9 F 94 21 H 149/99 H 94 09/13/24 09:18 95 High Flow Therapy with Na 30 09/13/24 08:00 92 09/13/24 08:00 94 21 H 94 High Flow Therapy with Na 30 09/13/24 08:00 97.9 F 91 18 141/91 H 94 09/13/24 06:00 94 High Flow Therapy with Na 30 09/13/24 06:00 98.4 F 93 22 H 124/90 94 09/13/24 06:00 90 09/13/24 04:00 94 High Flow Therapy with Na 30 09/13/24 04:00 102 H 09/13/24 04:00 98.5 F 96 20 140/78 94 09/13/24 02:30 95 95 High Flow Therapy with Na 30 09/13/24 02:00 99.0 F 92 22 H 116/90 95 09/13/24 02:00 94 09/13/24 01:15 99.1 F 95 21 H 127/80 96 09/13/24 01:02 99.1 F 96 20 126/85 96 09/13/24 00:02 99.3 F 99 22 H 121/74 98 09/13/24 00:00 90 09/13/24 00:00 96 High Flow Therapy with Na 30 09/13/24 00:00 99.3 F 99 22 H 121/74 98 09/12/24 23:02 99.3 F 101 H 20 107/74 98 09/12/24 22:49 98.0 F 100 24 H 110/69 96 09/12/24 22:46 99.3 F 101 H 19 118/74 100 09/12/24 22:00 99 09/12/24 22:00 99.2 F 99 23 H 117/60 96 09/12/24 21:57 99.0 F 100 22 H 117/59 L 97 09/12/24 20:57 98.0 F 100 24 H 110/69 96 09/12/24 20:40 96 High Flow Therapy with Na 35 09/12/24 19:57 98.2 F 109 H 32 H 116/67 99 09/12/24 19:46 105 H 29 H 116/67 100 09/12/24 19:37 99 F 109 H 30 H 111/73 100 09/12/24 19:01 108 H 26 H 100/64 96 09/12/24 19:00 110 H 26 H 09/12/24 18:46 107 H 24 H 92/69 L 09/12/24 18:45 104 H 26 H 09/12/24 18:32 114 H 26 H 09/12/24 18:30 108 H 19 09/12/24 18:16 106 H 23 H 98/64 L 09/12/24 18:15 104 H 22 H 09/12/24 18:01 106 H 30 H 96/65 L 09/12/24 18:00 109 H 29 H 09/12/24 17:46 110 H 28 H 101/63 09/12/24 17:45 105 H 31 H 09/12/24 17:31 108 H 31 H 97/66 L 09/12/24 17:30 105 H 28 H 09/12/24 17:16 113 H 27 H 108/61 09/12/24 17:15 107 H 32 H 09/12/24 17:01 103 H 30 H 101/67 09/12/24 17:00 106 H 28 H 09/12/24 16:47 109 H 28 H 09/12/24 16:46 97.2 F L 108 H 22 H 105/67 09/12/24 16:45 108 H 21 H 97 09/12/24 16:37 110 H 26 H 96 09/12/24 16:36 111 H 33 H 103/85 91 09/12/24 16:30 112 H 29 H 95 Exam 2 Narrative: GENERAL APPEARANCE: elderly female who appears older than stated age in no acute distress HEENT: normocephalic, atraumatic, normal conjunctiva and sclera, nares patient NECK: no lymphadenopathy, thyromegaly, or JVD MOUTH: normal lips, teeth, and gums CARDIOVASCULAR: RRR, normal S1 and S2, no rub detected RESPIRATORY: coarse breath sounds; decreased at bases ABDOMEN: soft, nontender, nondistended, positive bowel sounds present EXTREMITIES: no evidence of cyanosis, clubbing, or edema NEUROLOGICAL: alert and oriented x 2 - 3; CN II - XII intact bilaterally; no focal deficits noted Results Lab Results 09/13/24 21:05 09/13/24 04:01 Lab results: Most recent lab results ABG pH 7.345 (7.350-7.450) L 09/13/24 06:11 ABG pCO2 41.6 mmHg (35.0-45.0) 09/13/24 06:11 ABG pO2 28.5 mmHg (80.0-100.0) L* 09/13/24 06:11 ABG HCO3 22.2 mEq/l (22.0-26.0) 09/13/24 06:11 ABG O2 Saturation 50.4 % (95.0-100.0) L* 09/13/24 06:11 Calcium 8.0 mg/dL (8.4-10.2) L 09/13/24 04:01 Phosphorus 6.1 mg/dL (2.5-4.5) H 09/13/24 04:01 Phosphorus Cancelled 09/13/24 04:01 Magnesium 2.1 mg/dL (1.6-2.3) 09/13/24 04:01 Magnesium Cancelled 09/13/24 04:01 Urine Creatinine 65.2 mg/dL 09/13/24 10:13 Urine Creatinine Cancelled 09/13/24 10:13
[2024-09-13 12:05] LABS: Hepatitis B Surface Anti Res Indeterminate
[2024-09-13 12:11] LABS: Glucose Point of Care 112 mg/dl (65-105)
[2024-09-13] MEDS: PIPERACILLIN/TAZ 2.25G/NS 50ML 2.25 GM/50 ML BAG IVPB ×2 (12:18→20:54)
[2024-09-13] MEDS: DOXYCYCLINE 100 MG/NS 100 ML 100 MG/100 ML BAG IVPB ×2 (12:20→20:54)
[2024-09-13] MEDS: IPRATROPIUM 0.5 MG/ALBUTEROL SULFATE 2.5 MG AMPUL.NEB 3 ML INHALATION ×2 (14:03→20:28)
[2024-09-13 15:17] LABS: Hematocrit 26.7 % (37.0-47.0); Hemoglobin 8.7 g/dL (12.0-15.0)
[2024-09-13 17:20] LABS: Glucose Point of Care 99 mg/dl (65-105)
--- NOTE | 2024-09-13 17:50 | PC.NURSE ---
Dr. Whitley returned phone call from earlier. RN clarified H&H draw schedule with MD. MD also recommends calling GI lab in the AM to follow-up on which MD and when she will be seen. I would recommend a bedside swallow evaluation by speech therapy prior to initiating a diet. Please only order bedside swallow evaluation after speaking with GI MD. I would like to confirm that they're not scoping the patient before allowing a swallow study to be done.
--- NOTE | 2024-09-13 19:55 | P.PNIM_ITS ---
Progress Note: A&P Assessment and Plan (1) Acute respiratory failure with hypoxia: Code(s): J96.01 - Acute respiratory failure with hypoxia Status: Acute Assessment and Plan: DNR/DNI but otherwise wants all available treatments. Currently on high flow nasal cannula. No wheezing on exam, course lung davidson. Negative for Flu/Covid/RSV. --Pulmonary consult --Strep pneumo, legionella urine antigen --Check mycoplasma IgM, HIV, Full RVP --Sputum culture if able to obtain --differential includes PE specially with possible malignancy, however high risk for anticoagulation given coffee-ground emesis and acute anemia. She also have other explanation for respiratory distress. Check venous Dopplers in AM. --Check D-dimer, but likely to be elevated in the setting of acute bleeding --consider V/Q scan when stabilized or CT r/o PE if not improving and Hgb stabilizes --Treatment of bilateral pleural effusions, thoracentesis --Empiric antibiotics: Cefepime, Vanc. Change to meropenem if worsening (2) GI (gastrointestinal bleed): Code(s): K92.2 - Gastrointestinal hemorrhage, unspecified Status: Acute Assessment and Plan: Report of coffee-ground emesis the ER. 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 Heterogeneous enhancement of the pancreas with ductal dilatation for which a malignancy is suspected. Examination was performed as a CT abdomen and pelvis with contrast rather than CTA of the abdomen and pelvis limiting the detection for an active GI hemorrhage. --MRCP once stabilized, eventual ERCP if still concerning for malignancy (4) Type 2 RI (myocardial infarction): Code(s): I21.A1 - Myocardial infarction type 2 Status: Acute Assessment and Plan: TTE 05/03/24 showed a normal LVEF. Has a mumur/rub on exam. Hx of pulmonary HTN. --Trend trop --Repeat Echo (5) MOF (multiple organ failure): Status: Acute Assessment and Plan: Treatment of acute renal failure, and respiratory failure, possible heart failure, has type II demand (6) Hypertension: Code(s): I10 - Essential (primary) hypertension Status: Acute Assessment and Plan: Home meds: lisinopril 5mg, triamterene-hctz 37.5-25mg daily Blood pressure 92/69-100/64 --Monitor off meds with soft blood pressures (7) Severe sepsis: Code(s): A41.9 - Sepsis, unspecified organism; R65.20 - Severe sepsis without septic shock Status: Acute Assessment and Plan: Meets criteria for sepsis with WBC 36.7 and elevated lactate, Tachycardia, and pneumonia with evidence of multisystem organ failure --Trend lactate --Fluids as tolerated with respiratory, heart, and renal failure (8) USMAN (acute kidney injury): Code(s): N17.9 - Acute kidney failure, unspecified Status: Acute Assessment and Plan: Creatinine elevated acutely in the setting of sepsis --Strict I&O --UA, Urine Na/Creatinine --Place a peterson for accurate I&O's --Renal consult (9) Bilateral pleural effusion: Code(s): J90 - Pleural effusion, not elsewhere classified Status: Acute Assessment and Plan: Moderate bilateral pleural effusions on CT --Thoracentesis in AM. Send for cytology, and fluid analysis. Subjective Date/time seen: 09/13/24 19:56 Interval history: Patient did not verbalize but nods her head for questionnaire. She denies any pain or fever. Tomorrow will discuss with family and obtain her medical history. Review of Systems Review of Systems: As per HPI. All systems reviewed & are unremarkable except as noted in HPI and below Exam Narrative: General - Awake and alert. Fatigued and in acute respiratory distress Eyes - PERRLA, EOM intact ENT - No thrush, No erythema. High flow nasal cannula Neck - No noticeable or palpable swelling Lymph Nodes - No lymphadenopathy Cardiovascular - RRR, + murmur/rub, no JVD Lungs: Coars to auscultation with accessory muscles use and crackles. No wheezes . Skin - Skin warm and dry, no wounds or rashes Abdomen - Normal bowel sounds, abdomen soft and nontender Extremities - No edema, cyanosis or clubbing Musculoskeletal - 5/5 strength, normal range of motion, no swollen or erythematous joints. Neurological ? Alert and oriented x 3, CN 2-12 grossly intact but exam limited by fatigue Psych: Pleasant but in respiratory distress Objective Data Vital Signs Vital Signs: Vital Signs - 24 hr 09/12/24 19:57 09/12/24 20:40 09/12/24 20:57 Temperature 98.2 F 98.0 F Pulse Rate 109 H 100 Respiratory Rate 32 H 24 H Blood Pressure 116/67 110/69 Pulse Oximetry 99 96 96 Oxygen Delivery High Flow Therapy with Na Oxygen Flow Rate 35 Fraction of Inspired Oxygen 35 09/12/24 21:57 09/12/24 22:00 09/12/24 22:00 Temperature 99.0 F 99.2 F Pulse Rate 100 99 99 Respiratory Rate 22 H 23 H Blood Pressure 117/59 L 117/60 Pulse Oximetry 97 96 Oxygen Delivery Oxygen Flow Rate Fraction of Inspired Oxygen 09/12/24 22:46 09/12/24 22:49 09/12/24 23:02 Temperature 99.3 F 98.0 F 99.3 F Pulse Rate 101 H 100 101 H Respiratory Rate 19 24 H 20 Blood Pressure 118/74 110/69 107/74 Pulse Oximetry 100 96 98 Oxygen Delivery Oxygen Flow Rate Fraction of Inspired Oxygen 09/13/24 00:00 09/13/24 00:00 09/13/24 00:00 Temperature 99.3 F Pulse Rate 99 90 Respiratory Rate 22 H Blood Pressure 121/74 Pulse Oximetry 98 96 Oxygen Delivery High Flow Therapy with Na Oxygen Flow Rate 30 Fraction of Inspired Oxygen 35 09/13/24 00:02 09/13/24 01:02 09/13/24 01:15 Temperature 99.3 F 99.1 F 99.1 F Pulse Rate 99 96 95 Respiratory Rate 22 H 20 21 H Blood Pressure 121/74 126/85 127/80 Pulse Oximetry 98 96 96 Oxygen Delivery Oxygen Flow Rate Fraction of Inspired Oxygen 09/13/24 02:00 09/13/24 02:00 09/13/24 02:30 Temperature 99.0 F Pulse Rate 94 92 95 Respiratory Rate 22 H Blood Pressure 116/90 Pulse Oximetry 95 95 Oxygen Delivery High Flow Therapy with Na Oxygen Flow Rate 30 Fraction of Inspired Oxygen 30 09/13/24 04:00 09/13/24 04:00 09/13/24 04:00 Temperature 98.5 F Pulse Rate 96 102 H Respiratory Rate 20 Blood Pressure 140/78 Pulse Oximetry 94 94 Oxygen Delivery High Flow Therapy with Na Oxygen Flow Rate 30 Fraction of Inspired Oxygen 35 09/13/24 06:00 09/13/24 06:00 09/13/24 06:00 Temperature 98.4 F Pulse Rate 90 93 Respiratory Rate 22 H Blood Pressure 124/90 Pulse Oximetry 94 94 Oxygen Delivery High Flow Therapy with Na Oxygen Flow Rate 30 Fraction of Inspired Oxygen 30 09/13/24 08:00 09/13/24 08:00 09/13/24 08:00 Temperature 97.9 F Pulse Rate 91 94 92 Respiratory Rate 18 21 H Blood Pressure 141/91 H Pulse Oximetry 94 94 Oxygen Delivery High Flow Therapy with Na Oxygen Flow Rate 30 Fraction of Inspired Oxygen 30 09/13/24 09:18 09/13/24 10:00 09/13/24 10:00 Temperature 97.9 F Pulse Rate 94 95 Respiratory Rate 21 H Blood Pressure 149/99 H Pulse Oximetry 95 94 Oxygen Delivery High Flow Therapy with Na Oxygen Flow Rate 30 Fraction of Inspired Oxygen 30 09/13/24 10:58 09/13/24 11:00 09/13/24 11:18 Temperature Pulse Rate Respiratory Rate Blood Pressure Pulse Oximetry 96 100 100 Oxygen Delivery High Flow Therapy with Na High Flow Nasal Cannula High Flow Nasal Cannula Oxygen Flow Rate 30 5 5 Fraction of Inspired Oxygen 30 09/13/24 12:00 09/13/24 12:00 09/13/24 12:00 Temperature 97.8 F Pulse Rate 89 89 89 Respiratory Rate 20 20 Blood Pressure 143/84 H Pulse Oximetry 100 100 Oxygen Delivery High Flow Therapy with Na Oxygen Flow Rate 5 Fraction of Inspired Oxygen 09/13/24 13:29 09/13/24 13:30 09/13/24 14:00 Temperature Pulse Rate 83 Respiratory Rate Blood Pressure Pulse Oximetry 100 99 Oxygen Delivery High Flow Nasal Cannula High Flow Nasal Cannula Oxygen Flow Rate 3 5 Fraction of Inspired Oxygen 09/13/24 14:03 09/13/24 14:03 09/13/24 14:11 Temperature Pulse Rate 88 85 Respiratory Rate 20 20 Blood Pressure Pulse Oximetry 97 Oxygen Delivery High Flow Nasal Cannula Oxygen Flow Rate 3 Fraction of Inspired Oxygen 09/13/24 16:00 09/13/24 16:00 09/13/24 16:00 Temperature 97.5 F L Pulse Rate 88 88 89 Respiratory Rate 20 20 Blood Pressure 143/72 H Pulse Oximetry 97 98 Oxygen Delivery High Flow Therapy with Na Oxygen Flow Rate 3 Fraction of Inspired Oxygen 09/13/24 16:45 09/13/24 18:00 Temperature 97.4 F L Pulse Rate 87 94 Respiratory Rate 21 H Blood Pressure Pulse Oximetry Oxygen Delivery Oxygen Flow Rate Fraction of Inspired Oxygen Intake/Output Intake/Output: Intake & Output 09/10/24 09/11/24 09/12/24 09/13/24 23:59 23:59 23:59 23:59 Intake Total 3800 2612.5 Output Total 164 Balance 3800 2448.5 Meds/Results Medications: Active Medications Generic Name Dose Route Start Last Admin Trade Name Freq PRN Reason Stop Dose Admin Acetaminophen 650 mg 09/12/24 17:36 Acetaminophen 325 Mg Tablet PO Q4H PRN Mild Pain (1-3) or Fever Albuterol/Ipratropium 3 ml 09/13/24 14:00 09/13/24 14:03 Ipratropium 0.5 Mg/Albuterol Sulfate 2.5 Mg Ampul.Neb 3 Ml INHALATION 3 ml Q6HRT RANDALL Administration Fentanyl Citrate 50 mcg 09/12/24 17:36 Fentanyl Citrate Inj (*Crx) 100 Mcg/2 Ml Vial IV PUSH Q2H PRN Pain Rated 7-10 Pantoprazole Sodium 80 mg/ 500 mls @ 50 mls/hr 09/13/24 05:00 09/13/24 15:11 Sodium Chloride IV CONT 50 mls/hr .Q10H RANDALL Administration Piperacillin Sod/Tazobactam Sod 2.25 gm in 50 mls @ 100 mls/hr 09/13/24 12:00 09/13/24 12:57 Zosyn 2.25 Gm/Ns 50 Ml IVPB Infused Q8H RANDALL Infusion Doxycycline Hyclate 100 mg in 100 mls @ 100 mls/hr 09/13/24 12:10 09/13/24 17:23 Vibramycin 100 Mg/Ns 100 Ml IVPB Infused Q12HR RANDALL Infusion Metoclopramide HCl 5 mg 09/12/24 18:00 09/13/24 17:23 Metoclopramide Hcl Inj 10 Mg/2 Ml Vial IV PUSH 5 mg Q6H RANDALL Administration Ondansetron HCl 4 mg 09/13/24 00:10 09/13/24 00:16 Ondansetron Inj 4 Mg/2 Ml Vial IV PUSH 4 mg Q6H PRN Administration Nausea And Vomiting Perflutren Lipid Microsphere 0 ml 09/13/24 12:16 Perflutren Lipid Microspheres 1.5 Ml Vial Diluted To 10 Ml Total Volume IV PUSH 09/16/24 12:16 ONCE PRN adequate visualization Protocol Sodium Chloride 10 ml 09/12/24 22:00 09/13/24 15:11 Central Line Flush IV PUSH 10 ml Q8HR RANDALL Administration Sodium Chloride 20 ml 09/12/24 16:56 Central Line Flush IV PUSH PRN PRN after blood draws Radiology Results: ITS Impressions Abdomen/Pelvis CT 09/12/24 16:49 IMPRESSION: Moderate bilateral pleural effusions with bibasilar infiltrates. Heterogeneous enhancement of the pancreas with ductal dilatation for which a malignancy is suspected. Examination was performed as a CT abdomen and pelvis with contrast rather than CTA of the abdomen and pelvis limiting the detection for an active GI hemorr cholo. Chest X-Ray 09/13/24 07:55 Impression: 1: Interval progression of pulmonary edema. 2: Possible small effusions. 3: Cardiomegaly. Venous Doppler Study 09/13/24 08:47 IMPRESSION: Negative bilateral lower extremity venous US. No deep vein thrombosis. Abdomen Ultrasound 09/13/24 08:48 IMPRESSION: Internal echoes in the gallbladder with wall edema and pericholecystic fluid w hich raises the possibility of cholecystitis. Clinical correlation advised. Otherwise, normal right upper quadrant ultrasound. Renal Ultrasound 09/13/24 11:44 Impression: Unremarkable ultrasound of the kidneys. Limited evaluation of urinary bladder due to Peterson catheter.. Head CT 09/13/24 11:53 IMPRESSION: Hypodensity in the left side of the lon. MRI evaluation advised. Otherwise, No acute intracranial findings. Labs Labs: Laboratory Results - last 24 hr 09/12/24 09/12/24 09/12/24 15:43 21:27 21:31 WBC RBC Hgb 7.0 L Hct 22.3 L MCV MCH MCHC RDW Plt Count MPV Immature Gran % (Auto) Neut % (Auto) Lymph % (Auto) [place] % (Auto) Eos % (Auto) Baso % (Auto) Lymph # (Auto) [place] # (Auto) Eos # (Auto) Baso # (Auto) Abs Immat Gran (auto) Absolute Neuts (auto) Absolute Nucleated RBC Total Counted Neutrophils % (Manual) Band Neutrophils % Lymphocytes % (Manual) Monocytes % (Manual) Metamyelocytes % Nucleated RBC % Abs Neuts (Manual) Abs Lymphs (Manual) Abs Monocytes (Manual) Nucleated RBCs Smudge Cells Platelet Estimate % Immature Plt Fraction Polychromasia Hypochromasia Poikilocytosis Basophilic Stippling Anisocytosis Target Cells Ovalocytes Helmet Cells Schistocytes PT INR D-Dimer Puncture Site ABG pH ABG pCO2 ABG pO2 ABG PO2/FiO2 Ratio ABG HCO3 ABG O2 Saturation ABG O2 Content ABG Base Excess A-a Gradient Oxyhemoglobin Carboxyhemoglobin Methemoglobin Reduced Hemoglobin Total Hemoglobin O2 Delivery Device O2 Liters/Min FiO2 Sodium 144 Potassium 4.1 Chloride 111 H Carbon Dioxide 27 Anion Gap 6 BUN 85 H Creatinine 4.00 H Estim Creat Clear Calc 11 Estimated GFR 13 L Glucose 143 H POC Capillary Glucose Lactic Acid 1.2 Calcium 8.3 L Phosphorus Magnesium Total Bilirubin Direct Bilirubin 0.0 AST ALT Alkaline Phosphatase Total Creatine Kinase Troponin I 1.100 H* NT-Pro-B Natriuret Pep > 42496 H Total Protein Albumin Urine Color Dark yellow Urine Appearance Clear Urine pH 5.0 Ur Specific [place] 1.017 Urine Protein 2+ H Urine Glucose (UA) Negative Urine Ketones Trace H Ur Blood (Man) 3+ H Urine Nitrate Negative Urine Bilirubin Negative Urine Urobilinogen 1.0 Add Ur Microanalysis Reviewed Leukocyte Esterase Rfl 1+ H Urine RBC >100 H Urine WBC 21-50 H Ur Squamous Epith Cells None seen Urine Bacteria None seen Urine Casts 0-2 Urine Yeast (Budding) Present H Urine Eosinophils U Random Total Protein Ur Random Sodium 46 Ur Random Urea Urine Total Volume Urine Creatinine 90.8 Protein/Creat Ratio 2 Random Vancomycin Urine Opiates Screen Negative Urine Methadone Screen Negative Ur Barbiturates Screen Negative Ur Phencyclidine Scrn Negative Ur Amphetamine Screen Negative U Benzodiazepines Scrn Negative Urine Cocaine Screen Negative U Cannabinoids Screen Negative Complement C3 Complement C4 Hepatitis A IgM Ab Negative Hep Bs Antigen Negative Hep Bs Antibody Hep B Core IgM Ab Negative Hepatitis C Ab Screen Negative HIV 1&2 Ab/P24 Ag 4thGn Blood Type O Positive Antibody Screen Negative Crossmatch See Detail 09/13/24 09/13/24 09/13/24 00:30 01:50 01:50 WBC 33.5 H RBC 3.08 L Hgb 8.8 L 8.9 L Hct 27.9 L MCV MCH MCHC RDW Plt Count MPV Immature Gran % (Auto) Neut % (Auto) Lymph % (Auto) [place] % (Auto) Eos % (Auto) Baso % (Auto) Lymph # (Auto) [place] # (Auto) Eos # (Auto) Baso # (Auto) Abs Immat Gran (auto) Absolute Neuts (auto) Absolute Nucleated RBC Total Counted Neutrophils % (Manual) Band Neutrophils % Lymphocytes % (Manual) Monocytes % (Manual) Metamyelocytes % Nucleated RBC % Abs Neuts (Manual) Abs Lymphs (Manual) Abs Monocytes (Manual) Nucleated RBCs Smudge Cells Platelet Estimate % Immature Plt Fraction Polychromasia Hypochromasia Poikilocytosis Basophilic Stippling Anisocytosis Target Cells Ovalocytes Helmet Cells Schistocytes PT INR D-Dimer Puncture Site ABG pH ABG pCO2 ABG pO2 ABG PO2/FiO2 Ratio ABG HCO3 ABG O2 Saturation ABG O2 Content ABG Base Excess A-a Gradient Oxyhemoglobin Carboxyhemoglobin Methemoglobin Reduced Hemoglobin Total Hemoglobin O2 Delivery Device O2 Liters/Min FiO2 Sodium Potassium Chloride Carbon Dioxide Anion Gap BUN Creatinine Estim Creat Clear Calc Estimated GFR Glucose POC Capillary Glucose 116 H Lactic Acid Calcium Phosphorus Magnesium Total Bilirubin Direct Bilirubin AST ALT Alkaline Phosphatase Total Creatine Kinase Troponin I NT-Pro-B Natriuret Pep Total Protein Albumin Urine Color Urine Appearance Urine pH Ur Specific [place] Urine Protein Urine Glucose (UA) Urine Ketones Ur Blood (Man) Urine Nitrate Urine Bilirubin Urine Urobilinogen Add Ur Microanalysis Leukocyte Esterase Rfl Urine RBC Urine WBC Ur Squamous Epith Cells Urine Bacteria Urine Casts Urine Yeast (Budding) Urine Eosinophils U Random Total Protein Ur Random Sodium Ur Random Urea Urine Total Volume Urine Creatinine Protein/Creat Ratio 2 Random Vancomycin Urine Opiates Screen Urine Methadone Screen Ur Barbiturates Screen Ur Phencyclidine Scrn Ur Amphetamine Screen U Benzodiazepines Scrn Urine Cocaine Screen U Cannabinoids Screen Complement C3 Complement C4 Hepatitis A IgM Ab Hep Bs Antigen Hep Bs Antibody Hep B Core IgM Ab Hepatitis C Ab Screen HIV 1&2 Ab/P24 Ag 4thGn Blood Type Antibody Screen Crossmatch 09/13/24 09/13/24 09/13/24 01:50 04:01 04:01 WBC 32.1 H RBC 2.98 L Hgb 8.7 L Hct 27.5 L 26.5 L MCV 90.6 88.9 MCH 28.6 29.2 MCHC 31.5 L 32.8 RDW 22.3 H 23.1 H Plt Count 76 L 73 L MPV TNP TNP Immature Gran % (Auto) Not Reportable Neut % (Auto) Not Reportable Lymph % (Auto) Not Reportable [place] % (Auto) Not Reportable Eos % (Auto) Not Reportable Baso % (Auto) Not Reportable Lymph # (Auto) Not Reportable [place] # (Auto) Not Reportable Eos # (Auto) Not Reportable Baso # (Auto) Not Reportable Abs Immat Gran (auto) Not Reportable Absolute Neuts (auto) Not Reportable Absolute Nucleated RBC Not Reportable Total Counted 100 Neutrophils % (Manual) 82 H Band Neutrophils % 5 Lymphocytes % (Manual) 5.0 L Monocytes % (Manual) 6 Metamyelocytes % 2 Nucleated RBC % Not Reportable Abs Neuts (Manual) 29.14 H Abs Lymphs (Manual) 1.67 Abs Monocytes (Manual) 2.01 H Nucleated RBCs 9 Smudge Cells Present Platelet Estimate Decreased % Immature Plt Fraction 20.3 H 18.6 H Polychromasia 1+ Hypochromasia 1+ Poikilocytosis 2+ Basophilic Stippling 1+ Anisocytosis 1+ Target Cells 1+ Ovalocytes 1+ Helmet Cells 1+ Schistocytes 1+ PT 17.8 H INR 1.4 D-Dimer 3.94 H Puncture Site ABG pH ABG pCO2 ABG pO2 ABG PO2/FiO2 Ratio ABG HCO3 ABG O2 Saturation ABG O2 Content ABG Base Excess A-a Gradient Oxyhemoglobin Carboxyhemoglobin Methemoglobin Reduced Hemoglobin Total Hemoglobin O2 Delivery Device O2 Liters/Min FiO2 Sodium 144 Potassium 3.9 Chloride 111 H Carbon Dioxide 25 Anion Gap 8 BUN 84 H Creatinine 4.20 H Estim Creat Clear Calc 10 Estimated GFR 13 L Glucose 127 H POC Capillary Glucose Lactic Acid Calcium 8.0 L Phosphorus 6.1 H Cancelled Magnesium 2.1 Total Bilirubin Direct Bilirubin AST ALT Alkaline Phosphatase Total Creatine Kinase Troponin I 1.240 H* NT-Pro-B Natriuret Pep Total Protein Albumin Urine Color Urine Appearance Urine pH Ur Specific [place] Urine Protein Urine Glucose (UA) Urine Ketones Ur Blood (Man) Urine Nitrate Urine Bilirubin Urine Urobilinogen Add Ur Microanalysis Leukocyte Esterase Rfl Urine RBC Urine WBC Ur Squamous Epith Cells Urine Bacteria Urine Casts Urine Yeast (Budding) Urine Eosinophils U Random Total Protein Ur Random Sodium Ur Random Urea Urine Total Volume Urine Creatinine Protein/Creat Ratio 2 Random Vancomycin Urine Opiates Screen Urine Methadone Screen Ur Barbiturates Screen Ur Phencyclidine Scrn Ur Amphetamine Screen U Benzodiazepines Scrn Urine Cocaine Screen U Cannabinoids Screen Complement C3 Complement C4 Hepatitis A IgM Ab Hep Bs Antigen Hep Bs Antibody Hep B Core IgM Ab Hepatitis C Ab Screen HIV 1&2 Ab/P24 Ag 4thGn Blood Type Antibody Screen Crossmatch 09/13/24 09/13/24 09/13/24 04:01 06:11 10:13 WBC RBC Hgb Hct MCV MCH MCHC RDW Plt Count MPV Immature Gran % (Auto) Neut % (Auto) Lymph % (Auto) [place] % (Auto) Eos % (Auto) Baso % (Auto) Lymph # (Auto) [place] # (Auto) Eos # (Auto) Baso # (Auto) Abs Immat Gran (auto) Absolute Neuts (auto) Absolute Nucleated RBC Total Counted Neutrophils % (Manual) Band Neutrophils % Lymphocytes % (Manual) Monocytes % (Manual) Metamyelocytes % Nucleated RBC % Abs Neuts (Manual) Abs Lymphs (Manual) Abs Monocytes (Manual) Nucleated RBCs Smudge Cells Platelet Estimate % Immature Plt Fraction Polychromasia Hypochromasia Poikilocytosis Basophilic Stippling Anisocytosis Target Cells Ovalocytes Helmet Cells Schistocytes PT INR D-Dimer Puncture Site Right brachial ABG pH 7.345 L ABG pCO2 41.6 ABG pO2 28.5 L* ABG PO2/FiO2 Ratio 0.95 ABG HCO3 22.2 ABG O2 Saturation 50.4 L* ABG O2 Content 6.3 L ABG Base Excess -3.3 A-a Gradient 136.5 Oxyhemoglobin 46.2 L* Carboxyhemoglobin 2.6 H Methemoglobin 0.3 Reduced Hemoglobin 50.9 H Total Hemoglobin 9.7 L O2 Delivery Device High flow therapy O2 Liters/Min 30.0 FiO2 30 Sodium Potassium Chloride Carbon Dioxide Anion Gap BUN Creatinine Estim Creat Clear Calc Estimated GFR Glucose POC Capillary Glucose Lactic Acid Calcium Phosphorus Magnesium Cancelled Total Bilirubin 2.9 H Direct Bilirubin AST 62 H ALT 31 Alkaline Phosphatase 49 Total Creatine Kinase Troponin I 1.250 H* NT-Pro-B Natriuret Pep Total Protein 7.0 Albumin 3.0 L Urine Color Urine Appearance Urine pH Ur Specific [place] Urine Protein Urine Glucose (UA) Urine Ketones Ur Blood (Man) Urine Nitrate Urine Bilirubin Urine Urobilinogen Add Ur Microanalysis Leukocyte Esterase Rfl Urine RBC Urine WBC Ur Squamous Epith Cells Urine Bacteria Urine Casts Urine Yeast (Budding) Urine Eosinophils None seen U Random Total Protein 191 Ur Random Sodium Ur Random Urea Urine Total Volume Urine Creatinine Protein/Creat Ratio 2 Random Vancomycin 12.9 Urine Opiates Screen Urine Methadone Screen Ur Barbiturates Screen Ur Phencyclidine Scrn Ur Amphetamine Screen U Benzodiazepines Scrn Urine Cocaine Screen U Cannabinoids Screen Complement C3 Complement C4 Hepatitis A IgM Ab Hep Bs Antigen Hep Bs Antibody Hep B Core IgM Ab Hepatitis C Ab Screen HIV 1&2 Ab/P24 Ag 4thGn Negative Blood Type Antibody Screen Crossmatch 09/13/24 09/13/24 09/13/24 10:13 10:13 10:44 WBC RBC Hgb 8.8 L Hct 27.0 L MCV MCH MCHC RDW Plt Count MPV Immature Gran % (Auto) Neut % (Auto) Lymph % (Auto) [place] % (Auto) Eos % (Auto) Baso % (Auto) Lymph # (Auto) [place] # (Auto) Eos # (Auto) Baso # (Auto) Abs Immat Gran (auto) Absolute Neuts (auto) Absolute Nucleated RBC Total Counted Neutrophils % (Manual) Band Neutrophils % Lymphocytes % (Manual) Monocytes % (Manual) Metamyelocytes % Nucleated RBC % Abs Neuts (Manual) Abs Lymphs (Manual) Abs Monocytes (Manual) Nucleated RBCs Smudge Cells Platelet Estimate % Immature Plt Fraction Polychromasia Hypochromasia Poikilocytosis Basophilic Stippling Anisocytosis Target Cells Ovalocytes Helmet Cells Schistocytes PT INR D-Dimer Puncture Site ABG pH ABG pCO2 ABG pO2 ABG PO2/FiO2 Ratio ABG HCO3 ABG O2 Saturation ABG O2 Content ABG Base Excess A-a Gradient Oxyhemoglobin Carboxyhemoglobin Methemoglobin Reduced Hemoglobin Total Hemoglobin O2 Delivery Device O2 Liters/Min FiO2 Sodium Potassium Chloride Carbon Dioxide Anion Gap BUN Creatinine Estim Creat Clear Calc Estimated GFR Glucose POC Capillary Glucose Lactic Acid Calcium Phosphorus Magnesium Total Bilirubin Direct Bilirubin AST ALT Alkaline Phosphatase Total Creatine Kinase 514 H Troponin I NT-Pro-B Natriuret Pep Total Protein Albumin Urine Color Urine Appearance Urine pH Ur Specific [place] Urine Protein Urine Glucose (UA) Urine Ketones Ur Blood (Man) Urine Nitrate Urine Bilirubin Urine Urobilinogen Add Ur Microanalysis Leukocyte Esterase Rfl Urine RBC Urine WBC Ur Squamous Epith Cells Urine Bacteria Urine Casts Urine Yeast (Budding) Urine Eosinophils U Random Total Protein Cancelled Ur Random Sodium 47 Ur Random Urea 315 Urine Total Volume Cancelled Urine Creatinine 65.2 Cancelled Protein/Creat Ratio 2 2.93 H Random Vancomycin Urine Opiates Screen Urine Methadone Screen Ur Barbiturates Screen Ur Phencyclidine Scrn Ur Amphetamine Screen U Benzodiazepines Scrn Urine Cocaine Screen U Cannabinoids Screen Complement C3 78 L Complement C4 18.2 Hepatitis A IgM Ab Hep Bs Antigen Negative Hep Bs Antibody Indeterminate Hep B Core IgM Ab Hepatitis C Ab Screen HIV 1&2 Ab/P24 Ag 4thGn Blood Type Antibody Screen Crossmatch 09/13/24 09/13/24 09/13/24 12:00 15:13 17:16 WBC RBC Hgb 8.7 L Hct 26.7 L MCV MCH MCHC RDW Plt Count MPV Immature Gran % (Auto) Neut % (Auto) Lymph % (Auto) [place] % (Auto) Eos % (Auto) Baso % (Auto) Lymph # (Auto) [place] # (Auto) Eos # (Auto) Baso # (Auto) Abs Immat Gran (auto) Absolute Neuts (auto) Absolute Nucleated RBC Total Counted Neutrophils % (Manual) Band Neutrophils % Lymphocytes % (Manual) Monocytes % (Manual) Metamyelocytes % Nucleated RBC % Abs Neuts (Manual) Abs Lymphs (Manual) Abs Monocytes (Manual) Nucleated RBCs Smudge Cells Platelet Estimate % Immature Plt Fraction Polychromasia Hypochromasia Poikilocytosis Basophilic Stippling Anisocytosis Target Cells Ovalocytes Helmet Cells Schistocytes PT INR D-Dimer Puncture Site ABG pH ABG pCO2 ABG pO2 ABG PO2/FiO2 Ratio ABG HCO3 ABG O2 Saturation ABG O2 Content ABG Base Excess A-a Gradient Oxyhemoglobin Carboxyhemoglobin Methemoglobin Reduced Hemoglobin Total Hemoglobin O2 Delivery Device O2 Liters/Min FiO2 Sodium Potassium Chloride Carbon Dioxide Anion Gap BUN Creatinine Estim Creat Clear Calc Estimated GFR Glucose POC Capillary Glucose 112 H 99 Lactic Acid Calcium Phosphorus Magnesium Total Bilirubin Direct Bilirubin AST ALT Alkaline Phosphatase Total Creatine Kinase Troponin I NT-Pro-B Natriuret Pep Total Protein Albumin Urine Color Urine Appearance Urine pH Ur Specific [place] Urine Protein Urine Glucose (UA) Urine Ketones Ur Blood (Man) Urine Nitrate Urine Bilirubin Urine Urobilinogen Add Ur Microanalysis Leukocyte Esterase Rfl Urine RBC Urine WBC Ur Squamous Epith Cells Urine Bacteria Urine Casts Urine Yeast (Budding) Urine Eosinophils U Random Total Protein Ur Random Sodium Ur Random Urea Urine Total Volume Urine Creatinine Protein/Creat Ratio 2 Random Vancomycin Urine Opiates Screen Urine Methadone Screen Ur Barbiturates Screen Ur Phencyclidine Scrn Ur Amphetamine Screen U Benzodiazepines Scrn Urine Cocaine Screen U Cannabinoids Screen Complement C3 Complement C4 Hepatitis A IgM Ab Hep Bs Antigen Hep Bs Antibody Hep B Core IgM Ab Hepatitis C Ab Screen HIV 1&2 Ab/P24 Ag 4thGn Blood Type Antibody Screen Crossmatch Quality VTE Prophylaxis VTE prophylaxis: mechanical ordered Hospitalist MIPS Advance Care Plan I have confirmed that the patient's Advanced Care Plan is present, code status is documented, or surrogate decision maker is listed in patient medical record.: Yes Medication Reconciliation I have utilized all available resources to obtain, update and review the patients current medications (includes all prescriptions, OTC, herbals, cannabis , and nutritional supplements).: Yes
[2024-09-13 21:12] LABS: Hematocrit 25.6 % (37.0-47.0); Hemoglobin 8.4 g/dL (12.0-15.0)
[2024-09-14] VITALS (18 sets, daily range): BP systolic 61–160; BP diastolic 40–135; PULSE 0–220; RESP 18–46; TEMP 36.6–37.1; O2SAT 94–100
[2024-09-14 00:04] LABS: Glucose Point of Care 97 mg/dl (65-105)
[2024-09-14] MEDS: PANTOPRAZOLE SODIUM IV 80 MG in SODIUM CHLORIDE 0.9% IV 500 ML 50 MG IV CONT (02:30)
[2024-09-14] MEDS: IPRATROPIUM 0.5 MG/ALBUTEROL SULFATE 2.5 MG AMPUL.NEB 3 ML INHALATION (02:35)
[2024-09-14] MEDS: METOPROLOL TARTRATE INJ 5 MG/5 ML VIAL IV PUSH ×3 (03:04→03:23)
[2024-09-14 03:24] LABS: Hematocrit 26.5 % (37.0-47.0); Hemoglobin 8.5 g/dL (12.0-15.0); Immature Platelet Fraction Pct 15.7 % (0.9-11.2); Mean Corpuscular HGB Conc 32.1 g/dl (32-36); Mean Corpuscular Hemoglobin 28.8 pg (26-34); Mean Corpuscular Volume 89.8 fl (80-100); Platelet Count Result 68 k/mm3 (150-375); Red Blood Count 2.95 M/mm3 (4.2-5.4); White Blood Count 26.6 K/mm3 (4.5-10.0)
[2024-09-14] MEDS: ALBUMIN HUMAN 25% 25 GM/100 ML 100 ML IVPB (03:41)
[2024-09-14 03:43] LABS: Lactic Acid Reflex 2.7 mmol/L (0.7-2.0)
[2024-09-14 03:44] LABS: Glucose Point of Care 141 mg/dl (65-105)
[2024-09-14] MEDS: NOREPINEPHRINE 8 MG/D5W 250 ML 8 MG/250 ML BAG 9.38 MG IV CONT (03:44)
[2024-09-14 03:45] LABS: Alanine Aminotransferase 30 U/L (6-35); Albumin Level 2.9 g/dL (3.5-5.1); Alkaline Phosphatase 51 U/L (38-126); Anion Gap 15 mmol/L (4-12); Aspartate Amino Transferase 64 U/L (14-36); Bilirubin,Total 3.6 mg/dL (0.2-1.3); Blood Urea Nitrogen 91 mg/dL (7-17); Calcium 7.9 mg/dL (8.4-10.2); Carbon Dioxide 19 mmol/L (22-30); Chloride 112 mmol/L (98-107); Estimated CRCL calculation 9 ml/min; Estimated Glomerular Filt Rate 11; Glucose 143 mg/dL (65-110); Potassium 4.6 mmol/L (3.4-5.0); Sodium 146 mmol/L (137-145)
[2024-09-14 03:50] LABS: Band Neutrophils Percent 4 % (0-6); Lymphocytes Absolute Manual 1.59 K/mm3 (1.1-4.5); Monocytes Absolute Manual 1.33 K/mm3 (0.1-0.90); Monocytes Percent Manual 5 % (3-9); Neutrophils Absolute Manual 23.67 K/mm3 (1.7-7.2); Neutrophils Percent Manual 85 % (46-73); Nucleated Red Blood Cells 47 %; Total Cells Counted 100
[2024-09-14 03:54] LABS: Anisocytosis 1+; Basophilic Stippling 1+; Schistocytes 1+
[2024-09-14 03:55] LABS: Burr Cells 1+; Microcytosis 1+ (NORMAL)
[2024-09-14 03:56] LABS: Platelet Estimate Decreased (Adequate); Poikilocytosis 1+; Polychromasia 1+
--- NOTE | 2024-09-14 04:03 | PC.NURSE ---
Pt went into SVT HR [address] Goel notified. Adenosine 6mg IVP ordered and administered. Pt diaphoretic. RR 40s. Pt pale around her mouth. Dr. Goel came to bedside. See EMR for further orders. Pt's bp became unstable. While staff were in the room filling medication and bipap orders, RN notified pt's family of current condition. Pt's son/POA, Yakov stated that his mother would not want to be shocked/cardioversion. Pt continued to deteriorate after conversation with family. Message left for both Yakov and Kelly. Kelly ([id number]) returned call after pt's passing. Dr. Goel called time of at 0355. Kelly states she will speak with Yakov and will call back to ICU.
--- NOTE | 2024-09-14 04:18 | P.RRN_ITS ---
Critical Care Event Note Summary Code activated: No Narrative: 09/14/2024 approximately 0250 nursing staff called me because the patient had flipped into a narrow complex tachycardia with rates in the 220s to 230s. I gave an order for dose of adenosine and had to patient room. I arrived just after did is seen had been administered. Patient was on external the automated defibrillator device. Rate after adenosine appeared more consistent with AFib with rates in the 160s to 180s. Stat EKG was performed which demonstrated atrial fibrillation with rapid ventricular response. This was a change for the patient's admission EKG which demonstrated sinus tachycardia with a QTC of 495. No overt QT prolongation on EKG today. No ST elevation or signs of acute ischemia. When I arrived to the bedside she was breathing with respiratory rates between 28 and 40. She was overtly diaphoretic and cool to touch. She was unable to answer questions were she is usually able to at least answer yes and no questions. Patient's initial blood pressures or elevated into the 150s and 160s. The patient received a dose IV Lopressor 5 mg with improvement in heart rate down into the 130s. Repeat dose of Lopressor was given approximately 10 minutes later when blood pressures were verified to be within acceptable range and the patient blood pressures. Patient's heart rates remained for the most part in the 120s to 140s. Again blood pressures were monitor closely in blood pressures were still in the 110 to 120s and subsequently a 3rd dose of IV Lopressor was given approximately 15 minutes later. The patient at this time was also placed on BiPAP given her labor work of breathing. She was on 4 L nasal cannula satting 96-100% but was having respiratory rates persistently in the upper 30s to 40s. BiPAP was applied and I was at bedside making adjustments. Initially patient was pulling larger tidal volumes on CPAP of 16/8 and patient's blood pressures had dropped down into the 80s. Subsequently BiPAP settings were adjusted and eventually ideal tidal volumes were obtained with p ressures of 10 over 6 and rate of 24. The patient seemed much more comfortable. ations. The patient's code status had been verified by nursing staff with the family in the course of resuscitation efforts and they stated that they would not want the patient shocked in any way shape or form including synchronized cardioversion. It was confirmed that they would not want intubation. They were okay with patient receiving medications through the central line. Orders were given for Cardizem and amiodarone but before Cardizem or amiodarone could arrive at the bedside the patient's heart rate acutely dropped with significant pauses. Cardizem and amiodarone were not administered. When the patient's blood pressure dropped about 15 minutes after the 3rd dose of metoprolol order was given for albumin. At this time the patient's heart rate was still elevated into the 120s and 130s. The family confirmed that they did not want synchronized cardioversion. As the albumin was starting to infuse is when the patient's respiratory rate and heart rate acutely dropped. An order was given for Levophed but has a Levophed was being hung the patient's respirations which had improved significantly on BiPAP became overtly agonal. The patient's rhythm remained AFib but she was having long sinus pauses and respirations were more sporadic. Within a few minutes the patient . Labs returned after patient had demonstrated slight improvement her white count recurrence of her lactic acidosis, troponin that had trended down from the day prior hemoglobin that was stable new anion gap with acute drop in serum bicarb but normal potassium and magnesium. Chest x-ray ordered during the course of resuscitation demonstrated improved appearance to prior noted pulmonary edema and stable cardiomegaly with left central line in appropriate position at the cavoatrial junction. Cause of unstable cardiac rhythm, new onset AFib RVR, acute respiratory distress. 70 minute spent in critical care activities This case had a high probability of a clinically significant, sudden, or life threatening deterioration of this patient's condition which required my full and direct attention, intervention and personal management. Critical care time: 30 - 74 mins
[2024-09-14 06:20] LABS: Reflex Lactic Acid Yes or No Add Lactic
[2024-09-15 03:14] LABS: Creatinine, Random Urine 70 mg/dL (20-275); Total Prot/Creat ratio mg/mg 3.414 (0.024-0.184); Total Protein/Creatinine Ratio 3414 mg/g creat (24-184)
[2024-09-15 09:39] LABS: Hepatitis B Core Ab Total NON-REACTIVE (NON-REACTIVE)
[2024-09-15 11:39] LABS: Kappa\\Lambda Light Chains 1.68 (0.26-1.65); Lambda Light Chain 140.4 mg/L (5.7-26.3)
[2024-09-16 12:58] LABS: Anti Nuclear Antibody Pattern Cytoplasmic; Anti Nuclear Antibody Titer 1:40 titer
[2024-09-16 15:08] LABS: Anti Glomerular Basement Memb <1.0 AI
[2024-09-17 09:44] LABS: ANCA Screen NEGATIVE (NEGATIVE)
[2024-09-17 18:34] LABS: Pneumococcal Antigen Urine NOT DETECTED
[2024-09-18 19:08] LABS: Mycoplasma IgM Antibody Titer 42 U/mL
--- OUTSIDE RECORDS SUMMARY | 2024-09-19 06:10 | XMS_ITS | Encounter Summary ---
Author Organization [facility] Healthcare Address [address] [place] [address] Care Team Providers Care Director Of Institutional Sales Name Role Phone Madhavi Celaya MD Primary Care Provider Sonya Reed RN Unavailable [phone] Reason for Visit * Reason Onset Date Comments Med Refill 05/18/2024 Encounter Details Date Type Department Care Team (Late st Contact Info) Description 05/18/2024 Telephone [facility] Medical [facility] Primary Care at [address] [address] Madhavi Celaya MD [address] [place] [address] [address] [place] [address] Med Refill Social History Tobacco Use Types Packs/Day Years Used Date Smoking Tobacco: Never Smokeless Tobacco: Never Alcohol Use Standard Drinks/Week Comments No 0 (1 standard drink = 0.6 oz pur e alcohol) [facility] Utilities Answer Date Recorded In the past 12 months has [employer] electric, gas, oil, or water company threatened to shut off services in your home? No 05/07/2024 Social Connection and Isolat ion Panel [NHANES] Answer Date Recorded In a typical week, how many times do you talk on the phone with family, friends, or neighbors? More than three times a week 05/07/2024 How often do you get togethe r with friends or relatives? Once a week 05/07/2024 How often do you attend chur ch or mandaeism services? More than 4 times per year 05/07/2024 Do you belong to any clubs o r organizations such as cheondoism groups, unions, fraternal or athletic groups, or school groups? No 05/07/2024 How often do you attend meet ings of the clubs or organizations you belong to? Never 05/07/2024 Are you , , di vorced, , never , or living with a partner? 05/07/2024 AUDIT-C Answer Date Recorded Q1: How often do you have a drink containing alcohol? Never 05/27/2024 Q2: How many drinks containi ng alcohol do you have on a typical day when you are drinking? Patient does not drink Q3: How often do you have si x or more drinks on one occasion? Never 05/27/2024 Overall Financial Resource Strain (CARDIA) Answe r Date Recorded How hard is it for you to pa y for the very basics like food, housing, medical care, and heating? Not hard at all 05/07/2024 PHQ-2 Answer Date Recorded PHQ-2 Total Score (If total score is 3 or more points, staff should administer the PHQ-9) 0 05/27/2024 Hunger Vital Sign Answer Date Recorded Within the past 12 months, y ou worried that your food would run out before you got the money to buy more. Never true 05/07/20 24 Within the past 12 months, t he food you bought just didn't last and you didn't have money to get more. Never true 05/07/2024 PRAPARE - Transportation Answer Date Re corded In the past 12 months, has l ack of transportation kept you from medical appointments or from getting medications? No 04/10 In the past 12 months, has l ack of transportation kept you from meetings, work, or from getting things needed for daily living? No 05/07/2024 Housing Stability Vital Sign Answer Adiel e Recorded In the last 12 months, was t here a time when you were not able to pay the mortgage or rent on time? No 05/07/2024 In the past 12 months, how m any times have you moved where you were living? 0 05/07/2024 At any time in the past 12 m [facility], were you homeless or living in a custodial (including now)? 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 * Telephone Encounter - Madhavi Celaya MD - 05/18/2024 12:23 PM CDT This was discussed with the patient at appointment. She is going to take it daily for 5 days and then have 9 additional days to use daily as needed. Please make sure the pharmacy fills is a 14 day script * Telephone Encounter - Sheyla Zavala - 05/18/2024 10:45 AM CDT Medication Question/Clarification Medication Name(s): furosemide (LASIX) 20 mg tablet What is the question or clarification needed? Pharmacy requesting clarity on medication If needed, Pharmacy(s) medication(s) should be sent to: [place] [id number] [place] [id number] [address] Additional Comments: Pharmacy calling stating the patient is currently at the pharmacy to hot die picker the refill. Also, stated they need clarification on the directions of the medication dosage. Warm transferred to the backline Does message need to be routed? No documented in this encounter Plan of Treatment Not on file documented as of this encounter Goals Goal Patient Goal Type Associated Problems Recent Progress Patient-Stated? Author ELADIO General Goal - Patient schedules and keeps appointments with all recommended providers ACO Care Management No Sonya Reed RN Note: Problem: Potential for medical complications and readmission if follow-up appointments are not scheduled Interventions: - Ensure all follow-up appointments are scheduled, all prescribed medications have been received. - Address any barriers for keeping scheduled appointment. - Coordinate with patient/caregiver(s) to ensure patient is able to keep scheduled appointment. - Emphasize importance of keeping scheduled appointments. - Identify and discuss questions for next provider visit. - Follow up with patient after scheduled appointment(s) to review any new orders or changes made to medication regimen. ELADIO General Goal - Patient / caregiver verbalizes lifestyle changes necessary to meet self-care needs and executes self-care activities to utmost capability ACO Care Management No Sonya Reed RN Note: Problem: At Risk for Self Care Deficit Interventions: - Assess patient's level of dependence on others along with current level of assistance being provided. - Use motivational interviewing to help guide the patient in accepting the needed amount of assisstance, as applicable. - Contact caregiver and assess their involvement with patient and level of assistance provided, as appropriate. - Assess appropriateness for Home Health. Start referral process if skilled need is present. - Encourage independent ADL's as appropriate. Ensure patient has the appropriate tools at home to be as independent as possible. - Provide fall prevention education to patient and caregiver. - Evaluate need for assistive devices. - Refer to SW if appropriate and patient is agreeable. documented as of this encounter Visit Diagnoses Not on filedocumented in this encounter Care Teams Director Of Institutional Sales Relationship Specialty Start Date End Date Madhavi Celaya MD PCP - General Family Medicine 09/09/23 06/28/24 Sonya Reed RN [address] [place] [address] [address] [place] [address] Perpetual Inventory Clerk 05/07/24 06/01/24 documented as of this encounter
--- OUTSIDE RECORDS SUMMARY | 2024-09-19 06:10 | XMS_ITS | Encounter Summary ---
Author Organization [facility] Medical Group Address [address] [place] [address] Care Team Providers Care Mri Assistant Name Role Phone Kailee Ramirez MD Primary Care Provider [phone] Reason for Visit * Reason Onset Date Comments Dr James Barkley Vaccine 10/05/2020 Encounter Details Date Type Department Care Team (Late st Contact Info) Description 10/05/2020 Telephone [facility] Medical Group at the [address] [place] [address] Kailee Ramirez MD [address] [place] [address] [address] [place], [place] [id number] Dr James Barkley Vaccine Social History Tobacco Use Types Packs/Day Years Used Date Smoking Tobacco: Never Smokeless Tobacco: Never Alcohol Use Standard Drinks/Week Comments No 0 (1 standard drink = 0.6 oz pur e alcohol) PHQ-2 Answer Date Recorded PHQ-2 Total Score (If total score is 3 or more points, staff should administer the PHQ-9) 0 06/21/2020 Comments No Sex and Gender Information Value Date Recorded Sex Assigned at Not on file 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 I assisted by using [facility] website: [email or web address] and entering the contact information below: ??? Name: Niraj Antonio ??? Email: [email or web address] ? Mobile Phone: NA [employer] documented in this encounter Plan of Treatment Not on file documented as of this encounter Visit Diagnoses Not on filedocumented in this encounter Care Teams Mri Assistant Relationship Specialty Start Date End Date Kailee Ramirez MD [facility] [address] Titi A[address] [place] [id number] PCP - General 12/06/16 06/29/23 documented as of this encounter
--- OUTSIDE RECORDS SUMMARY | 2024-09-19 06:10 | XMS_ITS | Encounter Summary ---
Author Organization [facility] Medical Group Address [address] [place] [address] Care Team Providers Care Director Of Loss Prevention Name Role Phone Kailee Ramirez MD Primary Care Provider [phone] Reason for Visit * Reason Comments Hypertension Encounter Details Date Type Department Care Team (Late st Contact Info) Description 11/28/2021 10:45 AM CDT Office Visit [facility] Medical Group at the [address] [place] [address] Kailee Ramirez MD [address] [place] [address] [address] [place] [address] Essential hypertension (Primary Dx) Social History Tobacco Use Types Packs/Day Years Used Date Smoking Tobacco: Never Smokeless Tobacco: Never Alcohol Use Standard Drinks/Week Comments No 0 (1 standard drink = 0.6 oz pur e alcohol) PHQ-2 Answer Date Recorded PHQ-2 Total Score (If total score is 3 or more points, staff should administer the PHQ-9) 0 06/25/2021 Comments No Sex and Gender Information Value Date Recorded Sex Assigned at Not on file 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 Gender Identity Not on file Sexual Orientation Not on file documented as of this encounter Last Filed Vital Signs Vital Sign Reading Time Taken Comments Blood Pressure 122/74 11/28/2021 10:41 AM CDT Pulse 70 11/28/2021 10:41 AM CDT Temperature - - Respiratory Rate 18 11/28/2021 10:41 AM CDT Oxygen Saturation 97% 11/28/2021 10:41 AM CDT Inhaled Oxygen Concentration - - Weight 79.4 kg (175 lb) 11/28/2021 10:41 AM CDT Height 167.6 cm (5' 6 ) 11/28/2021 10:41 AM CDT Body Mass Index 28.25 11/28/2021 10:41 AM CDT documented in this encounter Progress Notes * Kailee Ramirez MD - 11/28/2021 10:45 AM CDT Subjective/Objective Patient ID: Niraj Antonio is a 71 y.o. female. Chief Complaint Patient presents with ??? Hypertension HPI: She has no complaints today She does not check her BP at home She does not have a home monitor She has no exertional chest pain or shortness or breath She has no headaches or dizziness She limits her salt intake Hypertension This is a chronic problem. The current episode started more than 1 year ago. The problem is unchanged. The problem is controlled. Pertinent negatives include no blurred vision, chest pain, headaches,malaise/fatigue, neck pain, palpitations, peripheral edema or shortness of breath. There are no associated agents to hypertension. Past treatments include ROSALIND inhibitors and diuretics. There are no compliance problems. Current Outpatient Medications Medication Sig Dispense Refill ??? lisinopriL (PRINIVIL,ZESTRIL) 5 mg tablet TAKE 1 TABLET BY MOUTH EVERY DAY 90 tablet 0 ??? multivitamin tablet tablet take 1 tablet by oral route every day with food 0 0 ??? nutritional supplements liquid Take by mouth. ??? triamterene-hydroCHLOROthiazide 37.5-25 mg per tablet TAKE 1 TABLET BY MOUTH EVERY DAY 90 tablet 3 No current facility-administered medications for this visit. Review of Systems Constitutional: Negative for chills, fatigue, fever and malaise/fatigue. HENT: Negative for trouble swallowing. Eyes: Negative for blurred vision and visual disturbance. Respiratory: Negative for cough and shortness of breath. Cardiovascular: Negative for chest pain, palpitations and leg swelling. Gastrointestinal: Negative for abdominal pain, nausea and vomiting. Genitourinary: Negative for frequency, hematuria and urgency. Musculoskeletal: Negative for arthralgias and neck pain. Skin: Negative for rash. Neurological: Negative for dizziness, syncope and headaches. Psychiatric/Behavioral: Negative for sleep disturbance. Vitals BP 122/74 Pulse 70 Resp 18 Ht 167.6 cm (5' 6 ) Wt 79.4 kg (175 lb) SpO2 97% BMI 28.25 kg/m?? Physical Exam Constitutional: Appearance: She is well-developed. HENT: Head: Normocephalic and atraumatic. Neck: Thyroid: No thyromegaly. Vascular: No JVD. Cardiovascular: Rate and Rhythm: Normal rate and regular rhythm. Heart sounds: Normal heart sounds. No murmur heard. Pulmonary: Effort: Pulmonary effort is normal. Breath sounds: Normal breath sounds. No wheezing. Abdominal: General: Bowel sounds are normal. Palpations: Abdomen is soft. Tenderness: There is no abdominal tenderness. Musculoskeletal: Cervical back: Normal range of motion and neck supple. Lymphadenopathy: Cervical: No cervical adenopathy. Skin: General: Skin is warm and dry. Neurological: Mental Status: She is alert and oriented to person, place, and time. Psychiatric: Behavior: Behavior normal. Diagnoses and all orders for this visit: Essential hypertension (Primary) Assessment & Plan: Hypertension is well controlled with lifestyle changes and medication Blood Pressure Follow-up: Lifestyle modifications education provided on sodium reduction, increase physical activity and weight reduction Current medication will be continued Will reassess in 6 months. documented in this encounter Miscellaneous Notes * Assessment & Plan Note - Kailee Ramirez MD - 11/28/2021 2:58 PM CDT Associated Problem(s): Essential hypertension Hypertension is well controlled with lifestyle changes and medication Blood Pressure Follow-up: Lifestyle modifications education provided on sodium reduction, increase physical activity and weight reduction Current medication will be continued Will reassess in 6 months. documented in this encounter Plan of Treatment Not on file documented as of this encounter Visit Diagnoses Diagnosis Essential hypertension- Primary Unspecified essential hypertension documented in this encounter Care Teams Director Of Loss Prevention Relationship Specialty Start Date End Date Kailee Ramirez MD [address] [place] [address] PCP - General 12/06/16 06/29/23 documented as of this encounter
--- OUTSIDE RECORDS SUMMARY | 2024-09-19 06:10 | XMS_ITS | Encounter Summary ---
Author Organization [facility] Healthcare Address [address] [place] [address] Care Team Providers Care Gold Blower Name Role Phone Madhavi Celaya MD Primary Care Provider Encounter Details Date Type Department Care Team (Late st Contact Info) Description 09/09/2023 Telephone [facility] Medical Group Primary Care at [address] [address] Madhavi Celaya MD [address] [place] [address] [address] [place] [address] Social History Tobacco Use Types Packs/Day Years Used Date Smoking Tobacco: Never Smokeless Tobacco: Never Alcohol Use Standard Drinks/Week Comments No 0 (1 standard drink = 0.6 oz pur e alcohol) PHQ-2 Answer Date Recorded PHQ-2 Total Score (If total score is 3 or more points, staff should administer the PHQ-9) 0 09/10/2023 Comments No Sex and Gender Information Value Date Recorded Sex Assigned at Not on file 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
--- OUTSIDE RECORDS SUMMARY | 2024-09-19 06:10 | XMS_ITS | Encounter Summary ---
Author Organization [facility] Address [address] [place] [address] Care Team Providers Care Orthopedic Shoe Fitter Name Role Phone Kailee Ramirez MD Primary Care Provider [phone] Reason for Visit * Reason Onset Date Comments Referral Request 09/24/2022 Encounter Details Date Type Department Care Team (Late st Contact Info) Description 09/24/2022 Telephone [facility] [address] [place] [address] Kailee Ramirez MD [address] [place] [address] [address] [place] [address] Referral Request Social History Tobacco Use Types Packs/Day Years Used Date Smoking Tobacco: Never Smokeless Tobacco: Never Alcohol Use Standard Drinks/Week Comments No 0 (1 standard drink = 0.6 oz pur e alcohol) PHQ-2 Answer Date Recorded PHQ-2 Total Score (If total score is 3 or more points, staff should administer the PHQ-9) 0 07/03/2022 Comments No Sex and Gender Information Value Date Recorded Sex Assigned at Not on file 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 Sex 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 Gender Identity Not on file Sexual Orientation Not on file documented as of this encounter Miscellaneous Notes * Telephone Encounter - Sandi Iyer - 09/24/2022 12:37 PM CST Referral Provider Name (if patient is seeing a nurse practitioner or physician child care center assistant director, list the TEXTILE PIN WORKER/PA, but also their collaborating doctor): Lilia Archer Specialty: Orthopedics Address: [address], Zip: [place] [address] Diagnosis Code/Symptom/Reason Patient is being seen: S62.91 XA Hand fracture Date of Appointment: 09/24/22 NPI#: [id number] Tax ID#: [id number] Is insurance in chart up to date? Yes Caller???s Callback #: [phone], Christina Additional Comments: Please make sure to date the referral for today, 09/24/22. Does message need to be routed?Yes-Action Needed IMEDIA PROJECT MANAGER documented in this encounter Plan of Treatment Not on file documented as of this encounter Visit Diagnoses Not on filedocumented in this encounter Care Teams Orthopedic Shoe Fitter Relationship Specialty Start Date End Date Kailee Ramirez MD [address] [place] [address] DR [address] [address] PCP - General 12/06/16 06/29/23 documented as of this encounter
--- OUTSIDE RECORDS SUMMARY | 2024-09-19 06:10 | XMS_ITS | Encounter Summary ---
Author Organization [facility] Address [address] [place] [address] Care Team Providers Care Credit Cashier Name Role Phone Kailee Ramirez MD Primary Care Provider [phone] Reason for Visit * Reason Onset Date Comments -Insurance Referral Request 06/24/2019 Encounter Details Date Type Department Care Team (Late st Contact Info) Description 06/24/2019 Telephone [facility] at the [address] [place] [address] Kailee Ramirez MD [address] [place] [address] [address] [place], [place] [id number] -Insurance Referral Request Social History Tobacco Use Types Packs/Day Years Used Date Smoking Tobacco: Never Smokeless Tobacco: Never Alcohol Use Standard Drinks/Week Comments No 0 (1 standard drink = 0.6 oz pur e alcohol) PHQ-2 Answer Date Recorded PHQ-2 Score 0 05/01/2019 Comments No Sex and Gender Information Value Date Recorded Sex Assigned at Not on file Legal Sex Female 1:21 AM NETWORK ARCHITECT Gender Identity Not on file Sexual Orientation Not on file documented as of this encounter Miscellaneous Notes * Telephone Encounter - Aura Murray MA - 06/24/2019 2:27 PM CDT Insurance referral completed, scanned and faxed * Telephone Encounter - Aura Ham MA - 06/24/2019 12:01 PM CDT Buck Chavarria Thank you * Telephone Encounter - Balbina Summers - 06/24/2019 11:43 AM CDT Referral: Provider Name: Song Armando Speciality: GI Address: [address] [place] [address], Zip: [place] [address] Diagnosis Code/Symptom/Reason Patient is being seen: D12.6 and Z12.11 Current Procedural Terminology (CPT) Code (if available): 16822, 72071, 496[address] and [address] Date of Appointment: 07/01/2019 NPI#: [id number] Tax ID#: [id number] Is patient's insurance on file: Yes Caller's Callback #: [phone] Additional Comments:appt time @ 3:15 Did you relay expectation for processing (up to 72 hours)? yes documented in this encounter Plan of Treatment Not on file documented as of this encounter Visit Diagnoses Not on filedocumented in this encounter Care Teams Credit Cashier Relationship Specialty Start Date End Date Kailee Ramirez MD [address] [place] [address] DR Walls [address] [address] PCP - General 12/06/16 06/29/23 documented as of this encounter
--- OUTSIDE RECORDS SUMMARY | 2024-09-19 06:10 | XMS_ITS | Encounter Summary ---
Author Organization [facility] Address [address] [place] [address] Care Team Providers Care Business Broker Name Role Phone Kailee Ramirez MD Primary Care Provider [phone] Encounter Details Date Type Department Care Team (Late st Contact Info) Description 09/11/2021 1:25 PM SALES ESTIMATOR Lab [address] [address] Social History Tobacco Use Types Packs/Day Years [...] on file Legal Sex Female 1:21 AM SALES ESTIMATOR Gender Identity Not on file Sexual Orientation Not on file documented as of this encounter Plan of Treatment Not on file documented as of this encounter Visit Diagnoses Not on filedocumented in this encounter Care Teams Business Broker Relationship Specialty Start Date End Date Kailee Ramirez MD [address] [place] [address] [address]s [address] [address] PCP - General 12/06/16 06/29/23 documented as of this encounter
--- OUTSIDE RECORDS SUMMARY | 2024-09-19 06:10 | XMS_ITS | Encounter Summary ---
Author Organization [facility] Address [address] [place] [address] Care Team Providers Care Hadoop Software Engineer Name Role Phone Herb Ramirez MD Primary Care Provider [phone] Encounter Details Date Type Department Care Team (Late st Contact Info) Description 04/10/2017 2:28 PM CDT - 04/10/2017 11:59 PM [facility] Hospital Encounter [facility] [phone] Herb Ramirez MD [address] [facility] [address] Walls [address] [id number] Discharge Disposition: Discharge to home or self care Social History Tobacco Use Types Packs/Day Years Used Date Smoking Tobacco: Never Alcohol Use Standard Drinks/Week Comments No 0 (1 standard drink = 0.6 oz pur e alcohol) Comments Unknown Sex and Gender Information Value Date Recorded Sex Assigned at Not on file Legal Sex Female 1:21 AM PERFORMANCE IMPROVEMENT ANALYST Gender Identity Not on file Sexual Orientation Not on file documented as of this encounter Medications at Time of Discharge multivitamin tablet tablet take 1 tablet by oral route every day with food 0 0 11/05/2016 cetirizine (ZyrTEC) 10 mg tablet take 1 tablet by oral route every day 0 0 02/20/2016 9 cholecalciferol (VITAMIN D3) 1,000 unit capsule 1 tablet by mouth daily 0 07/15/2012 1 fluticasone (FLONASE) 50 mcg/actuation nasal spray spray 1 spray by intranasal route every day in each nostril 1 Inhaler 3 02/20/2016 9 lisinopril (PRINIVIL,ZESTRI L) 5 mg tablet TAKE ONE TABLET BY MOUTH ONCE DAILY 90 1 12/04/2011 7 omeprazole (PriLOSEC) 20 mg capsule take 1 capsule by oral route every day before a meal 30 3 02/20/2016 9 triamterene-hydr oCHLOROthiazide (MAXZIDE-25MG) 37.5-25 mg per tablet TAKE ONE TABLET BY MOUTH ONCE DAILY 90 1 12/04/2011 7 documented as of this encounter Discharge Disposition Disposition Code Departure Means Destination Discharge to home or self care documented in this encounter Plan of Treatment Not on file documented as of this encounter Procedures Procedure Name Priority Date/Time Associated Diagnosis Comments MAMMOGRAPHY, TOMOGRAPHY, BILATERAL Routine 04/10/2017 7:58 PM CDT documented in this encounter Results * MAMMOGRAPHY, TOMOGRAPHY, BILATERAL (04/10/2017 7:58 PM CDT) Anatomical Region Laterality Modality Bilateral Mammography 04/10/2017 7:58 PM CDT Narrative 04/10/2017 7:58 PM CDT LUCIA AVERY M.D. FINAL REPORT ACC# ??Date Time ??Exam [id number] Apr 10, 2017 14:58:00 [facility] [id number] Scr Mamm sallie 2v w/LOVE ?? Technologist(s): jerson Tejeda; ; EXAMINATION: ??Mammogram Technique: Bilateral Digital Breast Tomosynthesis, Bilateral C-view 2D Screening mammogram. ??Views obtained: ??bilateral craniocaudal and bilateral mediolateral oblique. ??Computer Aided Detection was performed. Mammogram Findings: The present examination has been compared to prior imaging studies performed at [facility] on 04/11/2014, 05/25/2015 and 04/25/2016. There are scattered areas of fibroglandular density. There is an equal density, oval mass measuring 6 millimeters with circumscribed and obscured margins and associated focal asymmetry in the posterior lateral area of the right breast located 10 centimeters from the nipple. There is no suspicious abnormality in the left breast. IMPRESSION: ??Mass in the right breast requires additional evaluation. Additional views are recommended. OVERALL FINAL ASSESSMENT: BI-RADS CATEGORY 0: ??Incomplete: ??Need additional imaging evaluation. Requested By: REFERRAL,SELF ?? Dictated By: ?? LUCIA AVERY M.D. ??on Apr ??2016 ??2:37P This document has been electronically signed by: LUCIA AVERY M.D. on Apr ??2016 ??2:37P [id number] AVERY M.D. FINAL REPORT Attending: ??MARISOL, ??HERB Requesting: ??REFERRAL, ??SELF Requesting Fax: ?? Attending Fax: ?? Attending ID: ??[id number] Requesting ID: ??[id number] Report To 1 ID: ??[id number] ? Report To 1 Name: ??, ?? Report To 1 FAX: ?? NextGen Order #: ?? Procedure Note Miscellaneous, Not In File - 07/03/2017 ULCIA AVERY M.D. FINAL REPORT ACC# Date Time Exam [id number] Apr 10, 2017 14:58:00 [facility] [id number] Scr Mamm sallie 2v w/LOVE Technologist(s): jerson Tejeda; ; EXAMINATION: Mammogram Technique: Bilateral Digital Breast Tomosynthesis, Bilateral C-view 2D Screening mammogram. Views obtained: bilateral craniocaudal and bilateral mediolateral oblique. Computer Aided Detection was performed. Mammogram Findings: The present examination has been compared to prior imaging studies performed at [facility] on 04/11/2014, 05/25/2015 and 04/25/2016. There are scattered areas of fibroglandular density. There is an equal density, oval mass measuring 6 millimeters with circumscribed and obscured margins and associated focal asymmetry in the posterior lateral area of the right breast located 10 centimeters fromthe nipple. There is no suspicious abnormality in the left breast. IMPRESSION: Mass in the right breast requires additional evaluation. Additional views are recommended. OVERALL FINAL ASSESSMENT: BI-RADS CATEGORY 0: Incomplete: Need additional imaging evaluation. Requested By: REFERRAL,SELF Dictated By: LUCIA AVERY M.D. on Apr 14 2017 2:37P This document has been electronically signed by: LUCIA AVERY M.D. on Apr 14 2017 2:37P [id number] AVERY M.D. FINAL REPORT Attending: HERB RAMIREZ Requesting: REFERRAL, SELF Requesting Fax: Attending Fax: Attending ID: [id number] Requesting ID: [id number] Report To 1 ID: [id number] Report To 1 Name: , Report To 1 FAX: NextGen Order #: us Physician No IMG MAMMO PROCEDURES Edited Resu lt - Final documented in this encounter Visit Diagnoses Not on filedocumented in this encounter Care Teams Hadoop Software Engineer Relationship Specialty Start Date End Date Herb Ramirez MD [facility] DR Titi ABBOTT [address] [place] [id number] PCP - General 12/06/16 06/29/23 documented as of this encounter
--- OUTSIDE RECORDS SUMMARY | 2024-09-19 06:10 | XMS_ITS | Encounter Summary ---
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 Role Phone Kailee Ramirez MD Primary Care Provider [phone] Reason for Referral * Diagnostic Imaging (Routine) - Closed Specialty Diagnoses / Procedures Referred By Ronny hastings Referred To Contact Diagnoses Asymptomatic menopause Procedures Dexa Axial Skeleton Bone Density 1 or 2 Site Kailee Ramirez MD [address] [place], [place] [address] [place] [address] Phone: tel: fax: [facility] Referral ID Status Reason Start Date Expiration Date Visits Re quested Visits Authorized [id number] Closed 01/01/2023 01/31/2024 1 1 Reason for Visit * Reason Comments Hypertension Encounter Details Date Type Department Care Team (Late st Contact Info) Description 01/01/2023 10:45 AM CDT Office Visit [facility] [address] [place] [address] Kailee Ramirez MD [address] [place], [place] [address] [place] [address] Asymptomatic menopause (Primary Dx); Essential hypertension; Anemia, unspecified type; Hyperproteinemia Social History Tobacco Use Types Packs/Day Years Used Date Smoking Tobacco: Never Smokeless Tobacco: Never Tobacco Cessation:Counseling Given: Not Answered Alcohol Use Standard Drinks/Week Comments No 0 (1 standard drink = 0.6 oz pur e alcohol) PHQ-2 Answer Date Recorded PHQ-2 Total Score (If total score is 3 or more points, staff should administer the PHQ-9) 0 01/01/2023 Comments No Sex and Gender Information Value Date Recorded Sex Assigned at Not on file 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 Gender Identity Not on file Sexual Orientation Not on file documented as of this encounter Last Filed Vital Signs Vital Sign Reading Time Taken Comments Blood Pressure 126/82 01/01/2023 10:30 AM CDT Pulse 76 01/01/2023 10:30 AM CDT Temperature - - Respiratory Rate 18 01/01/2023 10:30 AM CDT Oxygen Saturation 97% 01/01/2023 10:30 AM CDT Inhaled Oxygen Concentration - - Weight 78 kg (172 lb) 01/01/2023 10:30 AM CDT Height 167.6 cm (5' 6 ) 01/01/2023 10:30 AM CDT Body Mass Index 27.76 01/01/2023 10:30 AM CDT documented in this encounter Progress Notes * Kailee Ramirez MD - 01/01/2023 10:45 AM CDT Subjective/Objective Patient ID: Niraj Antonio is a 72 y.o. female. Chief Complaint Patient presents with Hypertension HPI: She feels well She is here for follow up on the BP She does not check at home She has no headache, dizziness, chest pain or shortness of breath She has no edema She is eating a heathy diet She is doing some walking for exercise Hypertension This is a chronic problem. The current episode started more than 1 year ago. The problem is unchanged. The problem is controlled. Pertinent negatives include no chest pain, headaches, neck pain or shortness of breath. There are no associated agents to hypertension. Past treatments include ROSALIND inhibitors. The current treatment provides significant improvement. There are no compliance problems. Current Outpatient Medications Medication Sig Dispense Refill lisinopriL (PRINIVIL,ZESTRIL) 5 mg tablet TAKE 1 TABLET BY MOUTH EVERY DAY 90 tablet 0 multivitamin tablet tablet take 1 tablet by oral route every day with food 0 0 nutritional supplements liquid Take by mouth. triamterene-hydroCHLOROthiazide 37.5-25 mg per tablet/capsule Take 1 tablet/capsule by mouth daily 90 tablet 1 No current facility-administered medications for this visit. Review of Systems Constitutional: Negative for chills, fatigue and fever. HENT: Negative for trouble swallowing. Eyes: Negative for visual disturbance. Respiratory: Negative for cough and shortness of breath. Cardiovascular: Negative for chest pain and leg swelling. Gastrointestinal: Negative for abdominal pain, nausea and vomiting. Genitourinary: Negative for frequency, hematuria and urgency. Musculoskeletal: Negative for arthralgias and neck pain. Skin: Negative for rash. Neurological: Negative for dizziness, syncope and headaches. Psychiatric/Behavioral: Negative for sleep disturbance. Vitals BP 126/82 Pulse 76 Resp 18 Ht 167.6 cm (5' 6 ) Wt 78 kg (172 lb) SpO2 97% BMI 27.76 kg/m?? Physical Exam Constitutional: Appearance: She is [...] Diagnoses and all orders for this visit: Asymptomatic menopause (Primary) - Dexa Axial Skeleton Bone Density 1 or 2 Site; Future Essential hypertension Assessment & Plan: Hypertension is well controlled with lifestyle changes and medication Blood Pressure Follow-up: Lifestyle modifications education provided on sodium reduction, increase physical activity and weight reduction Current medication will be continued Will reassess in 6 months. Orders: - CBC with auto differential; Future - Comprehensive metabolic panel (Outreach); Future Anemia, unspecified type - CBC with auto differential; Future Hyperproteinemia Comments: will need to assess for monoclonal gammopathy Orders: - Comprehensive metabolic panel (Outreach); Future - Protein electrophoresis with reflex, serum; Future documented in this encounter Miscellaneous Notes * Assessment & Plan Note - Kailee Ramirez MD - 01/01/2023 12:43 PM CDT Associated Problem(s): Essential hypertension Hypertension is well controlled with lifestyle changes and medication Blood Pressure Follow-up: Lifestyle modifications education provided on sodium reduction, increase physical activity and weight reduction Current medication will be continued Will reassess in 6 months. documented in this encounter Plan of Treatment Not on file documented as of this encounter Results * Dexa Axial Skeleton Bone Density 1 or 2 Site (01/01/2023 11:56 AM CDT) Anatomical Region Laterality Modality Body N/A Digital Radiogra phy 01/01/2023 1:38 PM CDT Impressions 01/01/2023 2:42 PM CDT ?? 1. The bone mineral density of the lumbar spine is mildly decreased. There has been a statistically significant increase in bone mineral density since the baseline examination of 12/20/2020. 2. The bone mineral density of the left femoral neck is mildly decreased. There has been a statistically significant decrease in bone mineral density since the baseline examination of 12/20/2020. 3. The bone mineral density of the left total hip is mildly decreased. There has been no significant change in bone mineral density since the baseline examination of 12/20/2020. 4. Overall, the above findings are diagnostic of low bone mass (osteopenia) by WHO criteria. 5. Based on the FRAX fracture risk model, the 10-year probability for major osteoporotic fracture is 4.8% and that for hip fracture is 0.8%. This 10-year fracture risk estimate was calculated using the risk factors noted in the history above, along with the femoral neck bone density. ??FRAX is intended to help guide treatment decisions in men over age 50 and postmenopausal women with low bone mass (osteopenia). The National Osteoporosis Foundation (NOF) recommends that FDA-approved medical therapies be considered in postmenopausal women and men age 50 years and older with osteoporosis and those with low bone mass whose 10-year fracture probability by FRAX is >= 20% for major osteoporotic fracture or >= 3% for hip fracture. However, all treatment decisions require clinical judgment and consideration of individual patient factors, ??including patient preferences, comorbidities, previous drug use, risk factors not captured in the FRAX model (e.g., frailty, falls, vitamin D deficiency, increased bone turnover, interval significant decline in bone density) and possible under- or overestimation of fracture risk by FRAX. General comments regarding interpretation of bone density measurements: A) ??In children, premenopausal woman and males under age 50 not at increased risk for fractures only Z-scores, not T-scores are used to indicate risk. ??A Z-score above -2.0 is defined as within the expected range for age and Z-score at or less than -2.0 is below the expected range for age . ??A Z-score below the expected range for age in a patient with recent fractures and/or chronic corticosteroid treatment is consistent with a diagnosis of osteoporosis. B) ??In post menopausal women and males over 50, comparison of the measured bone mineral density with the average value in young normal subjects (the T-score ) has been found to be useful in assessing fracture risk. ??Fracture risk approximately doubles for each 1.0 standard deviation (SD) in individual's hip or spine bone mineral density is below the average value of young normal subjects. ??The World Health Organization (WHO) has defined T-scores of -1.0 to -2.5 as diagnostic of low bone mass (OSTEOPENIA), and T-scores of -2.5 or lower to be diagnostic of OSTEOPOROSIS, based on the site of lowest bone density. Note that there will be a change in reporting format and reference databases as patients move from the younger population (group A) to the older population (group B) The National Osteoporosis Foundation (www.nof.org) recommends adequate intake of calcium and vitamin D and regular weight-bearing exercise in all patients. ??They recommend pharmacologic treatment in postmenopausal women and men age 50 and older presenting with any of the following: ? 1) ? Osteoporosis, after appropriate evaluation to exclude secondary causes. ? 2) ? A hip or vertebral (clinical or radiographic) fracture, regardless of the bone density. ? 3) ? Low bone mass (Osteopenia) and one or more of: other prior fractures, secondary causes associated with high risk of fracture (such as glucocorticoid use or total immobilization), or computed high risk of fracture (10-yr probability of hip fracture >= 3% or a 10-yr probability of any major osteoporosis-related fracture >= 20% based on the [place].-adapted WHO algorithm), available at http://www.shef.ac.uk/FRAX). Dictated by: Calderon Rodriguez MD The radiology attending physician has personally reviewed this study, and had reviewed and/or edited this written report and agrees with it. Electronically signed by: Jason Cowan M.D. Narrative 01/01/2023 2:42 PM CDT BONE DENSITOMETRY OF THE SPINE AND HIP DATE OF STUDY: ??01/01/2023 HISTORY: ??72-year-old postmenopausal woman undergoing osteoporosis screening. ??She is being treated with calcium and vitamin D. Evaluate bone mineral density. Additional risk factors for fracture: none. FINDINGS (SPINE): The bone mineral density of L1-L4 was assessed by dual-energy x-ray absorptiometry. The average bone mineral density within this region is 0.893 gm/sq-cm. This is 0.2 standard deviations above the mean of the average bone mineral density for age- and gender-matched subjects (the Z-score). It is 1.4 standard deviations below the mean peak bone mineral density in young adults (the T-score). FINDINGS (FEMORAL NECK): The bone mineral density of the left femoral neck was assessed by dual-energy x-ray absorptiometry. The average bone mineral density within the femoral neck region is 0.673 gm/sq-cm. This is 0.4 standard deviations below the mean of the average bone mineral density for age- and gender-matched subjects (the Z-score). It is 1.6 standard deviations below the mean peak bone mineral density in young adults (the T-score). FINDINGS (TOTAL HIP): The bone mineral density of the left hip was assessed by dual-energy x-ray absorptiometry. The average bone mineral density within the total hip region is 0.787 gm/sq-cm. This is 0.3 standard deviations below the mean of the average bone mineral density for age- and gender-matched subjects (the Z-score). It is 1.3 standard deviations below the mean peak bone mineral density in young adults (the T-score). SUMMARY OF CURRENT RESULTS: Region ? BMD ?T-score ??Z-score ?? AP Spine (L1-L4) ? 0.893 ?? -1.4 ?0.2 ? Femoral Neck (Left) ?0.673 ?? -1.6 ? -0.4 ? Total Hip (Left) ? 0.787 ?? -1.3 ? -0.3 ? COMPARISON WITH PREVIOUS RESULTS Region ? Age ??BMD ?? T-score ??BMD Change ? BMD Change Exam Date ? g/cm2 ?vs Baseline ?vs Previous AP Spine (L1-L4) 01/01/2023 ??72 ?0.893 ?-1.4 ? 2.7%* ? 2.7%* 12/20/2020 ??70 ?0.870 ?-1.6 ? Femoral Neck(Left) 01/01/2023 ??72 ?0.673 ?-1.6 ?-4.5%# ?-4.5%# 12/20/2020 ??70 ?0.705 ?-1.3 ? Total Hip(Left) 01/01/2023 ??72 ?0.787 ?-1.3 ?-3.2%# ?-3.2%# 12/20/2020 ??70 ?0.813 ?-1.1 ? *Denotes significance at 95% confidence level # Denotes dissimilar scan types or analysis methods Procedure Note Jason Cowan MD - 01/01/2023 BONE DENSITOMETRY OF THE SPINE AND HIP DATE OF STUDY: 01/01/2023 HISTORY: 72-year-old postmenopausal woman undergoing osteoporosis screening. She is being treated with calcium and vitamin D. Evaluate bone mineral density. Additional risk factors for fracture: none. FINDINGS (SPINE): The bone mineral density of L1-L4 was assessed by dual-energy x-ray absorptiometry. The average bone mineral density within this region is 0.893 gm/sq-cm. This is 0.2 standard deviations above the mean of the average bone mineral density for age- and gender-matched subjects (the Z-score). It is 1.4 standard deviations below the mean peak bone mineral density in young adults (the T-score). FINDINGS (FEMORAL NECK): The bone mineral density of the left femoral neck was assessed by dual-energy x-ray absorptiometry. The average bone mineral density within the femoral neck region is 0.673 gm/sq-cm. This is 0.4 standard deviations below the mean of the average bone mineral density for age- and gender-matched subjects (the Z-score). It is 1.6 standard deviations below the mean peak bone mineral density in young adults (the T-score). FINDINGS (TOTAL HIP): The bone mineral density of the left hip was assessed by dual-energy x-ray absorptiometry. The average bone mineral density within the total hip region is 0.787 gm/sq-cm. This is 0.3 standard deviations below the mean of the average bone mineral density for age- and gender-matched subjects (the Z-score). It is 1.3 standard deviations below the mean peak bone mineral density in young adults (the T-score). SUMMARY OF CURRENT RESULTS: Region BMD T-score Z-score AP Spine (L1-L4) 0.893 -1.4 0.2 Femoral Neck (Left) 0.673 -1.6 -0.4 Total Hip (Left) 0.787 -1.3 -0.3 COMPARISON WITH PREVIOUS RESULTS Region Age BMD T-score BMD Change BMD Change Exam Date g/cm2 vs Baseline vs Previous AP Spine (L1-L4) 01/01/2023 72 0.893 -1.4 2.7%* 2.7%* 12/20/2020 70 0.870 -1.6 Femoral Neck(Left) 01/01/2023 72 0.673 -1.6 -4.5%# -4.5%# 12/20/2020 70 0.705 -1.3 Total Hip(Left) 01/01/2023 72 0.787 -1.3 -3.2%# -3.2%# 12/20/2020 70 0.813 -1.1 *Denotes significance at 95% confidence level # Denotes dissimilar scan types or analysis methods IMPRESSION: 1. The bone mineral density of the lumbar spine is mildly decreased. There has been a statistically significant increase in bone mineral density since the baseline examination of 12/20/2020. 2. The bone mineral density of the left femoral neck is mildly decreased. There has been a statistically significant decrease in bone mineral density since the baseline examination of 12/20/2020. 3. The bone mineral density of the left total hip is mildly decreased. There has been no significant change in bone mineral density since the baseline examination of 12/20/2020. 4. Overall, the above findings are diagnostic of low bone mass (osteopenia) by WHO criteria. 5. Based on the FRAX fracture risk model, the 10-year probability for major osteoporotic fracture is 4.8% and that for hip fracture is 0.8%. This 10-year fracture risk estimate was calculated using the risk factors noted in the history above, along with the femoral neck bone density. FRAX is intended to help guide treatment decisions in men over age 50 and postmenopausal women with low bone mass (osteopenia). The National Osteoporosis Foundation (NOF) recommends that FDA-approved medical therapies be considered in postmenopausal women and men age 50 years and older with osteoporosis and those with low bone mass whose 10-year fracture probability by FRAX is >= 20% for major osteoporotic fracture or >= 3% for hip fracture. However, all treatment decisions require clinical judgment and consideration of individual patient factors, including patient preferences, comorbidities, previous drug use, risk factors not captured in the FRAX model (e.g., frailty, falls, vitamin D deficiency, increased bone turnover, interval significant decline in bone density) and possible under- or overestimation of fracture risk by FRAX. General comments regarding interpretation of bone density measurements: A) In children, premenopausal woman and males under age 50 not at increased risk for fractures only Z-scores, not T-scores are used to indicate risk. A Z-score above -2.0 is defined as within the expected range for age and Z-score at or less than -2.0 is below the expected range for age . A Z-score below the expected range for age in a patient with recent fractures and/or chronic corticosteroid treatment is consistent with a diagnosis of osteoporosis. B) In post menopausal women and males over 50, comparison of the measured bone mineral density with the average value in young normal subjects (the T-score ) has been found to be useful in assessing fracture risk. Fracture risk approximately doubles for each 1.0 standard deviation (SD) in individual's hip or spine bone mineral density is below the average value of young normal subjects. The World Health Organization (WHO) has defined T-scores of -1.0 to -2.5 as diagnostic of low bone mass (OSTEOPENIA), and T-scores of -2.5 or lower to be diagnostic of OSTEOPOROSIS, based on the site of lowest bone density. Note that there will be a change in reporting format and reference databases as patients move from the younger population (group A) to the older population (group B) The National Osteoporosis Foundation (www.nof.org) recommends adequate intake of calcium and vitamin D and regular weight-bearing exercise in all patients. They recommend pharmacologic treatment in postmenopausal women and men age 50 and older presenting with any of the followin) Osteoporosis, after appropriate evaluation to exclude secondary causes. 2) A hip or vertebral (clinical or radiographic) fracture, regardless of the bone density. 3) Low bone mass (Osteopenia) and one or more of: other prior fractures, secondary causes associated with high risk of fracture (such as glucocorticoid use or total immobilization), or computed high risk of fracture (10-yr probability of hip fracture >= 3% or a 10-yr probability of any major osteoporosis-related fracture >= 20% based on the [place].-adapted WHO algorithm), available at http://www.shef.ac.uk/FRAX). Dictated by: Calderon Rodriguez MD The radiology attending physician has personally reviewed this study, and had reviewed and/or edited this written report and agrees with it. Electronically signed by: Jason Cowan M.D. Kailee Ramirez MD IMG DXA PROCEDURES Final Res ult * (ABNORMAL) Protein electrophoresis with reflex, serum (01/01/2023 11:04 AM CDT) Protein, sr 8.7(H) 6.2 - 8.2 g/dL [facility] Albumin 3.9 3.2 - 5.0 g/dL [facility] Alpha-1 globulin 0.3 0.2 - 0.4 g/dL [facility] Alpha-2 globulin 1.1(H) 0.5 - 1.0 g/dL [facility] Beta-1 globulin 0.4 0.3 - 0.6 g/dL [facility] Beta-2 globulin 0.6 0.2 - 0.6 g/dL [facility] Gamma globulin 2.4(H) 0.5 - 1.7 g/dL [facility] interp Please see comment [facility] Comment: No apparent monoclonal peak Polyclonal increase in gamma globulins Electrophoretic pattern appears similar to previous sample 09/12/21 Last Immunotyping >1 year Reviewed and signed by David Zhao MD, PhD 01/02/2023 Blood 01/01/2023 11:0 4 AM CDT 01/01/2023 2:27 PM CDT Kailee Ramirez MD LAB BLOOD ORDERABLES Final R esult Performing Organization Address City/State/[facility] Co de Phone Number [facility] [place] [address] * (ABNORMAL) CBC with auto differential (01/01/2023 11:04 AM CDT) [facility] Signature WBC 6.9 3.8 - 9.9 K/cumm [facility] Hgb 11.7(L) 11.9 - 15.5 g/dL [facility] Hct 37.0 35.6 - 45.5 % [facility] Plt 304 150 - 400 K/cumm [facility] MPV 9.6 9.1 - 12.3 fL [facility] RBC 4.30 3.90 - 5.20 M/cumm [facility] MCV 86.0 81.3 - 96.4 fL [facility] MCH 27.2 27.1 - 33.3 pg [facility] MCHC 31.6(L) 32.3 - 35.7 g/dL [facility] RDW CV 13.9 11.1 - 14.9 % [facility] RDW SD 43.4 35.7 - 48.1 fL [facility] NRBC abs 0.00 0.00 - 0.01 K/cumm [facility] Blood 01/01/2023 11:0 4 AM CDT 01/01/2023 2:27 PM CDT us Kailee Ramirez MD LAB BLOOD ORDERABLES Final R esult Performing Organization Address City/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
--- OUTSIDE RECORDS SUMMARY | 2024-09-19 06:10 | XMS_ITS | Encounter Summary ---
Author Organization [facility] Healthcare Address [address] [place] [address] Care Team Providers Care Tie Tape Machine Operator Name Role Phone Kailee Ramirez MD Primary Care Provider [phone] Reason for Referral * Cardiology (Routine) - Closed Specialty Diagnoses / Procedures Referred By Ronny hastings Referred To Contact Diagnoses Chest pain, unspecified type Procedures ECG 12 lead Kailee Ramirez MD [address] [place], [place] [address]CARISSA ABBOTT [address] [place] [address] Phone: tel: fax: [address] [phone] Referral ID Status Reason Start Date Expiration Date Visits Re quested Visits Authorized [id number] Closed 06/25/2021 07/25/2022 1 1 Reason for Visit * Cardiology (Routine) - Closed Specialty Diagnoses / Procedures Referred By Ronny hastings Referred To Contact Diagnoses Chest pain, unspecified type Procedures ECG 12 lead Kailee Ramirez MD [address] [place], [place] [address]CARISSA ABBOTT [address] [place] [address] Phone: tel: fax: [address] [phone] Referral ID Status Reason Start Date Expiration Date Visits Re quested Visits Authorized [id number] Closed 06/25/2021 07/25/2022 1 1 Encounter Details Date Type Department Care Team (Late st Contact Info) Description 06/25/2021 2:00 PM CDT - 06/25/2021 11:59 PM CDT Hospital Encounter [facility] [address] [place] [address] Kailee Ramirez MD [address] [place] [address] [address] Chest pain, unspecified type Discharge Disposition: Discharge to home or self [...] on file 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 lisinopriL (PRINIVIL,ZESTRIL) 5 mg tablet Take 1 tablet (5 mg total) by mouth daily 90 tablet 2 12/20/2020 11/10/2021 triamterene-hydroC HLOROthiazide (triamterene-hydro CHLOROthiazide) 37.5-25 mg per tablet/capsule Take 1 tablet/capsu le by mouth daily 90 tablet 1 12/20/2020 08/12/2021 documented as of this encounter Discharge Disposition Disposition Code Departure Means Destination Discharge to home or self care documented in this encounter Plan of Treatment Not on file documented as of this encounter Procedures Procedure Name Priority Date/Time Associated Diagnosis Comments ECG 12-LEAD Routine 06/25/2021 2:45 PM CDT Chest pain, unspecified type documented in this encounter Results * ECG 12 lead (06/25/2021 2:45 PM CDT) Ventricular Rate EKG/Min [address] [facility] Atrial Rate 71 BPM [facility] AR-Interval (MSEC) 158 ms [facility] QRS-Interval (MSEC) 84 ms [facility] QT-Interval (MSEC) 392 ms [facility] QTc 425 ms [facility] P [place] [address] [facility] R [place] -[address] [facility] T [place] -28 degrees [facility] Diagnosis Sinus rhythm with occasional Premature ventricular complexes Moderate voltage criteria for LVH, may be normal variant Nonspecific T wave abnormality Abnormal ECG No previous ECGs available Confirmed by IVONE SANTILLAN M.D ([id number]) on 06/25/2021 7:19:39 PM [facility] 06/25/2021 2:45 PM CDT 06/25/2021 7:19 PM CDT us Kailee Ramirez MD ECG ORDERABLES Final Result [facility] documented in this encounter Visit Diagnoses Diagnosis Chest pain, unspecified type documented in this encounter Care Teams Tie Tape Machine Operator Relationship Specialty Start Date End Date Kailee Ramirez MD [facility] [address] Titi ABBOTT [address] [place] [id number] PCP - General 12/06/16 06/29/23 documented as of this encounter
--- OUTSIDE RECORDS SUMMARY | 2024-09-19 06:10 | XMS_ITS | Encounter Summary ---
Author Organization [facility] Healthcare Address [address] [place] [address] Care Team Providers Care Pattern Chain Builder Name Role Phone Kailee Ramirez MD Primary Care Provider [phone] Encounter Details Date Type Department Care Team (Latest Contact Info) Description 07/01/2019 2:08 PM CDT - 07/01/2019 5:03 PM CDT Hospital Encounter [facility] [address] [facility] [address] [place] [address] Song Armando MD PhD [address] 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 Gender Identity Not on file Sexual Orientation Not on file documented as of this encounter Last Filed Vital Signs Vital Sign Reading Time Taken Comments Blood Pressure 158/79 07/01/2019 4:57 PM CDT Pulse 61 07/01/2019 4:57 PM CDT Temperature 36.4 ??C (97.5 ??F) 07/01/2019 4:37 PM CD T Respiratory Rate 22 07/01/2019 4:57 PM CDT Oxygen Saturation 97% 07/01/2019 4:57 PM CDT Inhaled Oxygen Concentration - - Weight 79.4 kg (175 lb) 07/01/2019 3:02 PM CDT Height 167.6 cm (5' 6 ) 07/01/2019 3:02 PM CDT Body Mass Index 28.25 07/01/2019 3:02 PM CDT documented in this encounter Discharge Diagnoses Diagnosis Encounter for screening for malignant neoplasm of colon - ENCOUNTER FOR SCREENING FOR MALIGNANT NEOPLASM OF COLON Polyp of colon - POLYP OF COLON Benign neoplasm of colon Other hemorrhoids - OTHER HEMORRHOIDS Essential (primary) hypertension - ESSENTIAL (PRIMARY) HYPERTENSION Unspecified essential hypertension Personal history of colonic polyps - PERSONAL HISTORY OF COLONIC POLYPS 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 cholecalciferol (VITAMIN D3) 1,000 unit capsule 1 tablet by mouth daily 0 07/15/2012 12/20/2020 lisinopril (PRINIVIL,ZESTRIL) 5 mg tablet Take 1 tablet (5 mg total) by mouth daily 90 tablet 2 05/05/2019 11/10/2019 triamterene-hydroC HLOROthiazide (triamterene-hydro CHLOROthiazide) 37.5-25 mg per tablet/capsule Take 1 tablet/capsu le by mouth daily 90 tablet 2 05/05/2019 11/10/2019 documented as of this encounter Discharge Disposition Disposition Code Departure Means Destination Discharge to home or self care documented in this encounter H&P Notes * Song Armando MD PhD - 07/01/2019 3:50 PM CDT Pre Endoscopy History and Physical Carter Antonio is a 69 y.o. female who is here for Procedure(s): COLONOSCOPY open access The indication(s) for the procedure(s): surveillance colonoscopy (last colonoscopy in 03/2016). Past Medical History: Diagnosis Date ??? Colon polyp ??? History of transfusion ??? Hypertension Past Surgical History: Procedure Laterality Date ??? BREAST BIOPSY Breast biopsy ??? COLONOSCOPY ??? HYSTERECTOMY Hysterectomy ??? POLYPECTOMY ??? UPPER GASTROINTESTINAL ENDOSCOPY Social History Tobacco Use ??? Smoking status: Never Smoker ??? Smokeless tobacco: Never Used Substance Use Topics ??? Alcohol use: No Family History Problem Relation Age of Onset ??? Hypertension Other Family history of Hypertension; ??? Stroke Sister Stroke; ??? Hypertension Father's Brother Hypertension; No Known Allergies Prior to Admission medications Medication Sig Start Date End Date Taking? Authorizing Provider cholecalciferol (VITAMIN D3) 1,000 unit capsule 1 tablet by mouth daily 07/15/12 Yes Kailee Ramirez MD lisinopril (PRINIVIL,ZESTRIL) 5 mg tablet Take 1 tablet (5 mg total) by mouth daily 05/05/19 Yes Kailee Ramirez MD multivitamin tablet tablet take 1 tablet by oral route every day with food 11/05/16 Yes Kailee Ramirez MD nutritional supplements liquid Take by mouth. Yes Historical Provider, triamterene-hydroCHLOROthiazide (triamterene-hydroCHLOROthiazide) 37.5-25 mg per tablet/capsule Take 1 tablet/capsule by mouth daily 05/05/19 Yes Kailee Ramirez MD Review of Systems A pertinent, focused review of systems was completed and negative, except as noted above. OBJECTIVE: Vitals: Vitals: 07/01/19 1502 BP: 162/75 Pulse: 64 Resp: 15 Temp: 36.2 ??C (97.2 ??F) TempSrc: Temporal SpO2: 98% Weight: 79.4 kg (175 lb) Height: 167.6 cm (5' 6 ) Physical Exam: Airway: No significant abnormality. Cardiac: No significant abnormality. Pulmonary: No significant abnormality. Neurological: No significant abnormality. Gastrointestinal: No significant abnormality. ASA Score: per Anesthesia Sedation/Anesthesia Plan: per Anesthesia The risks and complications of the procedure have been explained to the patient. Informed consent was signed. Impression and plan: Will proceed with the planned procedure for the reasons stated above. documented in this encounter Procedure Notes * Song Armando MD PhD - 07/01/2019 4:04 PM CDTAssociated Order(s): COLONOSCOPY [facility]OSCOPY [facility] Patient Name: Carter Antonio Procedure Date: 07/01/2019 4:04 PM Date of : 1950 Admit Type: Outpatient Age: 69 Gender: Female Attending MD: Song Armando MD, PHD Room: [facility] ENDOSCOPY ROOM 5 Note Status: Finalized Procedure: Colonoscopy Indications: High risk colon cancer surveillance: Personal history of multiple (3 or more) adenomas. Last colonoscopy: March 2016. Referring MD: Kailee Ramirez M.D. Providers: Song Armando MD, PHD Comorbidities Hypertension Medicines: Monitored Anesthesia Care Complications: No immediate complications. Estimated Blood Loss: Estimated blood loss was minimal. Procedure: Pre-Anesthesia Assessment: - Immediately prior to administration of medications, the patient was re-assessed for adequacy to receive sedatives. - The risks and benefits of the procedure and the sedation options and risks were discussed with the patient. All questions were answered and informed consent was obtained. The benefits, risks and alternatives of the procedure and sedation were discussed and informed consent was obtained. All questions were answered. Please refer to the signed informed consent document in the medical record. The scope was passed under direct vision. The [id number] endoscope was introduced through the anus and advanced to the cecum, identified by appendiceal orifice and ileocecal valve. The colonoscopy was performed without difficulty. The patient tolerated the procedure well. The quality of the bowel preparation was evaluated using the BBPS ([place] Bowel Preparation Scale) with scores of: Right Colon = 3, Transverse Colon = 3 and Left Colon = 3. The total BBPS score equals 9. The quality of the bowel preparation was excellent. The bowel preparation used was GoLYTELY. The quality of the bowel preparation was excellent. Findings: The perianal and digital rectal examinations were normal. A 3 to 4 mm sessile polyp was found in the descending colon. The polyp was removed with a jumbo cold forceps. Resection and retrieval were complete. Mild, non-bleeding internal hemorrhoids were found during retroflexion. Impression: - One 3 to 4 mm polyp in the descending colon, removed with a jumbo cold forceps. Resected and retrieved. - Non-bleeding internal hemorrhoids. Recommendation: - Await pathology results. - Repeat colonoscopy in 5-10 years for surveillance based on pathology results: 5 years if polyp is adenomatous. Attending Participation: I personally performed the entire procedure. Electronically Signed By: Blue Armando MD Song Armando MD, PHD 07/01/2019 4:34:32 PM . Number of Addenda: 0 Note Initiated On: 07/01/2019 4:04 PM Recognized by the [employer] for promoting quality in endoscopy documented in this encounter Plan of Treatment Scheduled Orders Name Type Priority Associated Diagnoses Orde r Schedule Surgical pathology Pathology and Cytology Routine Colon cancer screening Adenomatous polyp of colon, unspecified part of colon Once (Routine) for 1 Occurrences starting 07/01/2019 documented as of this encounter Procedures Procedure Name Priority Date/Time Associated Diagnosis Comments SURGICAL PATHOLOGY Routine 07/01/2019 4: 26 PM CDT COLON BIOPSY 07/01/2019 4:06 PM CDT Colon cancer screening Adenomatous polyp of colon, unspecified part of colon COLONOSCOPY 07/01/2019 4:04 PM CDT documented in this encounter Results * Surgical pathology (07/01/2019 4:26 PM CDT) 07/01/2019 4:26 PM CDT 07/01/2019 7:11 PM CDT Narrative 07/02/2019 2:54 PM CDT EPIC results best viewed via link to PDF [facility] [place] [address] SURGICAL PATHOLOGY REPORT FINAL Patient Name: ?? CARTER ANTONIO Gender: ??F : ??1950 (Age: 69) Address: ??[address] [place] [id number] Hospital #: ??[id number] Taken:07/01/2019 Received:07/01/2019 Reported: 07/02/2019 Patient Type: [facility] Ref Lab ?? Service: Gastro Location: [facility] Physician(s): ??Song Armando M.D. Kailee Ramirez M.D. Diagnosis: Colon, descending, polyp, biopsy: ? - Hyperplastic polyp, goblet cell type [facility]/07/02/2019 14:10 By this signature, I attest that the above diagnosis is based upon my personal examination of the slides(and/or other material indicated in the diagnosis). Tristian Christianson M.D. Report Electronically Reviewed and Signed Out By ??Tristian Christianson M.D. 07/02/2019 14:54:59 Microscopic Description and Comment: Microscopic examination substantiates the above cited diagnosis. Roger Denis D.O. History: The patient is a 69-year-old woman with colon cancer screening, adenomatous polyp of colon unspecified part. ??Operative procedure: Colon biopsy Specimen(s) Received: A: Cold biopsy descending colon polyp Gross Description: Received in formalin labeled with the patient's name, date of and cold biopsy descending colon polyp and consists of one soft miller-pink tissue fragment measuring 0.4 x 0.2 x 0.1 cm. ??Wrapped and entirely submitted labeled A1. ??Jar 0. arc/07/01/2019 19:38 Patricia Clement MS, PA ([facility]) By this signature, I attest that the above diagnosis is based upon my personal examination of the slides(and/or other material). The performance characteristics of some immunohistochemical stains, fluorescence in-situ hybridization tests and immunophenotyping by flow cytometry cited in this report (if any) were determined by the Surgical Pathology Department at [facility] as part of an ongoing lead quality control technician program and in compliance with federally mandated regulations drawn from the Clinical Laboratory Improvement Act of 1988 (CLIA '88). ??Some of these tests rely on the use of analyte specific reagents and are subject to specific labeling requirements by the US Food and Drug Administration. ??Such diagnostic tests may only be performed in a facility that is certified by the Department of Health and Human Services as a high complexity laboratory under CLIA '88. ??The FDA has determined that such clearance or approval is not necessary. ??This test is used for clinical purposes. ??It should not be regarded as investigational or for research. ??Nevertheless, federal rules concerning the medical use of analyte specific reagents require that the following disclaimer be attached to the report: This test was developed and its performance characteristics determined by the Surgical Pathology Department of [facility]. ??It has not been cleared or approved by the U. S. Food and Drug Administration. IMAGES AND SCANNED DOCUMENTS, IF INCLUDED, ONLY VIEWABLE IN PDF VERSION OF REPORT us Song Armando MD PhD LAB PATHOLOGY ORDERAB LES Final Result * COLONOSCOPY (07/01/2019 4:04 PM CDT) Anatomical Region Laterality Modality Other Narrative Procedure Note Song Armando MD PhD - 07/01/2019 4:04 PM CDT GI [facility]OSCOPY [facility] Patient Name: Carter Antonio Procedure Date: 07/01/2019 4:04 PM Date of : 1950 Admit Type: Outpatient Age: 69 Gender: Female Attending MD: Song Armando MD,PHD Room: [facility] ENDOSCOPY ROOM 5 Note Status: Finalized Procedure: Colonoscopy Indications: High risk colon cancer surveillance: Personalhistory of multiple (3 or more) adenomas. Last colonoscopy: March 2016. Referring MD: Kailee Ramirez M.D. Providers: Song Armando MD, PHD Comorbidities Hypertension Medicines: Monitored Anesthesia Care Complications: No immediate complications. Estimated Blood Loss: Estimated blood loss was minimal. Procedure: Pre-Anesthesia Assessment: - Immediately prior to administration ofmedications, the patient was re-assessed for adequacy to receive sedatives. - The risks and benefits of the procedure and the sedation options and risks were discussed with the patient. All questions were answered and informed consent was obtained. The benefits, risks and alternatives of theprocedure and sedation were discussed and informed consent was obtained. All questions were answered. Please referto the signed informed consent document in the medical record. The scope was passed under direct vision.The [id number] endoscope was introduced throughthe anus and advanced to the cecum, identified by appendiceal orifice and ileocecal valve. The colonoscopy was performed without difficulty. The patient tolerated the procedure well. The quality of the bowel preparation was evaluated using the BBPS ([place] Bowel Preparation Scale) with scores of:Right Colon = 3, Transverse Colon = 3 and Left Colon = 3.The total BBPS score equals 9. The quality of the bowel preparation was excellent. The bowel preparationused was GoLYTELY. The quality of the bowel preparationwas excellent. Findings: The perianal and digital rectal examinations were normal. A 3 to 4 mm sessile polyp was found in the descending colon. Thepolyp was removed with a jumbo cold forceps. Resection and retrieval were complete. Mild, non-bleeding internal hemorrhoids were found duringretroflexion. Impression: - One 3 to 4 mm polyp in the descending colon,removed with a jumbo cold forceps. Resected and retrieved. - Non-bleeding internal hemorrhoids. Recommendation: - Await pathology results. - Repeat colonoscopy in 5-10 years for surveillance based on pathology results: 5 years if polyp is adenomatous. Attending Participation: I personally performed the entire procedure. Electronically Signed By: Blue Armando MD Song Armando MD, PHD 07/01/2019 4:34:32 PM . Number of Addenda: 0 Note Initiated On: 07/01/2019 4:04 PM Recognized by the [employer] for promoting quality in endoscopy Song Armando MD PhD ENDOSCOPY PROCEDURES Final Result documented in this encounter Visit Diagnoses Diagnosis Colon cancer screening Special screening for malignant neoplasms, colon Adenomatous polyp of colon, unspecified part of colon documented in this encounter Admitting Diagnoses Diagnosis Colon cancer screening Special screening for malignant neoplasms, colon Adenomatous polyp of colon Benign neoplasm of colon documented in this encounter Administered Medications Inactive Administered Medications - up to 3 most recent administrations Medication Order MAR Action Action Date Dose Rate Site sodium chloride 0.9% flush 0.5-20 mL 0.5-20 mL, intra-catheter, As needed, line care, Starting on Giovanna 07/01/19 at 1507, Pre-Procedure (GI), Flush volume based on line type and size. Flush before and after each use. , Indications: FlushingIndications:Flushing sodium chloride 0.9% infusion 30 mL/hr, intravenous, Continuous, Starting on Giovanna 07/01/19 at 1545 Rate/Dose Verify 07/01/2019 4:06 PM CDT New Bag 07/01/2019 3:46 PM CDT 30 mL/hr 30 mL/hr documented in this encounter Active and Recently Administered Medications Times are shown in CDT. Continuous Medication Order 06/29/2019 06/30/2019 07/01/2019 sodium chloride 0.9% infusion 30 mL/hr, intravenous, Continuous, Starting on Giovanna 07/01/19 at 1545 1546 (New Bag - Prov ider: Renuka Flores, GARO)1606 (Rate/Dose Verify - Provider: Tracy Boudreaux CRNA)1629 (Anesthesia Volume Adjustment - Provider: Tracy Boudreaux CRNA)1702 (Stopped - Provider: Jennifer Anguiano RN) PRN Medication Order 06/29/2019 06/30/2019 07/01/2019 simethicone (MYLICON) 40 mg in sterile water 240 mL irrigation solution (CANCELED) As needed, Starting on Giovanna 07/01/19 at 1618, Intra-Op 1618 (Given - Provid er: Iliana Lamas RN - Comment: 30ml of simethicone solution used for irrigation of colon)1621 (Given - Provider: Iliana Lamas RN - Comment: 60ml of simethicone solution used for irrigation of colon) sodium chloride 0.9% flush 0.5-20 mL 0.5-20 mL, intra-catheter, As needed, line care, Starting on Giovanna 07/01/19 at 1507, Pre-Procedure (GI), Flush volume based on line type and size. Flush before and after each use. , Indications: Flushing documented in this encounter Orders Medications Ordered That Arthur ht Not Have Been Administered Count Last Ordered Date First Ordered Date simethicone (MYLICON) 40 mg in sterile water 240 mL irrigation solution 1 07/01/2019 sodium chloride 0.9% flush 0.5-20 mL 1 06/09 documented in this encounter Care Teams Pattern Chain Builder Relationship Specialty Start Date End Date Kailee Ramirez MD [address] Titi [address] [place] [address] PCP - General 12/06/16 06/29/23 documented as of this encounter
--- OUTSIDE RECORDS SUMMARY | 2024-09-19 06:10 | XMS_ITS | Encounter Summary ---
Author Organization [facility] Medical Group Address [address] [place] [address] Care Team Providers Care Pourer Name Role Phone Kailee Ramirez MD Primary Care Provider [phone] Reason for Visit * Reason Comments Hypertension Encounter Details Date Type Department Care Team (Late st Contact Info) Description 12/20/2020 11:30 AM CDT Office Visit [facility] Medical Group at the [address] [place] [address] Kailee Ramirez MD [address] [place] [address] [address] [place] [address] Essential hypertension (Primary Dx) Social History Tobacco Use Types Packs/Day Years Used Date Smoking Tobacco: Never Smokeless Tobacco: Never Alcohol Use Standard Drinks/Week Comments No 0 (1 standard drink = 0.6 oz pur e alcohol) PHQ-2 Answer Date Recorded PHQ-2 Total Score (If total score is 3 or more points, staff should administer the PHQ-9) 0 12/20/2020 Comments No Sex and Gender Information Value Date Recorded Sex Assigned at Not on file 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[employer] Gender Identity Not on file Sexual Orientation Not on file documented as of this encounter Last Filed Vital Signs Vital Sign Reading Time Taken Comments Blood Pressure 124/80 12/20/2020 11:12 AM CDT Pulse - - Temperature - - Respiratory Rate - - Oxygen Saturation - - Inhaled Oxygen Concentration - - Weight 77.6 kg (171 lb) 12/20/2020 11:12 AM CDT Height 167.6 cm (5' 6 ) 12/20/2020 11:12 AM CDT Body Mass Index 27.6 12/20/2020 11:12 AM CDT documented in this encounter Ordered Prescriptions Prescription Sig Dispense Quantity Refills Last Filled Start Date End Date triamterene-hydroC HLOROthiazide (triamterene-hydro CHLOROthiazide) 37.5-25 mg per tablet/capsule Take 1 tablet/capsu le by mouth daily 90 tablet 1 12/20/2020 08/12/2021 lisinopriL (PRINIVIL,ZESTRIL) 5 mg tablet Take 1 tablet (5 mg total) by mouth daily 90 tablet 2 12/20/2020 11/10/2021 documented in this encounter Progress Notes * Kailee Ramirez MD - 12/20/2020 11:30 AM CDT Subjective/Objective Patient ID: Niraj Antonio is a 70 y.o. female. Chief Complaint Patient presents with ??? Hypertension HPI: She has no complaints She has had her COVID vaccine She is not having problem with her BP she has no headaches, chest pain or shortness of breath She is feeling well She has no problem with her medidation and she may need refills Hypertension This is a chronic problem. The current episode started more than 1 year ago. The problem is unchanged. The problem is controlled. Pertinent negatives include no blurred vision, chest pain, headaches,malaise/fatigue, neck pain, orthopnea, palpitations, peripheral edema or shortness of breath. Thereare no associated agents to hypertension. Past treatments include ROSALIND inhibitors and lifestyle changes. The current treatment provides significant improvement. There are no compliance problems. Current Outpatient Medications Medication Sig Dispense Refill ??? lisinopriL (PRINIVIL,ZESTRIL) 5 mg tablet Take 1 tablet (5 mg total) by mouth daily 90 tablet 2 ??? multivitamin tablet tablet take 1 tablet by oral route every day with food 0 0 ??? nutritional supplements liquid Take by mouth. ??? triamterene-hydroCHLOROthiazide (triamterene-hydroCHLOROthiazide) 37.5-25 mg per tablet/capsuleTake 1 tablet/capsule by mouth daily 90 tablet 1 No current facility-administered medications for this visit. Review of Systems Constitutional: Negative for chills, fatigue, fever and malaise/fatigue. HENT: Negative for trouble swallowing. Eyes: Negative for blurred vision and visual disturbance. Respiratory: Negative for cough and shortness of breath. Cardiovascular: Negative for chest pain, palpitations, orthopnea and leg swelling. Gastrointestinal: Negative for abdominal pain, nausea and vomiting. Genitourinary: Negative for frequency, hematuria and urgency. Musculoskeletal: Negative for arthralgias and neck pain. Skin: Negative for rash. Neurological: Negative for dizziness, syncope and headaches. Psychiatric/Behavioral: Negative for sleep disturbance. Vitals BP 124/80 Ht 167.6 cm (5' 6 ) Wt 77.6 kg (171 lb) BMI 27.60 kg/m?? Physical Exam Constitutional: Appearance: She is well-developed. HENT: Head: Normocephalic and atraumatic. Neck: Thyroid: No thyromegaly. Vascular: No JVD. Cardiovascular: Rate and Rhythm: Normal rate and regular rhythm. Heart sounds: Normal heart sounds. No murmur. Pulmonary: Effort: Pulmonary effort is normal. Breath [...] be continued Will reassess in 6 months. Other orders - lisinopriL (PRINIVIL,ZESTRIL) 5 mg tablet; Take 1 tablet (5 mg total) by mouth daily - triamterene-hydroCHLOROthiazide (triamterene-hydroCHLOROthiazide) 37.5-25 mg per tablet/capsule; Take 1 tablet/capsule by mouth daily documented in this encounter Miscellaneous Notes * Assessment & Plan Note - Kailee Ramirez MD - 12/20/2020 11:55 AM CDT Associated Problem(s): Essential hypertension Hypertension is [...] Unspecified essential hypertension documented in this encounter Discontinued Medications Medication Sig Discontinue Reason Start Date End Da te cholecalciferol (VITAMIN D3) 1,000 unit capsule 1 tablet by mouth daily Therapy completed 07/15/2012 12/20/2020 triamterene-hydroCHLOROt hiazide 37.5-25 mg per tablet TAKE ONE TABLET BY MOUTH ONCE DAILY Reorder 08/18/2020 12/20/2020 lisinopriL (PRINIVIL,ZESTRIL) 5 mg tablet TAKE ONE TABLET BY MOUTH ONCE DAILY Reorder 08/18/2020 12/20/2020 documented as of this encounter Care Teams Pourer Relationship Specialty Start Date End Date Kailee Ramirez MD [address] [place] [address] DR Titi ABBOTT [address] [place] [id number] PCP - General 12/06/16 06/29/23 documented as of this encounter
--- OUTSIDE RECORDS SUMMARY | 2024-09-19 06:10 | XMS_ITS | Encounter Summary ---
Author Organization [facility] Healthcare Address [address] [place] [address] Care Team Providers Care Cephalometric Analyst Name Role Phone Madhavi Gutiérrez MD Primary Care Provider Reason for Visit * Reason Comments Follow-up Pt is here for a f/u of her chest pain. 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 Gender Identity Not on file Sexual Orientation Not on file documented as of this encounter Last Filed Vital Signs Vital Sign Reading Time Taken Comments Blood Pressure 114/62 12/17/2023 1:58 PM CDT Pulse 79 12/17/2023 1:11 PM CDT Temperature - - Respiratory Rate - - Oxygen Saturation - - Inhaled Oxygen Concentration - - Weight 80.6 kg (177 lb 9.6 oz) 12/17/2023 1:11 P M CDT Height 165.1 cm (5' 5 ) 12/17/2023 1:11 PM CDT Body Mass Index 29.55 12/17/2023 1:11 PM CDT documented in this encounter Patient Instructions * Patient Instructions* Madhavi Gutiérrez MD - 12/17/2023 1:30 PM CDT Hypertension Education High fiber, low fat, low salt: the DASH diet or Mediterranean Diet Eat fresh and avoid canned or frozen foods that are heavily processed Exercise 30 minutes a day (45-60 minutes a day if you need to lose weight) The [place] [employer] recommends all adults get a minimum of 150 minutes of moderate physical activity a week. This can be completed as 30 minutes of brisk walking on most days of the week. Even 10 minutes of exercise a day can provide benefit and will add up over the week. If able, try to take the stairs instead of the elevator or park father away in the parking lot. Start slowand try to increase your amount of activity over several weeks. Exercise will help to improve your cholesterol readings and blood pressure and to be overall healthier. Maintain a healthy weight. Body mass index is 29.55 kg/m??. If your BMI (a ratio of your weight to your height) is over 25, it is recommended that you try to exercise and eat healthier in an effort to lose a few pounds Limit alcohol to no more than 1-2 drinks a day If you smoke, you should quit. Smoking increases your risk of heart attacks, strokes, lung disease and can make more blood pressure control worse. Consider checking your blood pressure (BP) 3 times per week at home. Please keep a log of your readings minimal goal <140/90, optimal <120/80 If BP is consistently running higher, call me Where can I go for more information? [place] [employer] National Center: http://www.americanheart.org In the top header, click ???Conditions?? . In the top header, click ???high blood pressure.?? For a printable blood pressure tracker, scroll toward the bottom of the page to Related Tools, and click ???HBP Trackers.?? 3-653-IIG-USA-1 or ( ) National Heart, Lung and Blood [place]: http://www.nhlbi.nih.gov/health/infoctr/index.htm Continue current medications: Yes. Please call office during routine office hours if any questions or concerns. See me in 7 months Dash Diet Following the DASH diet Eat 4 to 5 servings of fruit each day. A serving is 1 medium-sized piece of fruit, 1/2 cup chopped or canned fruit, 1/4 cup dried fruit, or 4 ounces (1/2 cup) of fruit juice. Choose fruit more often than fruit juice. Eat 4 to 5 servings of vegetables each day. A serving is 1 cup of lettuce or raw leafy vegetables, 1/2 cup of chopped or cooked vegetables, or 4 ounces (1/2 cup) of vegetable juice. Choose vegetablesmore often than vegetable juice. Get 3 servings of low-fat dairy each day. A serving is 8 ounces of milk, 1 cup of yogurt, or 1 1/2 ounces of cheese. Eat 7 to 8 servings of grains each day. A serving is 1 slice of bread, 1 ounce of dry cereal, or 1/2 cup of cooked rice, pasta, or cooked cereal. Try to choose whole-grain products as much as possible. Limit lean meat, poultry, and fish to 6 ounces each day. Six ounces is about the size of two decks of cards. Eat 4 to 5 servings of nuts, seeds, and legumes (cooked dried beans, lentils, and split peas) each week. A serving is 1/3 cup of nuts, 2 tablespoons of seeds, or 1/2 cup cooked dried beans or peas. Tips for success Start small. Do not try to make dramatic changes to your diet all at once. You might feel that you are missing out on your favorite foods and then be more likely to not follow the plan. Make small changes and stick with them. Once those changes become habit, add a few more changes. Try some of the following: Make it a goal to eat a fruit or vegetable at every meal and at snacks. This will make it easy to get the recommended amounts of fruits and vegetables each day. Try yogurt topped with fruit and nuts for a snack or healthy dessert. Add lettuce, tomato, cucumber, and onion to sandwiches. Combine a ready-made pizza crust with low-fat mozzarella cheese and lots of vegetable toppings. Tryusing tomatoes, squash, spinach, broccoli, carrots, cauliflower, and onions. Have a variety of cut-up vegetables with a low-fat dip as an appetizer instead of chips and dip. Sprinkle sunflower seeds or chopped almonds over salads. Or try adding chopped walnuts or almonds to cooked vegetables. Try some vegetarian meals using beans and peas. Add garbanzo or kidney beans to salads. Make burritos and tacos with mashed sylvester beans or black beans. documented in this encounter Ordered Prescriptions Prescription Sig Dispense Quantity Refills Last Filled Start Date End Date triamterene-hydroC HLOROthiazide 37.5-25 mg per tablet/capsuleIndi cations:Essential hypertension Take 1 tablet/capsu le by mouth daily 100 tablet 1 12/17/2023 06/21/2024 lisinopriL (PRINIVIL,ZESTRIL) 5 mg tabletIndications: Essential hypertension Take 1 tablet (5 mg total) by mouth daily 100 tablet 1 12/17/2023 06/01/2024 documented in this encounter Progress Notes * Madhavi Gutiérrez MD - 12/17/2023 1:30 PM CDT Chief Complaint Patient presents with Follow-up Pt is here for a f/u of her chest pain. SUBJECTIVE: Niraj Antonio is a 73 y.o. female here for follow up visit Rare chest pain if startled out of sleep or when really stressed ith her spouse. No activity related pain. HTN - on triamterene-HCTZ 37.5-25 and lisinopril 5 mg. Rarely checks BP. Iccasional elevation Cardiac ROS: denies irregular heartbeat, heart racing Neuro ROS: denies near syncope, dizziness, lightheadedness. Denies new TIA/CVA symptoms Denies diffuse muscle aches or muscle cramps Occasional physical activity but not as much as she would like Does some weights Current Outpatient Medications on File Prior to Visit Medication Sig Dispense Refill multivitamin tablet tablet take 1 tablet by oral route every day with food 0 0 nutritional supplements liquid Take by mouth. [DISCONTINUED] lisinopriL (PRINIVIL,ZESTRIL) 5 mg tablet Take 1 tablet (5 mg total) by mouth daily 90 tablet 1 [DISCONTINUED] triamterene-hydroCHLOROthiazide 37.5-25 mg per tablet/capsule Take 1 tablet/capsule by mouth daily 90 tablet 1 No current facility-administered medications on file prior to visit. No Known Allergies Social History Tobacco Use Smoking status: Never Smokeless tobacco: Never Substance and Sexual Activity Drug use: No Sexual activity: Not Currently Alcohol Use: Not on file OBJECTIVE: Vitals: 12/17/23 1311 12/17/23 1358 BP: 154/77 114/62 Pulse: 79 Weight: 80.6 kg (177 lb 9.6 oz) Height: 165.1 cm (5' 5 ) Body mass index is 29.55 kg/m??. Appears: alert, well appearing, and in no distress Lungs: clear to auscultation, no wheezes, rales, or rhonchi, no tachypnea, retractions, or cyanosis CV exam: regular rate and rhythm, normal S1 and S2, no murmurs Psych: normal mood and affect. Good insight and judgment. Normal thought process. Neuro: Alert and oriented x 3, Cranial nerves II-XII grossly intact. PERRLA. EOMI. Grossly non-focal ASSESSMENT & PLAN: Diagnoses and all orders for this visit: Essential hypertension (I10) (Primary) - lisinopriL (PRINIVIL,ZESTRIL) 5 mg tablet; Take 1 tablet (5 mg total) by mouth daily - triamterene-hydroCHLOROthiazide 37.5-25 mg per tablet/capsule; Take 1 tablet/capsule by mouth daily Other chest pain (R07.89) Stress at home (F43.9) Chronic. HTN controlled. Cont prescription Rx as indicated in HPI under HTN diagnosis. Rx refilled.Low sodium diet (DASH or Mediterranean), exercise, wt loss (if over weight) discussed Chest pain - chronic. likely non-cardiac due to home stress. Stress test negative. Monitor. If red flags, let me know Stress -s table. Discussed coping strategies to help with stress home. monitor Advised to call back directly if there are further questions, or if these symptoms fail to improve as anticipated or worsen, or any new concerns arise An After Visit Summary was printed and given to the patient. Follow up 7 months for Medicare Wellness Visit. Madhavi Gutiérrez MD documented in this encounter Plan of Treatment Not on file documented as of this encounter Visit Diagnoses Diagnosis Essential hypertension- Primary Unspecified essential hypertension Other chest pain Stress at home documented in this encounter Discontinued Medications Medication Sig Discontinue Reason Start Date End Da te triamterene-hydroCHLOROth iazide 37.5-25 mg per tablet/capsule Take 1 tablet/capsule by mouth daily Reorder 07/03/2023 12/17/2023 lisinopriL (PRINIVIL,ZESTRIL) 5 mg tabletIndications:Essenti al hypertension Take 1 tablet (5 mg total) by mouth daily Reorder 07/03/2023 12/17/2023 documented as of this encounter Care Teams Cephalometric Analyst Relationship Specialty Start Date End Date Madhavi Gutiérrez MD PCP - General Family Medicine 09/09/23 06/28/24 documented as of this encounter
--- OUTSIDE RECORDS SUMMARY | 2024-09-19 06:10 | XMS_ITS | Encounter Summary ---
Author Organization [facility] Healthcare Address [address] [place] [address] Care Team Providers Care Writer Producer Name Role Phone Madhavi Celaya MD Primary Care Provider Reason for Visit * Reason Onset Date Comments Echo Results 09/19/2023 Encounter Details Date Type Department Care Team (Late st Contact Info) Description 09/19/[address] 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 ING DEPARTMENT HELPER * Telephone Encounter - Josey Juarez ATC - 09/19/2023 1:19 PM CST ----- Message from Madhavi Celaya MD sent at 09/19/2023 12:52 PM PLATING DEPARTMENT HELPER ----- Patient's stress echocardiogram was negative. No signs of significant cardiovascular disease. I suspect a lot of the chest pain she is feeling is more related to stress and anxiety. I would monitor symptoms. If it becomes more persistent or new or concerning symptoms arise she should let us know ING DEPARTMENT HELPER documented in this encounter Plan of Treatment Not on file documented as of this encounter Visit Diagnoses Not on filedocumented in this encounter Care Teams Writer Producer Relationship Specialty Start Date End Date Madhavi Celaya MD PCP - General Family Medicine 09/09/23 06/28/24 documented as of this encounter
--- OUTSIDE RECORDS SUMMARY | 2024-09-19 06:10 | XMS_ITS | Encounter Summary ---
Author Organization [facility] Address [address] [facility] [address] [place] [address] Care Team Providers Care Guide Changer Name Role Phone Kailee Ramirez MD Primary Care Provider [phone] Reason for Referral * Diagnostic Imaging (Routine) - Closed Specialty Diagnoses / Procedures Referred By Ronny hastings Referred To Contact Diagnoses Asymptomatic menopause Procedures Dexa Axial Skeleton Bone Density 1 or 2 Site Kailee Ramirez MD [address] [place], [place] [address] [place] [address] Phone: tel: fax: [facility] Referral ID Status Reason Start Date Expiration Date Visits Re quested Visits Authorized [id number] Closed 06/21/2020 07/21/2021 1 1 Reason for Visit * Reason Comments Preventative Care Encounter Details Date Type Department Care Team (Late st Contact Info) Description 06/21/2020 11:30 AM CDT Office Visit [facility] at the [address] [place] [address] Kailee Ramirez MD [address] [place], [place] [address]CAR[address]SA [address] [place] [address] Medicare annual wellness visit, subsequent (Primary Dx); Essential hypertension; Vitamin D deficiency; Asymptomatic menopause Social History Tobacco Use Types Packs/Day Years [...] on file 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[employer] Gender Identity Not on file Sexual Orientation Not on file documented as of this encounter Last Filed Vital Signs Vital Sign Reading Time Taken Comments Blood Pressure 112/80 06/21/2020 11:25 AM CDT Pulse - - Temperature - - Respiratory Rate - - Oxygen Saturation - - Inhaled Oxygen Concentration - - Weight 78.5 kg (173 lb) 06/21/2020 11:25 AM CDT Height 167.6 cm (5' 6 ) 06/21/2020 11:25 AM CDT Body Mass Index 27.92 06/21/2020 11:25 AM CDT documented in this encounter Progress Notes * Kailee Ramirez MD - 06/21/2020 11:30 AM CDT MEDICARE ANNUAL WELLNESS VISIT Niraj Antonio is a 70 y.o. female here for Preventative Care Medicare Health Risk Assessment has been completed by the patient and scanned into the Media section of the chart. Problem List, Past Medical and Surgical History: Patient Active Problem List Diagnosis ??? Hypertension ??? Presbyopia of both eyes ??? Cataract ??? Meibomian gland dysfunction (MGD) of both eyes ??? Dry eye syndrome of both eyes ??? Medicare annual wellness visit, subsequent ??? Colon cancer screening ??? Adenomatous polyp of colon ??? Ptosis of eyelid, left Past Medical History: Diagnosis Date ??? Colon polyp ??? History of transfusion ??? Hypertension Past Surgical History: Procedure Laterality Date ??? BREAST BIOPSY Breast biopsy ??? COLONOSCOPY ??? HYSTERECTOMY Hysterectomy ??? POLYPECTOMY ??? UPPER GASTROINTESTINAL ENDOSCOPY Family History: Family History Problem Relation Age of Onset ??? Hypertension Other Family history of Hypertension; ??? Stroke Sister Stroke; ??? Hypertension Father's Brother Hypertension; Social History: Social History Socioeconomic History ??? Marital status: Spouse name: Not on file ??? Number of children: Not on file ??? Years of education: Not on file ??? Highest education level: Not on file Occupational History ??? Not on file Social Needs ??? Financial resource strain: Not on file ??? Food insecurity Worry: Not on file Inability: Not on file ??? Transportation needs Medical: Not on file Non-medical: Not on file Tobacco Use ??? Smoking status: Never Smoker ??? Smokeless tobacco: Never Used Substance and Sexual Activity ??? Alcohol use: No ??? Drug use: No ??? Sexual activity: Not on file Lifestyle ??? Physical activity Days per week: Not on file Minutes per session: Not on file ??? Stress: Not on file Relationships ??? Social connections Talks on phone: Not on file Gets together: Not on file Attends catholic service: Not on file Active member of club or organization: Not on file Attends meetings of clubs or organizations: Not on file Relationship status: Not on file ??? Intimate partner violence Fear of current or ex partner: Not on file Emotionally abused: Not on file Physically abused: Not on file Forced sexual activity: Not on file Other Topics Concern ??? Not on file Social History Narrative Agrees to blood/blood products: Y Allergies: No Known Allergies Medications: Current Outpatient Medications: ??? lisinopriL (PRINIVIL,ZESTRIL) 5 mg tablet, Take 1 tablet (5 mg total) by mouth daily, Disp: 90 tablet, Rfl: 2 ??? multivitamin tablet tablet, take 1 tablet by oral route every day with food, Disp: 0, Rfl: 0 ??? nutritional supplements liquid, Take by mouth., Disp: , Rfl: ??? triamterene-hydroCHLOROthiazide (triamterene-hydroCHLOROthiazide) 37.5-25 mg per tablet/capsule, Take 1 tablet/capsule by mouth daily, Disp: 90 tablet, Rfl: 2 ??? cholecalciferol (VITAMIN D3) 1,000 unit capsule, 1 tablet by mouth daily (Patient not taking: Reported on 11/10/2019), Disp: , Rfl: 0 Vitals: Vitals BP 112/80 (BP Location: Left arm, Patient Position: Sitting) Ht 167.6 cm (5' 6 ) Wt 78.5 kg (173 lb) BMI 27.92 kg/m?? Body mass index is 27.92 kg/m??. Exam: Physical Exam Constitutional: Appearance: She is well-developed. HENT: Head: Normocephalic and atraumatic. Right Ear: Tympanic membrane, ear canal and external ear normal. Left Ear: Tympanic membrane, ear canal and external ear normal. Nose: Nose normal. Mouth/Throat: Mouth: Mucous membranes are moist. Pharynx: Oropharynx is clear. No oropharyngeal exudate. Eyes: Extraocular Movements: Extraocular movements intact. Conjunctiva/sclera: Conjunctivae normal. Pupils: Pupils are equal, round, and reactive to light. Funduscopic exam: Right eye: No hemorrhage, exudate, AV nicking or papilledema. Left eye: No hemorrhage, exudate, AV nicking or papilledema. Neck: Musculoskeletal: Normal range of motion and neck supple. Thyroid: No thyromegaly. Vascular: No JVD. Trachea: No tracheal deviation. Cardiovascular: Rate and Rhythm: Normal rate and regular rhythm. Pulses: Normal pulses. Heart sounds: Normal heart sounds. No murmur. Pulmonary: Effort: Pulmonary effort is normal. Breath sounds: Normal breath sounds. Chest: Chest wall: No tenderness. Breasts: Right: Normal. No inverted nipple, mass, nipple discharge, skin change or tenderness. Left: Normal. No inverted nipple, mass, nipple discharge, skin change or tenderness. Abdominal: General: Bowel sounds are normal. Palpations: Abdomen is soft. Tenderness: There is no abdominal tenderness. Musculoskeletal: Normal range of motion. Lymphadenopathy: Cervical: No cervical adenopathy. Skin: General: Skin is warm and dry. Neurological: General: No focal deficit present. Mental Status: She is alert and oriented to person, place, and time. Cranial Nerves: No cranial nerve deficit. Deep Tendon Reflexes: Reflexes normal. Psychiatric: Mood and Affect: Mood normal. Behavior: Behavior normal. Care Team Providers: Patient Care Team: Kailee Ramirez MD as PCP - General Primary Pharmacy/DME suppliers: [id number] IN [place], [place] - [address] [facility] [address] [facility] [id number] Detection of Cognitive Impairment: The patient does not have cognitive impairment based on direct observation, discussion with patientor family, or review of medical records. Health Maintenance: Health Maintenance Topics with due status: Overdue Topic Date Due DTaP/Tdap/Td Vaccine 1961 Osteoporosis Screening-Bone Density Scan 05/11/2016 Regular Well Visit/Exam 05/05/2020 Health Maintenance Topics with due status: Not Due Topic Last Completion Date Colon Cancer Screening-Colonoscopy 07/01/2019 Breast Cancer Screening-Mammogram 04/14/2020 Fall Risk Assessment 06/21/2020 Depression Screening-PHQ 06/21/2020 Health Maintenance Topics with due status: Completed Topic Last Completion Date Hepatitis C Screening 05/11/2014 Zoster Vaccines 07/26/2019 Pneumococcal (PCV13 & PPSV23) 65+ yrs 11/10/2019 Influenza Vaccine 06/12/2020 Counseling and Referral of Preventative Services: Lifestyle Recommendations Increase Physical Activity and Improve Diet Advanced Directive Durable Power of Sports Information Director: Discussed Today: Living Will: Discussed Today: - Assessment and Plan: Diagnoses and all orders for this visit: Medicare annual wellness visit, subsequent (Primary) Assessment & Plan: Encouraged healthy eating and regular exercise Essential hypertension Assessment & Plan: BP is at goal on the current medicatoin Orders: - CBC with auto differential; Future - Comprehensive metabolic panel (Outreach); Future - Lipid panel; Future - Urinalysis reflex to microscopic and culture Urine, clean voided; Future Vitamin D deficiency - Vitamin D 25 hydroxy; Future Asymptomatic menopause - Dexa Axial Skeleton Bone Density 1 or 2 Site; Future Patient here for annual Medicare wellness visit and for review of complete medical problem list. All the elements of the plan were completed as outlined by CMS. A copy of the prevention plan was given to the patient. I reviewed Medicare Wellness Questionnaire (other physicians involved in care, depression screen, advanced directives), cognitive/memory, and functional assessment. I reviewed and updated the complete problem list, medication list, family history, and immunization records with the patient. I provided preventive counseling and early detection interventions to the patient through health maintenance update and summary of today's office visit. documented in this encounter Miscellaneous Notes * Assessment & Plan Note - Kailee Ramirez MD - 06/21/2020 12:42 PM CDT Associated Problem(s): Essential hypertension BP is at goal on the current medicatoin * Assessment & Plan Note - Kailee Ramirez MD - 06/21/2020 12:41 PM CDT Associated Problem(s): Encounter for annual physical exam Encouraged healthy eating and regular exercise documented in this encounter Plan of Treatment Not on file documented as of this encounter Results * Dexa Axial Skeleton Bone Density 1 or 2 Site (12/20/2020 11:37 AM CDT) Anatomical Region Laterality Modality Body N/A Digital Radiogra phy 12/20/2020 11:4 5 AM CDT Impressions 12/20/2020 11:45 AM CDT ?? 1. The bone mineral density of the lumbar spine is mildly decreased. 2. The bone mineral density of the left femoral neck is mildly decreased. 3. The bone mineral density of the left total hip is mildly decreased. 4. Overall, the above findings are diagnostic of low bone mass (osteopenia) by WHO criteria. 5. Based on the FRAX fracture risk model, the 10-year probability for major osteoporotic fracture is 4.3% and that for hip fracture is 0.6%. This 10-year fracture risk estimate was calculated [...] the [place].-adapted WHO algorithm), available at http://www.shef.ac.uk/FRAX). The radiology attending physician has personally reviewed this study, and had reviewed and/or edited this written report and agrees with it. Electronically signed by: Al Marx M.D., Ph.D. Narrative 12/20/2020 11:45 AM CDT BONE DENSITOMETRY OF THE SPINE AND HIP DATE OF STUDY: ??12/20/2020 HISTORY: ??70-year-old postmenopausal woman with cessation of menstruation at age 50. ??She is being treated with vitamin D. Evaluate bone mineral density. Additional risk factors for fracture: none. FINDINGS (SPINE): The bone mineral density of L1-L4 was assessed by dual-energy x-ray absorptiometry. The average bone mineral density within this region is 0.870 gm/sq-cm. This is 0.2 standard deviations below the mean of the [...] density within the femoral neck region is 0.705 gm/sq-cm. This is 0.3 standard deviations below [...] density within the total hip region is 0.813 gm/sq-cm. This is 0.2 standard deviations below the mean of the average bone mineral density for age- and gender-matched subjects (the Z-score). It is 1.1 standard deviations below the mean peak bone mineral density in young adults (the T-score). SUMMARY OF CURRENT RESULTS: Region ? BMD ?T-score ??Z-score ?? AP Spine (L1-L4) ? 0.870 ?? -1.6 ? -0.2 ? Femoral Neck (Left) ?0.705 ?? -1.3 ? -0.3 ? Total Hip (Left) ? 0.813 ?? -1.1 ? -0.2 ? Procedure Note Al Marx MD - 12/20/2020 BONE DENSITOMETRY OF THE SPINE AND HIP DATE OF STUDY: 12/20/2020 HISTORY: 70-year-old postmenopausal woman with cessation of menstruation at age 50. She is being treated with vitamin D. Evaluate bone mineral density. Additional risk factors for fracture: none. FINDINGS (SPINE): The bone mineral density of L1-L4 was assessed by dual-energy x-ray absorptiometry. The average bone mineral density within this region is 0.870 gm/sq-cm. This is 0.2 standard deviations below the mean of the [...] density within the femoral neck region is 0.705 gm/sq-cm. This is 0.3 standard deviations below [...] density within the total hip region is 0.813 gm/sq-cm. This is 0.2 standard deviations below the mean of the average bone mineral density for age- and gender-matched subjects (the Z-score). It is 1.1 standard deviations below the mean peak bone mineral density in young adults (the T-score). SUMMARY OF CURRENT RESULTS: Region BMD T-score Z-score AP Spine (L1-L4) 0.870 -1.6 -0.2 Femoral Neck (Left) 0.705 -1.3 -0.3 Total Hip (Left) 0.813 -1.1 -0.2 IMPRESSION: 1. The bone mineral density of the lumbar spine is mildly decreased. 2. The bone mineral density of the left femoral neck is mildly decreased. 3. The bone mineral density of the left total hip is mildly decreased. 4. Overall, the above findings are diagnostic of low bone mass (osteopenia) by WHO criteria. 5. Based on the FRAX fracture risk model, the 10-year probability for major osteoporotic fracture is 4.3% and that for hip fracture is 0.6%. This 10-year fracture risk estimate was calculated [...] the [place].-adapted WHO algorithm), available at http://www.shef.ac.uk/FRAX). The radiology attending physician has personally reviewed this study, and had reviewed and/or edited this written report and agrees with it. Electronically signed by: Al Marx M.D., Ph.D. us Kailee Ramirez MD IM DXA PROCEDURES Final Res ult * (ABNORMAL) Urinalysis reflex to microscopic and culture Urine, clean voided (06/21/2020 12:41 PM CDT) Color, ur Yellow Yellow [facility] Clarity, ur Cloudy(A) Clear [facility] Specific gravity, ur 1.028(H) 1.010 - 1.025 [facility] pH, urine 5 [facility] Protein, ur ql 2+(A) Negative [facility] Glucose, ur ql Negative Negative [facility] Ketones, ur Negative Negative [facility] Bilirubin, ur Negative Negative [facility] Blood, ur Negative Negative [facility] Comment:Ascorbic acid identi fied in urine; possible false negative blood result. A microscopic exam will be added to identify RBCs. Urobilinogen, ur <2.0 <2.0 mg/dL [facility] Nitrite, ur Negative Negative [facility] Leukocyte esterase, ur 1+(A) Negative [facility] UA reflex comment Reflex to microscopic UA will be performed. [facility] Urine, clean voided 06/21/2020 12:41 PM CDT 06/21/2020 4:16 PM CDT Narrative [facility] - 06/21/2020 4:29 PM CDT ?? Urine pH is affected by diet, medications, systemic acid-base disturbances, and renal tubular function. ??pH may affect urinary stone formation. ??For example, urine pH below 6.0 may help reduce the tendency for calcium phosphate stones and pH greater than 6.0 may reduce the tendency for uric acid stone formation. Source: [place] [employer]. Last revised 09-18-2017 us Kailee Ramirez MD LAB MICROBIOLOGY - GENERAL O AR[place] Final Result [facility] Department [place] [address] * (ABNORMAL) Lipid panel (06/21/2020 12:39 PM CDT) Cholesterol 175 30 - 199 mg/dL [facility] Comment: Interpretive Data Ages < or = 19 years ??Acceptable: ? <170 mg/dL ??Borderline high: ??170-199 mg/dL ??High: ? >or= 200 mg/dL Ages > or = 20 years ??Desirable: ?<200 mg/dL ??Borderline high: ??200-239 mg/dL ??High: ? >or= 240 mg/dL Literature References: 1. Expert Panel on Integrated Guidelines for Cardiovascular Health and Risk Reduction in Children and Adolescents. Pediatrics 2011;128:S213 2. NCEP Expert Panel. Circulation 2004;110:227 Current Interpretive Data was last revised on 2018. Triglycerides 158(H) <=149 mg/dL [facility] Comment: Interpretive Data Ages < or = 9 years ??Acceptable: ? <75 mg/dL ??Borderline high: ??75-99 mg/dL ??High: ? >or= 100 mg/dL Ages 10 to 20 years ??Acceptable: ? <90 mg/dL ??Borderline high: ??90-129 mg/dL ??High: ? >or= 130 mg/dL Ages > or = 20 years ??Desirable: ?<150 mg/dL ??Borderline high: ??150-199 mg/dL ??High: ? 200-499 mg/dL ?Very high: ?? >or= 499 mg/dL Literature References: 1. Expert Panel on Integrated Guidelines for Cardiovascular Health and Risk Reduction in Children and Adolescents. Pediatrics 2011;128:S213 2. NCEP Expert Panel. Circulation 2004;110:227 Current Interpretive Data was last revised on 2018. HDL 37(L) >=40 mg/dL [facility] Comment: Interpretive Data Ages < or = 19 years ??Acceptable: ? >45 mg/dL ??Borderline low: ?? 40-45 mg/dL ??Low: ? <40 mg/dL Ages > or = 20 years ??Desirable: ?>or= 60 mg/dL ??Low: ? <40 mg/dL Literature References: 1. Expert Panel on Integrated Guidelines for Cardiovascular Health and Risk Reduction in Children and Adolescents. Pediatrics 2011;128:S213 2. NCEP Expert Panel. Circulation 2004;110:227 Current Interpretive Data was last revised on 2018. LDL, calculated 106 <=129 mg/dL [facility] Comment: Interpretive Data Ages < or = 19 years ??Acceptable: ? <110 mg/dL ??Borderline high: ??110-129 mg/dL ??High: ?>or= 130 mg/dL Ages > or = 20 years ??Optimal: ? <100 mg/dL ??Near optimal: ?100-129 mg/dL ??Borderline high: ?? 130-159 mg/dL ??High: ?>160 mg/dL Literature References: 1. Expert Panel on Integrated Guidelines for Cardiovascular Health and Risk Reduction in Children and Adolescents. Pediatrics 2011;128:S213 2. NCEP Expert Panel. Circulation 2004;110:227 Current Interpretive Data was last revised on 2018. Non-HDL Cholesterol 138 mg/dL [facility] Comment: Interpretive Data Ages < or = 19 years ??Acceptable: ?<120 mg/dL ??Borderline high: ??120-144 mg/dL ??High: ?>145 mg/dL Ages > or = 20 years ??When triglycerides are >200 mg/dL, Non-HDL cholesterol is a secondary target of ? therapy with treatment goals that are 30 mg/dL greater than the LDL cholesterol target. ? Literature References: 1. Expert Panel on Integrated Guidelines for Cardiovascular Health and Risk Reduction in Children and Adolescents. Pediatrics 2011;128:S213 2. NCEP Expert Panel. Circulation 2004;110:227 Current Interpretive Data was last revised on 2018. Chol/HDL ratio 5 [facility] Blood specimen (specimen) 06/21/2020 12:39 PM CDT 06/21/2020 1:59 PM CDT Narrative [facility] - 06/21/2020 2:30 PM CDT Has the patient been fasting for 8 hours or more?->No Has the patient fasted?->No us Kailee Ramirez MD LAB BLOOD ORDERABLES Final R esult [facility] [place] [address] * Vitamin D 25 hydroxy (06/21/2020 12:39 PM CDT) Vitamin D 25-OH 35 30 - 80 ng/mL [facility] Blood specimen (specimen) 06/21/2020 12:39 PM CDT 06/21/2020 1:59 PM CDT Kailee Ramirez MD LAB BLOOD ORDERABLES Final R esult [facility] [place] [place] [address] * (ABNORMAL) CBC with auto differential (06/21/2020 12:39 PM CDT) WBC 6.6 3.8 - 9.9 K/cumm [facility] Hgb 11.6(L) 11.9 - 15.5 g/dL [facility] Hct 36.2 35.6 - 45.5 % [facility] Plt 270 150 - 400 K/cumm [facility] MPV 9.7 9.1 - 12.3 fL [facility] RBC 4.24 3.90 - 5.20 M/cumm [facility] MCV 85.4 81.3 - 96.4 fL [facility] MCH 27.4 27.1 - 33.3 pg [facility] MCHC 32.0(L) 32.3 - 35.7 g/dL [facility] RDW CV 13.1 11.1 - 14.9 % [facility] RDW SD 40.2 35.7 - 48.1 fL [facility] NRBC abs 0.00 0.00 - 0.01 K/cumm [facility] Blood specimen (specimen) 06/21/2020 12:39 PM CDT 06/21/2020 2:00 PM CDT us Kailee Ramirez MD LAB BLOOD ORDERABLES Final R esult [facility] Department [place] [address] documented in this encounter Visit Diagnoses Diagnosis Medicare annual wellness visit, subsequent- Primary Essential hypertension Unspecified essential hypertension Vitamin D deficiency Asymptomatic menopause Essential hypertension Unspecified essential hypertension Vitamin D deficiency Asymptomatic menopause documented in this encounter Care Teams Guide Changer Relationship Specialty Start Date End Date Kailee Ramirez MD [facility] [address] [place] [address] PCP - General 12/06/16 06/29/23 documented as of this encounter
--- OUTSIDE RECORDS SUMMARY | 2024-09-19 06:10 | XMS_ITS | Encounter Summary ---
Author Organization [facility] Address [address] [facility] [address] [place] [address] Care Team Providers Care Mediator Name Role Phone Kailee Ramirez MD Primary Care Provider [phone] Encounter Details Date Type Department Care Team (Late st Contact Info) Description 06/24/2019 Orders Only [facility] at the [address] [place] [address] Aura Murray MA Benign neoplasm of colon, unspecified part of colon (Primary Dx); Special screening for malignant neoplasms, colon Social History Tobacco Use Types Packs/Day Years Used Date Smoking Tobacco: Never Smokeless Tobacco: Never Alcohol Use Standard Drinks/Week Comments No 0 (1 standard drink = 0.6 oz pur e alcohol) PHQ-2 Answer Date Recorded PHQ-2 Score 0 05/01/2019 Comments No Sex and Gender Information Value Date Recorded Sex Assigned at Not on file 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
--- OUTSIDE RECORDS SUMMARY | 2024-09-19 06:10 | XMS_ITS | Encounter Summary ---
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
--- OUTSIDE RECORDS SUMMARY | 2024-09-19 06:10 | XMS_ITS | Encounter Summary ---
Author Organization [facility] Healthcare Address [address] [place] [address] Care Team Providers Care Dry Mop Maker Name Role Phone Madhavi Morales MD Primary Care Provider Reason for Referral * Cardiology (Routine) - Closed Specialty Diagnoses / Procedures Referred By Ronny hastings Referred To Contact Diagnoses Chest pain, unspecified type Nonspecific abnormal electrocardiogram (ECG) Procedures Stress Echo Exercise W Doppler/CF Madhavi Morales MD Phone: tel: fax: [address] [phone] Referral ID Status Reason Start Date Expiration Date Visits Re quested Visits Authorized [id number] Closed 09/10/2023 10/09/2024 1 1 PIPE GRADER Reason for Visit * Cardiology (Routine) - Closed Specialty Diagnoses / Procedures Referred By Ronny hastings Referred To Contact Diagnoses Chest pain, unspecified type Nonspecific abnormal electrocardiogram (ECG) Procedures Stress Echo Exercise W Doppler/CF Madhavi Morales MD Phone: tel: fax: [address] [phone] Referral ID Status Reason Start Date Expiration Date Visits Re quested Visits Authorized [id number] Closed 09/10/2023 10/09/2024 1 1 Encounter Details Date Type Department Care Team (Latest Contact Info) Description 09/18/2023 10:37 AM YARD PIPE GRADER - 09/18/2023 11:59 PM YARD PIPE GRADER Hospital Encounter [facility] Non-invasive Cardiac Diagnostic Testing [id number] [phone] Chest pain, unspecified type; Nonspecific abnormal electrocardiogram (ECG) Discharge Disposition: Discharge to home or self [...] on file Legal Sex Female 1:21 AM YARD PIPE GRADER Gender Identity Not on file Sexual Orientation Not on file documented as of this encounter Last Filed Vital Signs Vital Sign Reading Time Taken Comments Blood Pressure 135/70 09/18/2023 11:32 AM YARD PIPE GRADER Pulse 65 09/18/2023 11:32 AM YARD PIPE GRADER Temperature - - Respiratory Rate - - Oxygen Saturation - - Inhaled Oxygen Concentration - - Weight - - Height - - Body Mass Index - - documented in this encounter Medications at Time of Discharge multivitamin tablet tablet take 1 tablet by oral route every day with food 0 0 11/05/2016 nutritional supplements liquid Take by mouth. lisinopriL (PRINIVIL,ZESTRIL) 5 mg tabletIndications: Essential hypertension Take 1 tablet (5 mg total) by mouth daily 90 tablet 1 07/03/2023 12/17/2023 triamterene-hydroC HLOROthiazide 37.5-25 mg per tablet/capsule Take 1 tablet/capsu le by mouth daily 90 tablet 1 07/03/2023 12/17/2023 documented as of this encounter Discharge Disposition Disposition Code Departure Means Destination Discharge to home or self care documented in this encounter Plan of Treatment Not on file documented as of this encounter Procedures Procedure Name Priority Date/Time Associated Diagnosis Comments STRESS ECHO EXERCISE W DOPPLER/CF WO CONTRAST Routine 09/18/2023 12:15 PM YARD PIPE GRADER Chest pain, unspecified type Nonspecific abnormal electrocardiogram (ECG) documented in this encounter Results * STRESS ECHO EXERCISE W DOPPLER/CF WO CONTRAST (09/18/2023 12:15 PM YARD PIPE GRADER) Anatomical Region Laterality Modality Nuclear Medicine 09/18/2023 10:4 2 AM YARD PIPE GRADER Narrative 09/18/2023 1:11 [place] [address] Stress Echocardiogram Report Patient Name: CARTER ANTONIO : 1950 Study Date: 09/18/2023 10:42:30 AM Gender: F Tech: Ref Provider: MADHAVI MORALES Height(Cm): ??BSA: Weight(Kg): ? Heart Rate: 125 Quality: Good Order Provider: MADHAVI MORALES PROCEDURES: Stress Echo Report: ??Treadmill stress echocardiogram INDICATIONS: Abnormal EKG, and Chest Pain. FINDINGS: Stress Echo: ??Exercise Time: 03:44 Resting HR 67 bpm Peak HR: 125 bpm Predicted Maximal HR 147 bpm Target HR: 125 bpm Percent Max Predicted HR Achieved: 85 % Baseline BP: 135/70 Peak BP: 211/69 METS achieved: 5 Rate-Pressure Product: 27975 BPM*mmHg Percent Max Predicted HR Achieved: 85 % Supervising Physician: ??The Supervising Physician is Dr. Abebe Performance: ??Average exercise functional capacity. Hemodynamic Response: ??Hypertensive blood pressure response. Arrhythmia: ??No exercise induced arrhythmias. Cardiac Symptoms With Stress: ??Symptoms with stress were None. Termination: ??Target HR achieved. Leg Fatigue. Resting ECG: ??Sinus rhythm, non-specific ST-T abnormality. Exercise ECG: ??Non-diagnostic ST-T wave changes with exercise. Resting LV Function: ??Normal left ventricular size and systolic function with normal wall thickness Post Stress LV Function: ??Hyperdynamic global contractility, no segmental wall motion abnormality, chamber size smaller. CONCLUSIONS: No ECG evidence of ischemia. No Echocardiographic evidence of ischemia. Normal stress echo. Electronically Signed By: Renetta Abebe DO, FACShanthi, ROXANA THOMPSON 2023-09-18 13:10:59 YARD PIPE GRADER CC: CC: CC: Procedure Note Renetta Abebe DO - 09/18/2023 [place] [address] Stress Echocardiogram Report Patient Name: CARTER ANTONIO : [id number] Study Date: 09/18/2023 10:42:30 AM Gender: F Tech: Ref Provider: MADHAVI MORALES Height(Cm): BSA: Weight(Kg): Heart Rate: 125 Quality: Good Order Provider: MADHAVI MORALES PROCEDURES: Stress Echo Report: Treadmill stress echocardiogram INDICATIONS: Abnormal EKG, and Chest Pain. FINDINGS: Stress Echo: Exercise Time: 03:44 Resting HR 67 bpm Peak HR: 125 bpm PredictedMaximal HR 147 bpm Target HR: 125 bpm Percent Max Predicted HR Achieved: 85 % Baseline BP:135/70 Peak BP: 211/69 METS achieved: 5 Rate-Pressure Product: 60979 BPM*mmHg Percent MaxPredicted HR Achieved: 85 % Supervising Physician: The Supervising Physician is Dr. Abebe Performance: Average exercise functional capacity. Hemodynamic Response: Hypertensive blood pressure response. Arrhythmia: No exercise induced arrhythmias. Cardiac Symptoms With Stress: Symptoms with stress were None. Termination: Target HR achieved. Leg Fatigue. Resting ECG: Sinus rhythm, non-specific ST-T abnormality. Exercise ECG: Non-diagnostic ST-T wave changes with exercise. Resting LV Function: Normal left ventricular size and systolic function with normal wallthickness Post Stress LV Function: Hyperdynamic global contractility, no segmental wall motion abnormality,chamber size smaller. CONCLUSIONS: No ECG evidence of ischemia. No Echocardiographic evidence of ischemia. Normal stress echo. Electronically Signed By: Renteta Abebe DO, JAY BROCK FASNC 2023-09-18 13:10:59 YARD PIPE GRADER CC: CC: CC: Madhavi Morales MD CV ECHO PROCEDURES Fin al Result documented in this encounter Visit Diagnoses Diagnosis Chest pain, unspecified type Nonspecific abnormal electrocardiogram (ECG) Nonspecific abnormal electrocardiogram (ECG) (EKG) documented in this encounter Care Teams Dry Mop Maker Relationship Specialty Start Date End Date Madhavi Morales MD PCP - General Family Medicine 09/09/23 06/28/24 documented as of this encounter
--- OUTSIDE RECORDS SUMMARY | 2024-09-19 06:10 | XMS_ITS | Encounter Summary ---
Author Organization [facility] Facility Care Team Providers Care Sports Management Professor Name Role Phone Kailee Ramirez MD Primary Care Provider [phone] Encounter Details Date Type Department Care Team (Late st Contact Info) Description 04/11/2014 - 04/11/2014 11:59 PM T Hospital Encounter [facility] Kailee Ramirez MD [facility] [facility] [address] [place] [address] [address] Other screening mammogram Social History Tobacco Use Types Packs/Day Years Used Date Smoking Tobacco: Never Assessed Comments Unknown Sex and Gender Information Value Date Recorded Sex Assigned at Not on file 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 Gender Identity Not on file Sexual Orientation Not on file documented as of this encounter Medications at Time of Discharge cholecalciferol (VITAMIN D3) 1,000 unit capsule 1 tablet by mouth daily 0 07/15/2012 12/20/2020 lisinopril (PRINIVIL,ZESTRIL ) 5 mg tablet TAKE ONE TABLET BY MOUTH ONCE DAILY 90 1 12/04/2011 05/06/2017 triamterene-hydro CHLOROthiazide (MAXZIDE-25MG) 37.5-25 mg per tablet TAKE ONE TABLET BY MOUTH ONCE DAILY 90 1 12/04/2011 05/06/2017 documented as of this encounter Plan of Treatment Not on file documented as of this encounter Procedures Procedure Name Priority Date/Time Associated Diagnosis Comments SCREENING MAMMOGRAM Routine 04/11/2014 1 2:49 PM CDT documented in this encounter Results * Screening Mammogram (04/11/2014 12:49 PM CDT) Anatomical Region Laterality Modality Breast N/A Mammography 04/11/2014 12:4 9 PM CDT Narrative 04/12/2014 1:43 PM CDT SHARON ALEJANDRO M.D. FINAL REPORT ACC# ??Date Time ??Exam [id number] Apr 11, 2014 12:49:00 [facility] [place] [address] Screening Mamm Bilat ?? Technologist(s): Sheyla Dc; ; EXAMINATION: ??Mammogram Technique: Bilateral Full-Field Digital Screening Mammogram was performed. ??Views obtained: ??bilateral craniocaudal and bilateral mediolateral oblique. Computer Aided Detection was performed with WePlann.3 version 9.3. Mammogram Findings: The present examination has been compared to prior imaging studies performed at [facility] on 04/05/2013, 03/12/2012 and 03/01/2011. There are scattered fibroglandular densities. There are calcifications in both breasts. Finding remains unchanged from the prior study. IMPRESSION: ??Calcifications in both breasts are benign. Annual screening mammography is recommended. OVERALL FINAL ASSESSMENT: BI-RADS CATEGORY 2: ??Benign. Requested By: Kailee Ramirez ??MWilferd Dictated By: ?? SHARON ALEJANDRO M.D. ??on Apr ??2013 ??1:43P This document has been electronically signed by: SHARON ALEJANDRO M.D. on Apr ??2013 ??1:43P Procedure Note Provider, MD Vinicius - 12/28/2016 SHARON ALEJANDRO M.D. FINAL REPORT ACC# Date Time Exam [id number] Apr 11, 2014 12:49:00 [facility], [place] [address] Screening Mamm Bilat Technologist(s): Sheyla Dc; ; EXAMINATION: Mammogram Technique: Bilateral Full-Field Digital Screening Mammogram was performed. Views obtained: bilateral craniocaudal and bilateral mediolateral oblique. Computer Aided Detection was performed with WePlann.3 version 9.3. Mammogram Findings: The present examination has been compared to prior imaging studies performed at [facility] on 04/05/2013, 03/12/2012 and 03/01/2011. There are scattered fibroglandular densities. There are calcifications in both breasts. Finding remains unchanged from the prior study. IMPRESSION: Calcifications in both breasts are benign. Annual screening mammography is recommended. OVERALL FINAL ASSESSMENT: BI-RADS CATEGORY 2: Benign. Requested By: Kailee Ramirez M.D. Dictated By: SHARON ALEJANDRO M.D. on Apr 12 2014 1:43P This document has been electronically signed by: SHARON ALEJANDRO M.D. on Apr 12 2014 1:43P us Historical Provider MD SERRATO MAMMO PROCEDURES Lucy l Result documented in this encounter Visit Diagnoses Diagnosis Other screening mammogram documented in this encounter Care Teams Sports Management Professor Relationship Specialty Start Date End Date Kailee Ramirez MD [facility] [facility] [address] [address] PCP - General 12/04/11 02/19/16 documented as of this encounter
--- OUTSIDE RECORDS SUMMARY | 2024-09-19 06:10 | XMS_ITS | Encounter Summary ---
Author Organization [facility] Healthcare Address [address] [place] [address] Care Team Providers Care Warehouse Foreman Name Role Phone Madhavi Celaya MD Primary Care Provider Sonya Reed RN Unavailable Encounter Details Date Type Department Care Team (Late st Contact Info) Description 05/18/2024 Telephone [facility] Primary Care at [address] [phone] Madhavi Celaya MD [address] [place] [address] [address] [place] [address] Social History Tobacco Use Types Packs/Day Years Used Date Smoking Tobacco: Never Smokeless Tobacco: Never Alcohol Use Standard Drinks/Week Comments No 0 (1 standard drink = 0.6 oz pur e alcohol) [facility] Utilities Answer Date Recorded In the past 12 months has [employer], gas, oil, or water [employer] threatened to shut off services in your [...] week 05/07/2024 How often do you attend [facility] or synagogue services? More than 4 times per year 05/07/2024 Do you belong to any clubs o r organizations such as mormon groups, unions, fraternal or athletic groups, or school groups? No 05/07/2024 How often do you attend meet ings of the clubs or organizations you belong to? Never 05/07/2024 Are you , , di vorced, , never , or living with a partner? 05/07/2024 AUDIT-C Answer Date Recorded Q1: How often do you have a drink containing alcohol? Never 05/18/2024 Q2: How many drinks containi ng alcohol do you have on a typical day when you are drinking? Patient does not drink Q3: How often do you have si x or more drinks on one occasion? Never 05/18/2024 Overall Financial Resource Strain (CARDIA) Answe r Date Recorded How hard is it for you to pa y for the very basics like food, housing, medical care, and heating? Not hard at all 05/07/2024 PHQ-2 Answer Date Recorded PHQ-2 Total Score (If total score is 3 or more points, staff should administer the PHQ-9) 0 05/18/2024 Hunger Vital Sign Answer Date Recorded Within [...] any time in the past 12 m [facility], were you homeless or living in a snf (including now)? 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 They state that the qty and directions do not match and it needs verified. Please call back at [phone] documented in this encounter Plan of Treatment Not on file documented as of this encounter Goals Goal Patient Goal Type Associated Problems Recent Progress Patient-Stated? Author ELADIO General Goal - Patient schedules and keeps appointments with all recommended providers ACO Care Management Sonya Rojas RN Note: Problem: Potential for medical complications [...] activities to utmost capability ACO Care Management Sonya Rojas RN Note: Problem: At Risk for Self [...] on filedocumented in this encounter Care Teams Warehouse Foreman Relationship Specialty Start Date End Date Madhavi Celaya MD PCP - General Family Medicine 09/09/23 06/28/24 Sonya Reed RN [address] [place] [address] [address] ABBOTT [address] [place] [id number] Hand Cultivator 05/07/24 06/01/24 documented as of this encounter
[2024-09-20 15:43] LABS: Source SWAB
== END 2024-09-14 03:55 | disposition expired | DRG 871 ==
LOC: ANHED 18:23 → ANHICU 18:28
PROVIDERS: Internal Medicine; Internal Medicine Gastroenterology; Internal Medicine Nephrology; Nurse Practitioner Acute Care; Admitting Provider Internal Medicine; Emergency Provider Student in an Organized Health Care Education/Training Program; PCP Family Medicine Sports Medicine; Visit Provider Internal Medicine
DX: A41.9 Sepsis, unspecified organism (principal); I21.A1 Myocardial infarction type 2; J18.9 Pneumonia, unspecified organism; J96.01 Acute respiratory failure with hypoxia; N17.9 Acute kidney failure, unspecified; J90 Pleural effusion, not elsewhere classified; K92.0 Hematemesis; I48.91 Unspecified atrial fibrillation; I10 Essential (primary) hypertension; I27.20 Pulmonary hypertension, unspecified; K21.9 Gastro-esophageal reflux disease without esophagitis; R65.20 Severe sepsis without septic shock
CPT/HCPCS: 36415; 36430; 36600; 70450; 71045; 74177; 76705; 76775; 80048; 80053; 80074; 80202; 80307; 81001; 82248; 82375; 82550; 82570; 82805; 82948; 83050; 83520; 83605; 83735; 83880; 83883; 84100; 84155; 84156; 84165; 84166; 84300; 84484; 84540; 85014; 85018; 85025; 85027; 85055; 85380; 85610; 85730; 85999; 86036; 86038; 86039; 86140; 86160; 86703; 86704; 86706; 86738; 86850; 86900; 86901; 86923; 87040; 87086; 87254; 87340; 87449; 87637; 87641; 87899; 93005; 93970; 94002; 94640; 96361; 96374; 96375; 99291; C1751; G0432; J0153; J0282; J0692; J2405; J2470; J2543; J2765; J3370; J7040; J7050; J7120; P9016; P9047; Q9967